=== PATIENT | male | born 1940 | race Caucasian/White ===

== ENCOUNTER → 2017-07-25 09:57 | Outpatient (CLI) | payer MEDICARE, OTHER, SELFPAY ==
[2017-07-25 12:25] LABS: Anion Gap 7 (5-15); BUN 18 mg/dL (7-18); BUN/Creat Ratio 19.7 RATIO (10-20); Calcium,Total 8.2 mg/dL (8.5-10.1); Chloride 109 mmol/L (98-107); Cholesterol 204 mg/dL (200); Creatinine, Serum 0.92 mg/dL (0.70-1.30); EST Glomerular Filtration Rate 86 mL/min (>60); Est Glom Filt Rate - Afr Amer 104 mL/min (>60); Glucose 103 mg/dL (74-106); High Density Lipoprotein 47 mg/dL; PSA,Total - Annual Screen 1.86 ng/mL (0.00-4.00); Potassium 4.3 mmol/L (3.5-5.1); Sodium Level 140 mmol/L (136-145); Triglycerides 103 mg/dL; Very Low Density Lipoprotein 21 mg/dL (5-40)
[2017-07-26 10:00] LABS: Vitamin D,25 Hydroxy 27.5 ng/mL (29.95-100.01)
== END ==
PROVIDERS: Family Provider Family Medicine; PCP Family Medicine; Visit Provider Family Medicine
DX: Z00.00 Encounter for general adult medical examination without abnormal findings (principal)
CPT/HCPCS: 36415; 80048; 80061; 82306; 84153; G0103

== ENCOUNTER → 2018-07-28 10:24 | Outpatient (CLI) | payer MEDICARE, OTHER, SELFPAY ==
[2018-06-17 08:49] VITALS: BMI 30.5
[2018-07-28 12:49] LABS: Vitamin D,25 Hydroxy 33.9 ng/mL (29.95-100.01)
[2018-07-28 12:58] LABS: Anion Gap 6 (5-15); BUN 21 mg/dL (7-18); BUN/Creat Ratio 24.1 RATIO (10-20); Chloride 110 mmol/L (98-107); Cholesterol 203 mg/dL (200); Creatinine, Serum 0.87 mg/dL (0.70-1.30); EST Glomerular Filtration Rate 91 mL/min (>60); Est Glom Filt Rate - Afr Amer 110 mL/min (>60); Glucose 108 mg/dL (74-106); High Density Lipoprotein 48 mg/dL; PSA,Total - Annual Screen 2.12 ng/mL (0.00-4.00); Potassium 4.3 mmol/L (3.5-5.1); Sodium Level 142 mmol/L (136-145); Triglycerides 97 mg/dL; Very Low Density Lipoprotein 19 mg/dL (5-40)
== END ==
PROVIDERS: Family Provider Family Medicine; PCP Family Medicine; Visit Provider Family Medicine
DX: Z00.00 Encounter for general adult medical examination without abnormal findings (principal); E55.9 Vitamin D deficiency, unspecified; Z12.5 Encounter for screening for malignant neoplasm of prostate
CPT/HCPCS: 36415; 80048; 80061; 82306; 84153; G0103

== ENCOUNTER → 2020-05-12 10:42 | Outpatient (CLI) | payer MEDICARE, OTHER, SELFPAY ==
[2019-06-18 10:19] VITALS: BMI 29.8
[2020-05-12 12:29] LABS: Anion Gap 4 (5-15); BUN 21 mg/dL (7-18); BUN/Creat Ratio 23.1 RATIO (10-20); Calcium,Total 9.5 mg/dL (8.5-10.1); Chloride 108 mmol/L (98-107); Cholesterol 222 mg/dL (200); Creatinine, Serum 0.91 mg/dL (0.70-1.30); EST Glomerular Filtration Rate 86 mL/min (>60); Est Glom Filt Rate - Afr Amer 104 mL/min (>60); Glucose 101 mg/dL (74-106); High Density Lipoprotein 42 mg/dL; PSA,Total - Annual Screen 3.05 ng/mL (0.00-4.00); Potassium 4.1 mmol/L (3.5-5.1); Sodium Level 139 mmol/L (136-145); Triglycerides 135 mg/dL; Very Low Density Lipoprotein 27 mg/dL (5-40)
== END ==
PROVIDERS: PCP Family Medicine; Referring Provider Family Medicine; Visit Provider Family Medicine
DX: Z00.00 Encounter for general adult medical examination without abnormal findings (principal); Z12.5 Encounter for screening for malignant neoplasm of prostate; E78.5 Hyperlipidemia, unspecified
CPT/HCPCS: 36415; 80048; 80061; 84153; G0103

== ENCOUNTER → 2020-05-30 06:47 | Outpatient (CLI) | payer MEDICARE, OTHER, SELFPAY ==
[2020-05-18 09:48] VITALS: BMI 29.8
--- NOTE | 2020-05-30 06:53 | ECHOCS_ITS ---
Reason For Study: Afib/Flutter Procedure This was a 2D Doppler, Color Flow transthoracic echocardiogram. The study was technically difficult. Contrast injection was performed. Exam performed in department. Left Ventricle Normal LV size. Left ventricular systolic function is normal. The estimated ejection fraction is 65 %. Unable to assess diastolic dysfunction due to arrhythmia. No regional wall motion abnormalities noted. Right Ventricle Normal RV size. Normal systolic function. Atria The left atrium is mildly enlarged. Normal right atrium. Mitral Valve Normal mitral valve. Tricuspid Valve Normal tricuspid valve. Aortic Valve The aortic valve is not well visualized. Mild (1+) aortic valve insufficiency. Pulmonic Valve Normal pulmonic valve. Great Vessels Normal aortic root. The pulmonary artery is normal size. Normal inferior vena cava. Pericardium/Pleural No pericardial effusion. Medication 22 gauge I.V. with prn adaptor inserted into right arm. Diluted definity 5ml given slow IV push to enhance endocardial definition. MMode/2D Measurements & Calculations LVIDd: 4.2 cm IVSd: 1.4 cm LAV(MOD-bp): 74.1 ml LVIDs: 3.0 cm LVPWd: 1.4 cm FS: 28.6 % LAV(MOD-bp) Indexed: 30.7 ml/m2 LAV(MOD-sp2): 82.3 ml LAV(MOD-sp4): 63.2 ml LA A4 area: 21.7 cm2 RA A4 area: 17.6 cm2 Doppler Measurements & Calculations MV E max nay: 97.2 cm/sec Ao V2 max: 103.0 cm/sec AI max nay: 356.3 cm/sec Ao max P.3 mmHg AI max P.8 mmHg AI dec slope: 217.2 cm/sec2 AI P1/2t: 480.5 msec LV V1 max: 74.2 cm/sec MR max nay: 478.6 cm/sec PA V2 max: 89.6 cm/sec LV V1 max P.2 mmHg MR max P.6 mmHg Interpretation Summary Normal LV size. Left ventricular systolic function is normal. The estimated ejection fraction is 65 %. Unable to assess diastolic dysfunction due to arrhythmia. Mild (1+) aortic valve insufficiency. Contrast injection was performed. Ordering Physician: Gilberto Jack Referring Physician: Isaak Cruz Performed By: Hiram Yoo RCS
[2020-05-30 11:00] LABS: Anion Gap 5 (5-15); BUN 22 mg/dL (7-18); BUN/Creat Ratio 24.6 RATIO (10-20); Chloride 106 mmol/L (98-107); EST Glomerular Filtration Rate 87 mL/min (>60); Est Glom Filt Rate - Afr Amer 106 mL/min (>60); Glucose 104 mg/dL (74-106); Potassium 4.1 mmol/L (3.5-5.1); Sodium Level 141 mmol/L (136-145)
--- NOTE | 2020-05-30 16:39 | STRESSREP ---
Stress Test Report Pharmacologic myocardial perfusion stress test. 80-year-old man with a history of coronary artery disease status post previous catheterization demonstrating moderate disease noted in the left anterior descending artery. Stress protocol : Resting EKG demonstrates atrial fibrillation with a rate of 78 bpm normal intervals are noted resting blood pressure is 118/90 mmHg. 0.4 mg of regadenoson was infused per usual protocol followed by rapid intravenous saline flush injection continuous EKG monitoring was performed. The maximum heart rate attained was 103 bpm which was 72% of max impacted heart rate the maximum workload was 1 metabolic equivalent. At rest there were no ST or T wave changes noted to suggest abnormal flow reserve at peak infusion nonspecific ST-T wave changes were noted. The patient maintained atrial fibrillation throughout the recording. The resting blood pressure was 118/90 with a final blood pressure of the same. Myocardial perfusion protocol. 14.8 mCi of technetium 99m sestamibi was injected at rest. 0.4 mg of regadenoson was infused per usual protocol. At peak infusion 45.0 mCi of technetium 99m sestamibi was injected stress images were obtained stress and rest images were reconstructed and compared in the short axis vertical long horizontal long axis. Perfusion SPECT analysis: Review of the stress images demonstrate normal uptake of tracer noted in all areas of the myocardium the resting images similarly demonstrate normal uptake of tracer noted in all areas of the myocardium. No areas of reversibility are noted suggest ischemia no previous infarct is noted. Gated ejection fraction. No gating was performed. Conclusion: Normal pharmacologic myocardial perfusion stress test with no evidence of ischemia. Atrial fibrillation noted.
== END ==
PROVIDERS: PCP Family Medicine; Referring Provider Internal Medicine Cardiovascular Disease; Visit Provider Internal Medicine Cardiovascular Disease
DX: I48.19 Other persistent atrial fibrillation (principal); I48.92 Unspecified atrial flutter; R07.9 Chest pain, unspecified
CPT/HCPCS: 36415; 78452; 80048; 93017; 93306; A9500; Q9957; A4216; C8929; J2785

== ENCOUNTER 2020-06-06 10:22 | Day surgery (SDC) | payer MEDICARE, OTHER, SELFPAY ==
[2020-05-18 09:48] VITALS: BMI 29.8
[2020-06-03 08:46] VITALS: BMI 29.8
--- NOTE | 2020-06-06 12:14 | CARDIOVERS ---
Cardioversion Cardioversion: DC cardioversion. 80-year-old man with a history of persistent atrial fibrillation. Patient has been on anticoagulation which has been verified. The patient was seen by Dr. Gates of the critical care division. Informed consent was obtained. Anterior posterior pads were applied. The patient was then administered 60 mg of intravenous propofol and then 200 J of synchronized biphasic energy were applied with prompt reversal to sinus rhythm. Patient tolerated the procedure well. Conclusion: Successful DC cardioversion to sinus rhythm Continue current medications Continue anticoagulation. Follow-up per office protocol.
--- NOTE | 2020-06-06 13:00 | PRO.PCM_ITS ---
Problem List (1) Hyperlipidemia Status: Chronic (2) Nonobstructive atherosclerosis of coronary artery Status: Chronic (3) Persistent atrial fibrillation Status: Chronic Procedure Report Date of Procedure: 06/06/20 - Sedation CONSCIOUS SEDATION REPORT BRIEF HISTORY OF PRESENT ILLNESS: The patient is a 80-year-old male who presented to [facility] for an elective outpatient cardioversion due to underlying atrial fibrillation. The patient reports no PO intake since midnight. The patient does not have a history of obstructive sleep apnea. The patient reports a history of smoking, but not formally diagnosed with COPD. The patient denies any recent constitutional symptoms such as fevers, chills, nausea or vomiting. The patient denies previous anesthetic complications. Patient's last EF was 65% and patient reports taking Eliquis on the day of the procedure. PHYSICAL EXAMINATION: VITAL SIGNS: Reviewed and were acceptable. GENERAL: The patient is a male, in no apparent distress, speaking in full sentences. HEENT: Normocephalic, atraumatic. Mucous membranes are moist and pink. Good mouth opening noted. Trachea is midline. Good neck mobility. MP II CHEST: S1, S2 irregularly irregular. No murmurs, rubs or gallops were noted. LUNGS: Clear to auscultation bilaterally without appreciable wheezes, rales or rhonchi. ABDOMEN: Soft, nontender, nondistended. Positive bowel sounds. EXTREMITIES: There is no clubbing, cyanosis or edema. ASA Class: II DESCRIPTION OF PROCEDURE: After confirmation of informed consent, the patient's anesthesia plan was reviewed in detail. Propofol was chosen. Risks and benefits were reviewed and the patient agreed to proceed. At 12:04 PM, the patient was given 40 mg of propofol. The patient required a total of 60 mg of propofol throughout the procedure to achieve appropriate sedation. The patient achieved an appropriate level of sedation and received 1 attempt synchronized cardioversion, at [address] Jack at the bedside. This was successful in achieving normal sinus rhythm. The patient was monitored until 12:20 PM, at which time the patient reached their baseline mental status and function. The patient tolerated the procedure well. COMPLICATIONS: None ESTIMATED BLOOD LOSS: None RECOMMENDATIONS: Okay to recover in usual fashion. 9xxxx: Other Procedure See Report - [id number] -16 minutes conscious sedation
== END 2020-06-06 13:00 | disposition home or self-care (01) ==
LOC: CLSP 10:23
PROVIDERS: PCP Family Medicine; Referring Provider Internal Medicine Cardiovascular Disease; Visit Provider Internal Medicine Cardiovascular Disease
DX: I48.19 Other persistent atrial fibrillation (principal); I25.10 Atherosclerotic heart disease of native coronary artery without angina pectoris; E78.5 Hyperlipidemia, unspecified; E66.9 Obesity, unspecified; Z68.29 Body mass index [BMI] 29.0-29.9, adult; Z79.01 Long term (current) use of anticoagulants; Z79.899 Other long term (current) drug therapy; Z87.891 Personal history of nicotine dependence; Z82.49 Family history of ischemic heart disease and other diseases of the circulatory system
CPT/HCPCS: 92960; 93005; J7040

== ENCOUNTER → 2020-12-21 13:36 | Outpatient (CLI) | payer MEDICARE, OTHER, SELFPAY ==
--- NOTE | 2020-12-21 14:25 | VDLE_ITS ---
Reason For Study: RLE PAIN RIGHT GSV is normal. CFV is compressible, spontaneous, phasic, competent and demonstrates normal augmentation. FV is compressible, spontaneous, phasic, competent and demonstrates normal augmentation. POP V is compressible, spontaneous, phasic, competent and demonstrates normal augmentation. T/P Trunk is compressible. PTV is compressible. Procedure This is a venous duplex using B-mode, color flow and spectral Doppler. Exam performed in department. The study was technically difficult. Unable to visualize RT PERV. A preliminary report was called and/or faxed to Dr. Cruz @ [phone] @ 2:45 pm. VL/Venous Duplex US, Unilateral Interpretation Summary There is no evidence of right lower extremity deep vein thrombosis. Right great saphenous vein appears patent and compressible segmentally. Unable to visualize right peroneal vein The examination was noted to be technically difficult Ordering Physician: Isaak Cruz Referring Physician: Isaak Cruz Performed By: Michelle Ward, RDCS, RVT
== END ==
PROVIDERS: PCP Family Medicine; Referring Provider Family Medicine; Visit Provider Family Medicine
DX: M79.661 Pain in right lower leg (principal)
CPT/HCPCS: 93971

== ENCOUNTER → 2020-12-26 07:41 | Outpatient (CLI) | payer MEDICARE, OTHER, SELFPAY ==
[2020-09-13 09:54] VITALS: BMI 29.8
--- NOTE | 2020-12-26 07:57 | CT_ITS ---
STUDY: CT LEFT LOWER EXTREMITY WITHOUT CONTRAST REASON FOR EXAM: Left knee osteoarthritis, surgical planning. TECHNIQUE: Transaxial CT imaging of the lower extremity was performed. Coronal and sagittal images were reformatted. Individualized dose optimization techniques were used for this CT. COMPARISON: None. FINDINGS: Knee: There are marginal osteophytes, mild subchondral cystic change of the medial tibial plateau and subchondral eburnation with moderate joint space narrowing of the medial femorotibial compartment (coronal reconstructions 26-28). There are small marginal osteophytes with preservation of joint space of the lateral femorotibial compartment. There are small marginal osteophytes with preservation of joint space of the patellofemoral compartment. Normal proximal tibiofibular articulation. There is a moderate-sized joint effusion. The quadriceps tendon is grossly normal. The patellar tendon is grossly normal. Normal Hoffa''s fat pad. There is a popliteal cyst containing intra-articular bodies (sagittal reconstructions 20-27). There is an intra-articular body in the distal popliteus tendon sheath (sagittal reconstructions 40-42). There is vascular calcification. Hip: There are very small marginal osteophytes of the left femoral head and mild to moderate joint space narrowing of the superior lateral left hip joint (coronal reconstruction 55). Ankle: Normal tibiotalar, posterior subtalar and talonavicular articulations. CT/Extremity Lower without Contra IMPRESSION: Left knee osteoarthritis. Electronically Signed: Shaun Tapia MD at 15:01 EDT Tel , Service support ,
== END ==
PROVIDERS: PCP Family Medicine; Referring Provider Orthopaedic Surgery; Visit Provider Orthopaedic Surgery
DX: M17.12 Unilateral primary osteoarthritis, left knee (principal)
CPT/HCPCS: 73700

== ENCOUNTER 2021-01-09 05:19 | Day surgery (SDC) | payer MEDICARE, OTHER, SELFPAY ==
[2020-09-13 09:54] VITALS: BMI 29.8
--- NOTE | 2020-12-26 07:49 | EKG12_ITS ---
Test Reason : PRE OP Blood Pressure : / mmHG Vent. Rate : 060 BPM Atrial Rate : 060 BPM P-R Int : 188 ms QRS Dur : 098 ms QT Int : 404 ms P-R-T Axes : 047 -44 002 degrees QTc Int : 404 ms Sinus rhythm with marked sinus arrhythmia Left axis deviation Abnormal ECG Confirmed by LESLEY SANTAMARIA, ESTIVEN ([id number]), web content editor SKIP BERGER ([id number]) on 12/26/2020 11:29:40 AM Referred By: Ld Estrada Confirmed By:ESTIVEN SUTTON MD
--- NOTE | 2020-12-26 07:49 | RAD_ITS ---
STUDY: X-RAY CHEST REASON FOR EXAM: Male, 80 years old. PREOP TECHNIQUE: PA and lateral views of the chest. COMPARISON: 07/27/2015 FINDINGS: There are interstitial fibrotic changes of the lungs. No airspace consolidation. There is no demonstrated pleural abnormality. Normal size heart. Normal mediastinum and jatinder. Normal visualized pulmonary arteries. There is atherosclerotic calcification of the aortic arch with tortuosity. There are diffuse degenerative changes of the visualized thoracic spine. Normal visualized ribs, clavicles, and shoulders. There is no demonstrated abnormality of the visualized soft tissue structures of the upper abdomen. RAD/Chest PA and Lateral IMPRESSION: No acute cardiopulmonary process. Electronically Signed: Guille Yusuf MD (Brooks) at 16:47 EDT , Service support ,
[2020-12-26 10:25] LABS: Absolute Lymphocyte Count 1.31 X10^3/uL (0.83-4.51); Absolute Neutrophil Count 3.8 X10^3/uL (2.0-7.7); Basophil# 0.03 X10^3/uL; Basophil% 0.5 % (0-1); Eosinophil# 0.15 X10^3/uL; Eosinophils% 2.5 % (0-5); Hematocrit 39.9 % (40-54); Hemoglobin 13.1 g/dL (13.0-16.5); Lymphocyte # 1.31 X10^3/ul (0.83-4.51); Lymphocyte % 21.9 % (19-41); Mean Corp Hgb Conc 32.8 g/dL (32-36); Mean Corpuscular Hgb 29.2 pg (27.0-32.0); Mean Corpuscular Volume 88.9 fL (80-94); Mean Platelet Vol. 9.7 fl (6.2-12.0); Monocyte# 0.66 X10^3/uL; NRBC Flagged by Analyzer 0 % (0-5); Neutrophil # 3.83 X10^3/uL (2.7-7.7); Neutrophil % 63.9 % (47-70); Platelet Count 267 K/mm3 (150-450); RBC Distribution Width CV 12.6 % (11.6-14.6); RBC Distribution Width SD 41.2 fl (35.1-43.9); Red Blood Count 4.49 M/mm3 (4.6-6.2)
[2020-12-26 10:52] LABS: Magnesium 2.3 mg/dL (1.6-2.6)
[2020-12-26 10:57] LABS: Anion Gap 4 (5-15); BUN 22 mg/dL (7-18); BUN/Creat Ratio 30.7 RATIO (10-20); Calcium,Total 9.2 mg/dL (8.5-10.1); Chloride 110 mmol/L (98-107); Creatinine, Serum 0.72 mg/dL (0.70-1.30); EST Glomerular Filtration Rate 113 mL/min (>60); Est Glom Filt Rate - Afr Amer 136 mL/min (>60); Glucose 96 mg/dL (74-106); Potassium 4.2 mmol/L (3.5-5.1); Sodium Level 140 mmol/L (136-145)
[2021-01-09] VITALS (12 sets, daily range): BP systolic 86–109; BP diastolic 47–60; PULSE 52–66; RESP 16–18; TEMP 35.9–37; O2SAT 93–100; BMI 30.9
[2021-01-09] MEDS: Celecoxib 200 MG Capsule 400 MG PO (06:02)
[2021-01-09] MEDS: Acetaminophen 500 MG Tablet 1000 MG PO ×3 (06:02→21:46)
[2021-01-09] MEDS: Gabapentin 600 MG Tablet PO (06:03)
[2021-01-09] MEDS: Lactated Ringers 1,000 ML 75 ML IV (06:03)
[2021-01-09 07:11] LABS: Bedside Glucose 124 mg/dL (70-110)
--- NOTE | 2021-01-09 07:30 | KNEE_PTH ---
PATIENT: ENRICO MUÑOZ LOC: [facility] [place] U#:[id number] AGE/SX: 80/M ROOM: RE01/09/[address]: Dr. Ld Estrada DO : 1940 BED: DIS: 01/10/2021 SPEC #: [id number] RECD: 01/09/21 12:56 STATUS: LIYAH REQ #: [id number] CHAO: 01/09/21 07:[address]: Ld Estrada DEPT: SURGICAL PATHOLOGY RECD BY: Louisa Nichols ENTERED: 01/09/21 13:12 SP TYPE: TOTAL KNEE OTHR DR: Dr. Isaak Cruz MD Tissues: Knee, NOS Procedures: Decalcification bone/plaque Surgery Specimen Level IV HEADER OPERATION: ERAS, left total knee replacement robotic arm assist PRE-OP DIAGNOSIS: Grade 4 osteoarthritis left knee TISSUE SUBMITTED: Debrided bone and tissue left knee MICROSCOPIC DIAGNOSIS Bone and tissue, left knee, total knee replacement/resection: Pieces of bone with degenerative osteoarthritic changes. Fibroadipose tissue, fibroconnective tissue and reactive synovial tissue. OSITO:pilar 01/12/2021 MICROSCOPIC DESCRIPTION Slides are reviewed. GROSS DESCRIPTION Received is one container designated debrided bone and tissue left knee. The specimen consists of multiple fragments of paz-yellow bone measuring in aggregate 16 x 14 x 2 cm. Also in the specimen container are multiple fragments of yellow-white soft tissue measuring in aggregate 12 x 10 x 2 cm. A number of bony fragments contain articular surfaces consistent with tibial plateau and femoral condyle and displaying prominent osteophyte formation, eburnation, and bone erosion. Enrollment Management Manager sections are submitted in two cassettes as follows: 1 - soft tissue, 2 - bone after decalcification. / AM:pilar 01/09/21 TC:5 [facility]: [id number], [id number]
[2021-01-09] MEDS: Cefazolin 2 GM in 0.9% Normal Saline 100 ML IV (07:36)
--- NOTE | 2021-01-09 09:08 | RAD_ITS ---
STUDY: X-RAY - LEFT KNEE REASON FOR EXAM: Male, 80 years old. Total knee arthroplasty. Immediate follow-up. TECHNIQUE: 2 view(s) of the knee. COMPARISON: None. FINDINGS: There is a 3 component total knee arthroplasty in anatomic position. There are expected post-operative findings. There are no complications. No other significant abnormality is identified. RAD/Knee 1 or 2 Views IMPRESSION: Total knee arthroplasty in anatomic alignment without complications. Electronically Signed: Antoni Lai MD at 10:43 EDT , Service support ,
--- NOTE | 2021-01-09 09:46 | OP.PCM_ITS ---
Report of Operation Date of Procedure: 01/09/21 Pre-Operative Diagnosis: OA left knee Post-Operative Diagnosis: same Surgery/Procedure Performed:: Left TKR Description of Surgical Findings:: Report of Operation Date of Procedure: 01/09/2021 Preoperative Diagnosis: [left ] knee primary osteoarthritis Postoperative Diagnosis: [left ] knee primary osteoarthritis Operation: Robotic Assisted Knee Total Arthroplasty, [ left ] knee Surgeon: Dr Ld Estrada DO Success Coach: Antoni Diana PA-C Anesthesia: spinal Anesthesiologist: Cheikh Cruz M.D. Findings: Stable knee with good patella tracking Specimen(s): Bony cuts Complications: No intraoperative complications Estimated Blood Loss: 40 cc IV Fluids: 1000 cc crystalloid Implants Used: 1. Sterling Triathlon size 6 CR press-fit femur 2. [employer] Triathlon size 7 tibia 3. 38 mm patella 4. 9 mm CS polyethylene Brief History Operative Indications: [ (80 y/o male) ] with history of [ left ] knee osteoarthrosis with radiographic findings with loss of joint space, osteophyte formation and subchondral sclerosis. Failed conservative measures as mentioned in the H&P. Discussion of total knee arthroplasty as well as risk and benefits were discussed with the patient including but not limited to blood loss, DVTs, PEs, neurovascular damage, general risk of anesthesia including loss of life, and stiffness or instability were also discussed with the patient. Patient demonstrated understanding and was able to sign informed consent. Procedure: On the date of procedure, patient's [ left ] lower extremity was marked in the preoperative area. The patient was then taken back to the operating room where that patient was placed on the table in the supine position. All bony prominences were identified and well-padded. Anesthesia assumed control of the C-spine and airway throughout the remainder of the procedure. A tourniquet was placed on the [ left ] upper thigh and the leg was prepped in a sterile fashion. The surgeon then scrubbed at this time. Upon reentering the room, the [ left ] lower extremity was draped in a standard orthopedic fashion. A timeout was then called and everyone agreed upon the side, the site, the procedure to be performed, patient's identity and antibiotics given. Esmarch bandage was used to exsanguinate the extremity and the tourniquet was placed up to 250 mmHg with the knee in flexion. A midline skin incision was made and a sharp dissection was taken down through skin, subcutaneous tissue and fat. The standard medial parapatellar incision was made and the patella was subluxed laterally. An appropriate deep MCL release was done and the fat pad was resected. Our attention was then directed to the patella. The patella was everted and a flat resection was made. The knee was then flexed up and 2 femoral pins were placed inside the incision and 2 tibial pins were placed outside the incision in the medial tibia bicortically. Once this was completed, the 2 checkpoints in the femur and tibia were placed. Knee was then flexed up and the bony landmarks were registered. Once the was completed, the knee taken through range of motion and manually stressed allowing us to plan for an appropriate tibial cut. The robotic arm was brought into the field sterilely and checkpoint and saw were registered. Based on the patient's deformity, the tibial cut was made in [1 degree varus ]. At this time, the tensioner was then placed in the joint and ligament tension was checked at 90 degrees and full extension. Based on the patient's ligamentous tension, appropriate adjustments were made to the operative plan and ligament releases were done. Once we were happy with our operative plan with balanced flexion and extension gaps, our attention was directed to the femur. The robot was brought into the field sterilely and registered. Posterior condylar cuts, anterior chamfer cuts and anterior cuts were appropriately made for a [size 6 ] femur. When these were completed, the saws were switched out in the distal femoral and posterior chamfer cuts were made. Protecting the soft tissue throughout this time. A [size 7 ] base plate was selected. The knee was flexed to 90 degrees and soft tissues and posterior osteophytes were removed from the joint. 40 cc of the periarticular injection was injected into the posterior medial corner of the joint. The appropriate trials were then placed on the femur and tibia. A trial polyethylene was trialed to ensure proper balancing and stability of the knee. The appropriate tibial internal rotation was then marked with a bovie. Our attention was then directed to the patella. The lug holes were drilled and the patella trial was placed. Patellar tracking was checked and deemed appropriate. Once we were happy, lug holes were drilled for the femur and trial components were removed. The tibia was subluxed and pinned into place and the keel was punched and drilled appropriately. Final components were verified and opened. The wound was copiously irrigated with normal saline. The components were impacted into place with the tibia, femur and finally the patella. The trial poly component was placed and the knee was placed in full extension. The tracking, alignment and balance were verified and a [9 mm CS ] polyethylene component was placed. Once the final components were placed an Irrisept lavage was performed and the wound was copiously irrigated with normal saline solution and the periarticular injection was given. the wound was closed in a layer-dunaway fashion using #1 vicryl interrupted sutures for the arthrotomy, 2-0 interrupted vicryl suture for the subcuticular layer and angelia for final skin closure. A sterile compressive dressing was then placed. The patient was then awakened from anesthesia, transferred to the rbyers and transferred to the PACU for recovery. My physician exceptional children teacher assistant was a vital part of this case. He was important in appropriate retraction during the case, and protection of soft tissues during bony cuts. His intimate knowledge of the case and my steps aided in safe and expedient completion of the procedure as well as appropriate position of the leg during the case. He was also vital in assisting with closure under my direct supervision. Due to the complexity of this case, robotic arm was used to assist in the surgery to improve accuracy and clinical outcomes. Post-op Plan: DVT ppx; ASA 81 mg BID, thigh high compression stockings Follow up: in office in 2 weeks for wound check PT: to start POD #0 at hospital, outpatient PT should be arranged. Preoperative antibiotic: Anceff 2 grams IV Ld Estrada DO Surgeon: Ld Estrada chart picker: Antoni Diana Type of Anesthesia: Spinal Anesthesiologist: Cheikh Cruz Estimated Blood Loss (mL): 40 cc Fluids Replaced: 1000 cc crystalloid Admit VTE Documentation VTE Present on Admission: No VTE Mechan Device Prophylaxis: SCD's and Thigh High AARON Hose VTE Pharm Prophylaxis ordered?: Yes
[2021-01-09] MEDS: Lactated Ringers 1,000 ML 125 ML IV ×3 (10:00→23:52)
[2021-01-09] MEDS: Lactated Ringers 1,000 ML 999 ML IV (10:35)
[2021-01-09] MEDS: Sertraline 50 MG Tablet 25 MG PO (12:33)
[2021-01-09] MEDS: oxyCODONE 5 MG Tablet PO (12:45)
[2021-01-09] MEDS: 0.9% Normal Saline 1,000 ML 999 ML IV (14:25)
[2021-01-09] MEDS: Cefazolin 1 GM/50 ML BAG IV ×2 (15:55→23:36)
[2021-01-09] MEDS: Senna/Docusate Sodium 1 Tablet 2 TABLET PO (21:46)
[2021-01-09] MEDS: APIXABAN 5 MG TABLET PO (21:46)
[2021-01-10 04:36] VITALS: BP 101/41; PULSE 60; RESP 16; TEMP 36.6; O2SAT 99; BMI 30.9
[2021-01-10 05:45] LABS: Hematocrit 28.3 % (40-54); Hemoglobin 9.2 g/dL (13.0-16.5); Mean Corp Hgb Conc 32.5 g/dL (32-36); Mean Corpuscular Hgb 29.2 pg (27.0-32.0); Mean Corpuscular Volume 89.8 fL (80-94); Mean Platelet Vol. 9.6 fl (6.2-12.0); Platelet Count 191 K/mm3 (150-450); RBC Distribution Width CV 13.1 % (11.6-14.6); RBC Distribution Width SD 42.9 fl (35.1-43.9); Red Blood Count 3.15 M/mm3 (4.6-6.2); White Blood Count 6.2 K/mm3 (4.4-11.0)
[2021-01-10 05:59] LABS: Anion Gap 4 (5-15); BUN 20 mg/dL (7-18); BUN/Creat Ratio 26.4 RATIO (10-20); Calcium,Total 7.9 mg/dL (8.5-10.1); Chloride 107 mmol/L (98-107); Creatinine, Serum 0.76 mg/dL (0.70-1.30); EST Glomerular Filtration Rate 106 mL/min (>60); Est Glom Filt Rate - Afr Amer 128 mL/min (>60); Glucose 132 mg/dL (74-106); Potassium 4.2 mmol/L (3.5-5.1); Sodium Level 138 mmol/L (136-145)
[2021-01-10] MEDS: Acetaminophen 500 MG Tablet 1000 MG PO ×2 (06:11→13:31)
[2021-01-10] MEDS: oxyCODONE 5 MG Tablet PO (06:13)
--- NOTE | 2021-01-10 07:21 | PCM.PN.ORT ---
Subjective Subjective Patient sitting at bedside. Patient states pain is very well managed. Patient denies chest pain, shortness of breath, calf pain, nausea vomiting. Patient has no other complaints at this time. Patient states he is ready for discharge home today. Patient plans on doing physical therapy at [facility] Objective Data Objective Data Patient sitting at bedside, with right leg elevated. Patient has a small area of dried blood within the mid section of the dressing. There is no active bleeding. Patient has no calf tenderness. Vital signs labs were reviewed noted in the medical record. Patient is afebrile. Patient is in no respiratory distress and speaking in full sentences. Vital Signs: Vital Signs Temp Pulse Resp BP Pulse Ox 97.9 F 60 16 101/41 L 99 01/10/21 04:36 01/10/21 04:36 01/10/21 04:36 01/10/21 04:36 01/10/21 04:36 Oxygen Flow Rate (L/min) 6 Oxygen Delivery Method Room Air Weight: 106.3 kg Body Mass Index (BMI) 30.9 Intake & Output: Intake and Output for Last 24 Hours 01/08/21 01/09/21 01/10/21 23:59 23:59 23:59 Intake Total 5741.50 / 5741.50 856.25 / 856.25 Output Total 850 / 850 1250 / 1250 Balance 4891.50 / 4891.50 -393.75 / -393.75 Lab / Micro Data Result Diagrams: 01/10/21 04:52 01/10/21 04:52 Labs: Laboratory Results - last 24 hr 01/10/21 04:52: WBC 6.2, RBC 3.15 L, Hgb 9.2 L, Hct 28.3 L, MCV 89.8, MCH 29.2, MCHC 32.5, RDW Std Deviation 42.9, RDW Coeff of Megan 13.1, Plt Count 191, MPV 9.6 01/10/21 04:52: Sodium 138, Potassium 4.2, Chloride 107, Carbon Dioxide 27.0, Anion Gap 4 L, BUN 20 H, Creatinine 0.76, Estim Creat Clear Calc 68.80, Est GFR (MDRD) Af Amer 128, Est GFR (MDRD) Non-Af 106, BUN/Creatinine Ratio 26.4 H, Glucose 132 H, Calcium 7.9 L Micro: Microbiology 12/26/20 08:33 Swab (Method) Nasal Screen MRSA/MSSA - Final Radiography Diagnostic Testing: Radiology Impression Knee X-Ray 01/09/21 09:08 IMPRESSION: Total knee arthroplasty in anatomic alignment without complications. Electronically Signed: Antoni Lai MD at 10:43 EDT , Service support , Assessment & Plan Assessment/Plan (1) S/P total knee arthroplasty: PLAN: 1. Continue all pain medications as prescribed 2. Resume Eliquis for postop DVT prophylaxis 3. Encourage incentive spirometry 4. Discharge home today 5. We will continue outpatient physical therapy at [facility] 6. Follow-up with Dr. Estrada as scheduled, (see pink sheet ) 7. Discharge home today after p.m. therapy
[2021-01-10 07:43] VITALS: BP 114/89; PULSE 99; RESP 18; TEMP 36.7; O2SAT 96; BMI 30.9
--- NOTE | 2021-01-10 08:03 | PCM.DC ---
Discharge Instructions Follow Up Care Test Results: Test results from this visit will be discussed in further detail at your follow-up appointment, if applicable. Discharge Plan Admission Primary Reason for Your Visit: Right total knee arthroplasty Attending Provider: Ld Estrada Primary Care Provider: Isaak Cruz Discharge Orders/Prescriptions Prescriptions: New acetaminophen 500 mg Tablet 1,000 mg PO Q8 MDD 3000 mg daily Qty: 90 RF: 0 oxycodone 5 mg Tablet 5 - 10 mg PO Q4H PRN PRN (Reason: Pain Score 4-10) 7 Days Qty: 84 RF: 0 Continued multivitamin [Daily Multi-Vitamin] tablet 1 tab PO DAILY RF: 0 tamsulosin [Flomax] 0.4 mg capsule 0.4 mg PO DAILY RF: 0 cholecalciferol (vitamin D3) 1,250 mcg (50,000 unit) capsule 1,000 mcg PO DAILY RF: 0 Eliquis 5 mg tablet 5 mg PO BID RF: 0 sertraline 25 mg tablet 25 mg PO DAILY RF: 0 Glucosamine Chondroitin 550-30-1 mg Capsule 1 cap PO BID RF: 0 Red Huerta 1 packet PO/SL DAILY RF: 0 metoprolol succinate 25 mg tablet extended release 24 hr 25 mg PO DAILY Qty: 90 RF: 6 Referrals / Follow Up: Isaak Cruz MD [Primary Care Provider] - Disposition Disposition (needs filled in before D/C Order can be placed): Home, Self Care
[2021-01-10 08:30] VITALS: O2SAT 99
[2021-01-10 09:22] VITALS: O2SAT 96
[2021-01-10 10:40] VITALS: PULSE 80
[2021-01-10] MEDS: Metoprolol(XL)Succ 25 MG Tablet PO (10:40)
[2021-01-10] MEDS: Tamsulosin HCl 0.4 MG Capsule PO (10:40)
[2021-01-10] MEDS: APIXABAN 5 MG TABLET PO (10:40)
[2021-01-10] MEDS: Senna/Docusate Sodium 1 Tablet 2 TABLET PO (10:40)
[2021-01-10] MEDS: Cholecalciferol (VIT D3) 25 MCG TABLET (1,000 UNITS) PO (10:41)
[2021-01-10] MEDS: Sertraline 50 MG Tablet 25 MG PO (10:41)
--- NOTE | 2021-01-10 11:03 | PHA.DC.MC ---
Pharmacy Service has performed discharge medication reconciliation and counseling for this patient. 1. ACETAMINOPHEN 1000MG PO Q8H 2. OXYCODONE 5-10MG PO Q4H PRN PAIN 4-10 The patient's discharge medication list was reviewed for discrepancies and discrepancies were resolved. Home Medications multivitamin 1 tab PO DAILY 06/17/18 tamsulosin 0.4 mg capsule 0.4 mg PO DAILY 06/18/19 metoprolol succinate 25 mg tablet,extended release 24 hr 25 mg PO DAILY #90 tab 04/20/20 apixaban 5 mg tablet 5 mg PO BID 05/17/20 sertraline 25 mg tablet 25 mg PO DAILY 05/17/20 cholecalciferol (vitamin D3) 1,250 mcg (50,000 unit) capsule 1,000 mcg PO DAILY cap 09/13/20 Glucosamine Chondroitin 1 cap PO BID 12/22/20 Red Huerta 1 packet PO/SL DAILY 12/22/20 acetaminophen 1,000 mg PO Q8 #90 tab MDD 3000 mg daily 01/10/21 oxycodone 5 - 10 mg PO Q4H PRN PRN 7 Days #84 tablet 01/10/21 The patient was counseled on the following discharge medications and changes in medications for homegoing were reviewed. The Reason for Use, instructions for use, and potential side effects were reviewed for all new medications. The patient's questions regarding all of their medications were answered. The patient was able to verbally demonstrate an understanding of their discharge medications.
--- NOTE | 2021-01-10 12:09 | CASEMGMT ---
DEBBIE ZAPATA Assessment: Face to Face with pt for initial transition planning/care coordination assessment. DEBBIE ZAPATA introduced self and role at [facility], pt voices understanding and consents to assessment. Pt is A/O x4 and answers all questions appropriately at this time. Pt sitting up in chair in no distress. Care providers, pharmacy, and demographics verified/updated. Admitting Dx: L TK with Yefri PCP:Nancy Specialists:Guero, cardio; Knapic, ortho Preferred Pharmacy: [facility] while inpatient Insurance: [facility], Jaco Solarsina Prescription Benefit: yes LW/HPOA: Pt denies having a LW/DPOA and denies need for info regarding AD. LNOK: Marcelo Prado, son Living Arrangements: Pt lives alone in a two story house with 2 steps to enter without a rail. Pt uses all levels of the home but will live on the main level for the next couple of weeks. Pt reports being I in ADL's and denies concerns at home. Transportation: Pt reports he drives self and denies concerns with transportation. Pt has family who can assist him to medical appts. DME/HHC/SNF: Pt previously did not use any AD for ambulation. He has a cane, w/c, BSC, FWW and raised toilet seat at home. Pt denies previous HHC or SNF stays. Pt has his outpt physical therapy set up at [facility] to start on 01/13/21. Pt states no concerns with going home at time of dc. Pt states no further concerns/needs. CM to follow. Advised pt to ask CM if any further question/concerns/needs arise, voices understanding. Pt Goal: Home with outpt therapy Plan: Home with outpt therapy
[2021-01-10 14:00] VITALS: BP 121/68; PULSE 86; RESP 18; TEMP 36.7; O2SAT 96
== END 2021-01-10 14:40 | disposition home or self-care (01) ==
LOC: SDC 05:20 → AC 05:20 → MS3 01-10 07:30
PROVIDERS: Anesthesiology; PCP Family Medicine; Referring Provider Orthopaedic Surgery; Visit Provider Orthopaedic Surgery
PROC: 0SRD0JZ Replacement of Left Knee Joint with Synthetic Substitute, Open Approach (ICD-10-PCS; CPT 27447; principal; 2021-01-09 07:00)
DX: M17.12 Unilateral primary osteoarthritis, left knee (principal); E78.5 Hyperlipidemia, unspecified; I25.10 Atherosclerotic heart disease of native coronary artery without angina pectoris; I48.0 Paroxysmal atrial fibrillation; F32.9 Major depressive disorder, single episode, unspecified; E66.9 Obesity, unspecified; Z68.30 Body mass index [BMI] 30.0-30.9, adult; Z79.899 Other long term (current) drug therapy; Z79.01 Long term (current) use of anticoagulants; Z87.891 Personal history of nicotine dependence
CPT/HCPCS: 01402; 27447; 64447; S2900; 36415; 71046; 73560; 80048; 82962; 83735; 85025; 85027; 87081; 88305; 88311; 93005; 97110; 97162; 97166; 97530; C1776; J7030; J7120; J2405

== ENCOUNTER → 2021-02-23 07:47 | Outpatient (CLI) | payer MEDICARE, OTHER, SELFPAY ==
--- NOTE | 2021-02-23 07:50 | CT_ITS ---
STUDY: CT RIGHT LOWER EXTREMITY WITHOUT CONTRAST REASON FOR EXAM: Right knee osteoarthritis, surgical planning. TECHNIQUE: Transaxial CT imaging of the lower extremity was performed. Coronal and sagittal images were reformatted. Individualized dose optimization techniques were used for this CT. COMPARISON: None. FINDINGS: Knee: There are marginal osteophytes, subchondral eburnation and severe joint space narrowing of the medial femorotibial compartment (coronal reconstruction 29). There are marginal osteophytes, mild subchondral eburnation and moderate joint space narrowing of the lateral femorotibial compartment (coronal reconstruction 31). There are marginal osteophytes and moderate joint space narrowing of the patellofemoral compartment (sagittal reconstruction 32). Normal proximal tibiofibular articulation. There is a small joint effusion. The quadriceps tendon is grossly normal. The patellar tendon is grossly normal. Normal Hoffa''s fat pad. There is a cystic lesion measuring at least 7.4 cm in length at the medial aspect of the proximal tibia with pressure erosion of the proximal tibia (coronal reconstructions 26-30). There is vascular calcification. Hip: There is right hip arthrosis with moderate joint space narrowing of the superior lateral aspect of the articulation and subchondral cyst of the lateral acetabulum (coronal reconstruction 62). Ankle: Normal tibiotalar and posterior subtalar articulations. There is mild arthrosis of the talonavicular articulation (sagittal reconstruction 56) and mild arthrosis of the calcaneocuboid articulation (sagittal reconstruction 48). There is advanced arthrosis of the navicular-cuneiform articulations (sagittal reconstructions 52-60). CT/Extremity Lower without Contra IMPRESSION: Right knee osteoarthritis. Cystic lesion at the medial aspect of the proximal tibia with pressure erosion of the proximal tibia. Electronically Signed: Shaun Tapia MD at 14:59 EST Tel , Service support ,
== END ==
PROVIDERS: PCP Family Medicine; Referring Provider Orthopaedic Surgery; Visit Provider Orthopaedic Surgery
DX: M17.11 Unilateral primary osteoarthritis, right knee (principal)
CPT/HCPCS: 73700

== ENCOUNTER 2021-03-13 16:42 | Observation (INO) | payer MEDICARE, OTHER, SELFPAY ==
[2021-02-23 11:40] LABS: Hematocrit 35.7 % (40-54); Hemoglobin 11.3 g/dL (13.0-16.5); Mean Corp Hgb Conc 31.7 g/dL (32-36); Mean Corpuscular Hgb 28.3 pg (27.0-32.0); Mean Corpuscular Volume 89.3 fL (80-94); Mean Platelet Vol. 9.3 fl (6.2-12.0); Platelet Count 314 K/mm3 (150-450); RBC Distribution Width CV 13.3 % (11.6-14.6); RBC Distribution Width SD 43.8 fl (35.1-43.9)
[2021-02-23 11:54] LABS: Hemoglobin A1c 5.1 % (3.8-5.6)
[2021-02-23 12:11] LABS: Anion Gap 7 (5-15); BUN 23 mg/dL (7-18); BUN/Creat Ratio 28.8 RATIO (10-20); Calcium,Total 9.5 mg/dL (8.5-10.1); Chloride 104 mmol/L (98-107); EST Glomerular Filtration Rate 99 mL/min (>60); Est Glom Filt Rate - Afr Amer 120 mL/min (>60); Glucose 96 mg/dL (74-106); Potassium 4.2 mmol/L (3.5-5.1); Sodium Level 137 mmol/L (136-145)
[2021-03-13] VITALS (16 sets, daily range): BP systolic 85–122; BP diastolic 47–79; PULSE 60–98; RESP 16–18; TEMP 36.1–37; O2SAT 93–100; BMI 29.9; BMI 27.7
--- NOTE | 2021-03-13 | KNEE_PTH ---
PATIENT: ENRICO MUÑOZ LOC: MS3 U#:[id number] AGE/SX: 80/M ROOM: MI305 RE03/13/[address]: Dr. Ld Estrada DO : 1940 BED: 1 DIS: 03/14/2021 SPEC #: [id number] RECD: 03/13/21 14:42 STATUS: LIYAH RERosemary #: [id number] CHAO: 03/13/21 00:[address]: Ld Estrada DEPT: SURGICAL PATHOLOGY RECD BY: Jorge Santiago ENTERED: 03/14/21 12:46 SP TYPE: TOTAL KNEE OTHR DR: MD Antoni Cartagena PA-C Tissues: Knee, NOS Procedures: Decalcification bone/plaque Surgery Specimen Level IV HEADER OPERATION: ERAS, total knee replacement robotic arm assist PRE-OP DIAGNOSIS: Primary osteoarthritis right knee TISSUE SUBMITTED: Right knee bone and tissue MICROSCOPIC DIAGNOSIS Bone and tissue of right knee, total knee resection: Severe degenerative joint disease. Mild synovial hyperplasia. AM:pilar 03/17/2021 MICROSCOPIC DESCRIPTION Slides are reviewed. GROSS DESCRIPTION Received is one container designated bone and soft tissue right knee. The specimen consists of multiple fragments of paz-yellow bone measuring in aggregate 16 x 13 x 2 cm. Also in the specimen container are multiple fragments of yellow-white soft tissue measuring in aggregate 14 x 11 x 2 cm. A number of bony fragments contain articular surfaces consistent with tibial plateau and femoral condyle and displaying prominent osteophyte formation, eburnation, and bone erosion. Manager Water Wastewater sections are submitted in two cassettes as follows: 1 - soft tissue, 2 - bone after decalcification. / AM:pilar 03/14/21 TC:5 CPT: 76935, 46330
[2021-03-13] MEDS: Gabapentin 600 MG Tablet PO (10:39)
[2021-03-13] MEDS: Lactated Ringers 1,000 ML 15 ML IV (10:39)
[2021-03-13] MEDS: Acetaminophen 500 MG Tablet 1000 MG PO ×2 (10:40→22:51)
[2021-03-13 10:56] LABS: Bedside Glucose 88 mg/dL (70-110)
[2021-03-13] MEDS: Metoprolol(XL)Succ 25 MG Tablet PO (11:19)
[2021-03-13] MEDS: Cefazolin 2 GM in 0.9% Normal Saline 100 ML IV (12:27)
--- NOTE | 2021-03-13 14:17 | OP.PCM_ITS ---
Report of Operation Date of Procedure: 03/13/21 Pre-Operative Diagnosis: OA right knee Post-Operative Diagnosis: same Surgery/Procedure Performed:: Right TKR Description of Surgical Findings:: Report of Operation Date of Procedure: 03/13/21 Preoperative Diagnosis: [right ] knee primary osteoarthritis Postoperative Diagnosis: [right ] knee primary osteoarthritis Operation: Robotic Assisted Knee Total Arthroplasty, [ ] knee Surgeon: Dr Ld Estrada DO Vamper: Antoni Diana PA-C Anesthesia: spinal Anesthesiologist: Carmelo Draper M.D. Findings: Stable knee with good patella tracking Specimen(s): Bony cuts Complications: No intraoperative complications Estimated Blood Loss: 100 cc IV Fluids: 1000 cc crystalloid Implants Used: 1. Su Triathlon press-fit CR size 6 femur 2. Su Triathlon size 7 tibia 3. 35 mm patella 4. 9 mm CS polyethylene Brief History Operative Indications: [ (80 y/o male) ] with history of [right ] knee osteoarthrosis with radiographic findings with loss of joint space, osteophyte formation and subchondral sclerosis. Failed conservative measures as mentioned in the H&P. Discussion of total knee arthroplasty as well as risk and benefits were discussed with the patient including but not limited to blood loss, DVTs, PEs, neurovascular damage, general risk of anesthesia including loss of life, and stiffness or instability were also discussed with the patient. Patient demonstrated understanding and was able to sign informed consent. Procedure: On the date of procedure, patient's [right ] lower extremity was marked in the preoperative area. The patient was then taken back to the operating room where that patient was placed on the table in the supine position. All bony prominences were identified and well-padded. Anesthesia assumed control of the C-spine and airway throughout the remainder of the procedure. A tourniquet was placed on the [right ] upper thigh and the leg was prepped in a sterile fashion. The surgeon then scrubbed at this time. Upon reentering the room, the [ right ] lower extremity was draped in a standard orthopedic fashion. A timeout was then called and everyone agreed upon the side, the site, the procedure to be performed, patient's identity and antibiotics given. Esmarch bandage was used to exsanguinate the extremity and the tourniquet was pl aced up to 250 mmHg with the knee in flexion. A midline skin incision was made and a sharp dissection was taken down through skin, subcutaneous tissue and fat. The standard medial parapatellar incision was made and the patella was subluxed laterally. An appropriate deep MCL release was done and the fat pad was resected. Our attention was then directed to the patella. The patella was everted and a flat resection was made. The knee was then flexed up and 2 femoral pins were placed inside the incision and 2 tibial pins were placed outside the incision in the medial tibia bicortically. Once this was completed, the 2 checkpoints in the femur and tibia were placed. Knee was then flexed up and the bony landmarks were registered. Once the was completed, the knee taken through range of motion and manually stressed allowing us to plan for an appropriate tibial cut. The robotic arm was brought into the field sterilely and checkpoint and saw were registered. Based on the patient's deformity, the tibial cut was made in [ 2 degrees varus ]. At this time, the tensioner was then placed in the joint and ligament tension was checked at 90 degrees and full extension. Based on the patient's ligamentous tension, appropriate adjustments were made to the operative plan and ligament releases were done. Once we were happy with our operative plan with balanced flexion and extension gaps, our attention was directed to the femur. The robot was brought into the field sterilely and registered. Posterior condylar cuts, anterior chamfer cuts and anterior cuts were appropriately made for a [ size 6 ] femur. When these were completed, the saws were switched out in the distal femoral and posterior chamfer cuts were made. Protecting the soft tissue throughout this time. A [ size 7 ] base plate was selected. The knee was flexed to 90 degrees and soft tissues and posterior osteophytes were removed from the joint. 40 cc of the periarticular injection was injected into the posterior medial corner of the joint. The appropriate trials were then placed on the femur and tibia. A trial polyethylene was trialed to ensure proper balancing and stability of the knee. The appropriate tibial internal rotation was then marked with a bovie. Our attention was then directed to the patella. The lug holes were drilled and the patella trial was placed. Patellar tracking was checked and deemed appropriate. Once we were happy, lug holes were drilled for the femur and trial components were removed. The tibia was subluxed and pinned into place and the keel was punched and drilled appropriately. Final components were verified and opened. The wound was copiously irrigated with normal saline. The components were impacted into place with the tibia, femur and finally the patella. The trial poly component was placed and the knee was placed in full extension. The tracking, alignment and balance were verified and a [9 mm CS ] polyethylene component was placed. Once the final components were placed an Irrisept lavage was performed and the wound was copiously irrigated with normal saline solution and the periarticular injection was given. the wound was closed in a layer-dunaway fashion using #1 vicr yl interrupted sutures for the arthrotomy, 2-0 interrupted vicryl suture for the subcuticular layer and angelia for final skin closure. A sterile compressive dressing was then placed. The patient was then awakened from anesthesia, transferred [facility] and transferred to the PACU for recovery. My physician assistant property manager was a vital part of this case. He was important in appropriate retraction during the case, and protection of soft tissues during bony cuts. His intimate knowledge of the case and my steps aided in safe and expedient completion of the procedure as well as appropriate position of the leg during the case. He was also vital in assisting with closure under my direct supervision. Due to the complexity of this case, robotic arm was used to assist in the surgery to improve accuracy and clinical outcomes. Post-op Plan: DVT ppx; ASA 81 mg BID, thigh high compression stockings Follow up: in office in 2 weeks for wound check PT: to start POD #0 at hospital, outpatient PT should be arranged. Preoperative antibiotic: Ancef 2 grams IV Ld Estrada DO Surgeon: Ld Estrada truer pinion and wheel: Antoni Diana Type of Anesthesia: Spinal Anesthesiologist: Carmelo Draper Estimated Blood Loss (mL): 100 cc Fluids Replaced: 1000 cc crystalloid Admit VTE Documentation VTE Present on Admission: No VTE Mechan Device Prophylaxis: SCD's and Thigh High AARON Hose VTE Pharm Prophylaxis ordered?: Yes
--- NOTE | 2021-03-13 14:45 | RAD_ITS ---
STUDY: X-RAY - RIGHT KNEE REASON FOR EXAM: Male, 80 years old. Post op -- AP and Lateral xray of operative knee in PACU TECHNIQUE: 2 view(s) of the knee. COMPARISON: None. FINDINGS: Normal visualized distal femur. Normal visualized proximal tibia and fibula. Normal proximal tibiofibular articulation. The patient is status post total knee replacement. There is good alignment. Postoperative soft tissue changes. RAD/Knee 1 or 2 Views IMPRESSION: Status post total knee replacement. There is good alignment. Postoperative soft tissue changes. Electronically Signed: Ranjeet Ley MD at 15:28 EST , Service support ,
[2021-03-13] MEDS: Lactated Ringers 1,000 ML 125 ML IV (14:47)
[2021-03-13] MEDS: Senna/Docusate Sodium 1 Tablet 2 TABLET PO (22:51)
[2021-03-13] MEDS: APIXABAN 5 MG TABLET PO (22:51)
[2021-03-13] MEDS: Cefazolin 1 GM/50 ML BAG IV (22:51)
[2021-03-13] MEDS: Aspirin 81 MG TAB.CHEW PO (22:51)
[2021-03-14 00:28] VITALS: BP 96/57; PULSE 80; RESP 18; TEMP 37.4; O2SAT 94
[2021-03-14 04:43] VITALS: BP 92/57; PULSE 78; RESP 18; TEMP 37.3; O2SAT 95
[2021-03-14] MEDS: oxyCODONE 5 MG Tablet PO ×2 (04:47→10:17)
[2021-03-14] MEDS: Acetaminophen 500 MG Tablet 1000 MG PO ×2 (05:55→13:21)
[2021-03-14] MEDS: Cefazolin 1 GM/50 ML BAG IV (05:55)
[2021-03-14 06:25] LABS: Hematocrit 29.2 % (40-54); Hemoglobin 9.4 g/dL (13.0-16.5); Mean Corp Hgb Conc 32.2 g/dL (32-36); Mean Corpuscular Hgb 27.9 pg (27.0-32.0); Mean Corpuscular Volume 86.6 fL (80-94); Mean Platelet Vol. 9.2 fl (6.2-12.0); Platelet Count 251 K/mm3 (150-450); RBC Distribution Width CV 13.3 % (11.6-14.6); RBC Distribution Width SD 42.2 fl (35.1-43.9); Red Blood Count 3.37 M/mm3 (4.6-6.2); White Blood Count 9.8 K/mm3 (4.4-11.0)
[2021-03-14 06:51] LABS: Anion Gap 6 (5-15); BUN 26 mg/dL (7-18); BUN/Creat Ratio 23.9 RATIO (10-20); Calcium,Total 8.3 mg/dL (8.5-10.1); Chloride 102 mmol/L (98-107); Creatinine, Serum 1.09 mg/dL (0.70-1.30); EST Glomerular Filtration Rate 69 mL/min (>60); Est Glom Filt Rate - Afr Amer 84 mL/min (>60); Estimated Creatinine Clearance 68.57 ml/min; Glucose 145 mg/dL (74-106); Potassium 4.3 mmol/L (3.5-5.1); Sodium Level 133 mmol/L (136-145)
--- NOTE | 2021-03-14 07:33 | PCM.PN.ORT ---
Subjective Subjective Patient states pain is been very well managed. Patient denies chest pain, shortness of breath, calf pain, nausea vomiting.Patient sitting at bedside. Patient has no other complaints at this time. Patient states he is ready for discharge home. Objective Data Objective Data Vital Signs: Vital Signs Temp Pulse Resp BP Pulse Ox 99.1 F 78 18 92/57 L 95 03/14/21 04:43 03/14/21 04:43 03/14/21 04:43 03/14/21 04:43 03/14/21 04:43 Oxygen Flow Rate (L/min) 4 Oxygen Delivery Method Room Air Weight: 103.419 kg Body Mass Index (BMI) 27.7 Intake & Output: Intake and Output for Last 24 Hours 03/12/21 03/13/21 03/14/21 23:59 23:59 23:59 Intake Total 1266.5 / 2066.5 2450 / 2450 Output Total 350 / 350 Balance 1266.5 / 1716.5 2100 / 2100 Lab / Micro Data Result Diagrams: 03/14/21 05:40 03/14/21 05:40 Labs: Laboratory Results - last 24 hr 03/13/21 09:55: POC Glucose 88 03/14/21 05:40: WBC 9.8, RBC 3.37 L, Hgb 9.4 L, Hct 29.2 L, MCV 86.6, MCH 27.9, MCHC 32.2, RDW Std Deviation 42.2, RDW Coeff of Megan 13.3, Plt Count 251, MPV 9.2 03/14/21 05:40: Sodium 133 L, Potassium 4.3, Chloride 102, Carbon Dioxide 25.0, Anion Gap 6, BUN 26 H, Creatinine 1.09, Estim Creat Clear Calc 68.57, Est GFR (MDRD) Af Amer 84, Est GFR (MDRD) Non-Af 69, BUN/Creatinine Ratio 23.9 H, Glucose 145 H, Calcium 8.3 L Micro: Microbiology 02/23/21 10:23 Swab (Method) Nasal Screen MRSA/MSSA - Final Radiography Diagnostic Testing: Radiology Impression Knee X-Ray 03/13/21 14:45 IMPRESSION: Status post total knee replacement. There is good alignment. Postoperative soft tissue changes. Electronically Signed: Ranjeet Ley MD at 15:28 EST , Service support , Physical Exam Narrative Patient sitting comfortably in the exam chair. Patient in no respiratory distress speaking is full sentences. Patient has full range of motion of the upper extremities without limitations. Dressing is clean dry intact. Patient has no calf pain negative signs and symptoms of DVT. Neurovascular is otherwise intact. Vital signs labs were all reviewed noted medical record. Const alert and oriented x3 Eyes PERRL Neuro CN's II-XII intact bilaterally Assessment & Plan Assessment/Plan (1) S/P total knee arthroplasty: QUALIFIERS: Laterality: right Qualified Code(s): Z96.651 - Presence of right artificial knee joint PLAN: 1. Continue all pain medications as prescribed 2. Restart Eliquis as prescribed preoperatively for postop DVT prophylaxis 3. Continue physical therapy today 4. Continue outpatient physical therapy at [facility] 5. Discharge home today after p.m. therapy 6. Encourage incentive spirometry 7. Follow-up as scheduled, see pink sheet
--- NOTE | 2021-03-14 07:37 | EX.PCM.DISCH ---
Discharge Instructions Diet Discharge Diet: No restrictions Activity Discharge Activity: May Not Drive, May Shower and Use Walker May shower in (days): 3 May resume sexual activity in: No Restrictions Ice area for (Minutes): 30 (every hour while awake.) Weight Bearing Status: Weight bearing as tolerated Keep extremity elevated above heart level: Operative Extremity Dressing / Incision Call your doctor if your incision/area has: Continuous Slow Oozing, Sudden Increased Bleeding, Increased Pain/ Swelling, Increased Redness and Foul Smelling Discharge Call your doctor if you observe: Fever of 101 or Higher, Coldness, Increased Pain, Numbness or Tingling, Change in Color, Shortness of breath, Calf discomfort and Uncontrolled pain Change Dressing in: leave in place till F/U Remove Dressing in: leave in place till F/U Follow Up Care Please Follow Up With: Antoni Diana, PARamila When: Please call [phone] to schedule a follow up appointment. Test Results: Test results from this visit will be discussed in further detail at your follow-up appointment, if applicable. Discharge Plan Admission Admit Date/Time: 03/13/21 18:37 Primary Reason for Your Visit: Right total knee arthroplasty Attending Provider: Ld Estrada Primary Care Provider: Isaak Cruz Consulting Providers: Antoni Diana Discharge Orders/Prescriptions Prescriptions: New acetaminophen 500 mg Tablet 1,000 mg PO Q8 Qty: 90 RF: 0 oxycodone 5 mg Tablet 5 - 10 mg PO Q4H PRN PRN (Reason: Pain Score 4-10) 7 Days Qty: 84 RF: 0 Continued multivitamin [Daily Multi-Vitamin] tablet 1 tab PO DAILY RF: 0 tamsulosin [Flomax] 0.4 mg capsule 0.4 mg PO DAILY RF: 0 cholecalciferol (vitamin D3) 1,250 mcg (50,000 unit) capsule 1,000 mcg PO DAILY RF: 0 Eliquis 5 mg tablet 5 mg PO BID RF: 0 sertraline 25 mg tablet 25 mg PO DAILY RF: 0 Red Huerta 1 packet PO/SL DAILY RF: 0 acetaminophen 500 mg Tablet 1,000 mg PO Q8 MDD 3000 mg daily Qty: 90 RF: 0 metoprolol succinate 25 mg tablet extended release 24 hr 25 mg PO DAILY Qty: 90 RF: 6 Referrals / Follow Up: Cruz,Isaak, MD [Primary Care Provider] - Disposition Disposition (needs filled in before D/C Order can be placed): Home, Self Care
[2021-03-14 10:16] VITALS: PULSE 86
[2021-03-14] MEDS: Senna/Docusate Sodium 1 Tablet 2 TABLET PO (10:16)
[2021-03-14] MEDS: Tamsulosin HCl 0.4 MG Capsule PO (10:16)
[2021-03-14] MEDS: Aspirin 81 MG TAB.CHEW PO (10:16)
[2021-03-14] MEDS: APIXABAN 5 MG TABLET PO (10:16)
[2021-03-14] MEDS: Metoprolol(XL)Succ 25 MG Tablet PO (10:16)
[2021-03-14] MEDS: Sertraline 50 MG Tablet 25 MG PO (10:17)
[2021-03-14 10:20] VITALS: BP 102/65; PULSE 82; RESP 16; TEMP 37.2; O2SAT 99
--- NOTE | 2021-03-14 12:00 | CASEMGMT ---
RN CM BRIDGE MECHANIC CM to room to meet with patient for initial transition planning/care coordination assessment. DEBBIE ZAPATA introduced self and role at [facility]. Pt voices understanding and consents to assessment at this time. Pt resting in bed in no distress at this time. Pt is A/O at this time and answers all questions appropriately. Care providers, pharmacy, and demographics verified/updated at this time. PCP: Dr Cruz Specialists: Dr Estrada-ortho, Dr Jack-cardio Preferred Pharmacy: [facility] Retail Insurance: MCR, [employer] Prescription Benefit: Yes Living Will/HPOA: States does not have LW or HCPOA . Interested in more information but states does not want to talk with SW at this time to complete paperwork. Provided information on advanced directives and given Social Service rac card with number to call if chooses in the future to utilize [facility] social work for advanced directive completion. LNOK: SonMarcelo. Has 2 other adult children Living Arrangements: Lives alone in 3-story home. FFSU. 1 step to enter. Independent prior to surgery. Has friends and family who can help as needed. Transportation: Pt states drives self and states no transportation concerns at this time. Friends and family able to help DME: States has the following DME: cane, walker, sock aide Pt states no need for further DME at this time. HHC/SNF: No hx of either. Has f/u appt @ [facility] 03/17 for therapy. Pt wishes to return home and states has no concerns with going home at time of discharge. CM to follow for any discharge planning/needs. Pt voices no concerns/needs at this time. Advised pt to ask for CM if any questions/concerns/needs arise. Voices understanding. PLAN: Home w/OP therapy @ [facility]. Reuben WORKMAN RN, CM
--- NOTE | 2021-03-14 14:04 | PHA.DC.MR ---
Pharmacy Service has performed discharge medication reconciliation for this patient. The patient's discharge medication list was reviewed for discrepancies and discrepancies were resolved. 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 Home Medications multivitamin 1 tab PO DAILY 06/17/18 tamsulosin 0.4 mg capsule 0.4 mg PO DAILY 06/18/19 metoprolol succinate 25 mg tablet,extended release 24 hr 25 mg PO DAILY #90 tab 04/20/20 apixaban 5 mg tablet 5 mg PO BID 05/17/20 sertraline 25 mg tablet 25 mg PO DAILY 05/17/20 cholecalciferol (vitamin D3) 1,250 mcg (50,000 unit) capsule 1,000 mcg PO DAILY cap 09/13/20 Red Huerta 1 packet PO/SL DAILY 12/22/20 acetaminophen 1,000 mg PO Q8 #90 tab 03/14/21 oxycodone 5 - 10 mg PO Q4H PRN PRN 7 Days #84 tab 03/14/21
[2021-03-14 14:32] VITALS: BP 105/92; PULSE 68; RESP 16; TEMP 37; O2SAT 100
== END 2021-03-14 14:40 | disposition home or self-care (01) ==
LOC: MS3 03-14 07:13 → SDC 03-14 09:14 → MS3 03-14 09:14
PROVIDERS: Admitting Provider Orthopaedic Surgery; PCP Family Medicine; Referring Provider Orthopaedic Surgery; Visit Provider Orthopaedic Surgery
PROC: 0SRC0JZ Replacement of Right Knee Joint with Synthetic Substitute, Open Approach (ICD-10-PCS; CPT 27447; principal; 2021-03-13 12:45)
DX: M17.11 Unilateral primary osteoarthritis, right knee (principal); I48.0 Paroxysmal atrial fibrillation; E78.5 Hyperlipidemia, unspecified; I25.10 Atherosclerotic heart disease of native coronary artery without angina pectoris; F32.9 Major depressive disorder, single episode, unspecified; Z79.899 Other long term (current) drug therapy; Z79.01 Long term (current) use of anticoagulants; Z86.718 Personal history of other venous thrombosis and embolism; Z87.891 Personal history of nicotine dependence
CPT/HCPCS: 01402; 27447; S2900; 36415; 73560; 80048; 82962; 83036; 85027; 87081; 88305; 88311; 96365; 96366; 97110; 97116; 97162; 97166; 97530; 97535; 99218; 99251; C1776; J7120; G0378; G0463; J2405

== ENCOUNTER → 2021-10-20 | Outpatient (CLI) | payer MEDICARE, OTHER, SELFPAY ==
[2021-10-20 12:21] LABS: Anion Gap 5 (5-15); BUN 25 mg/dL (7-18); BUN/Creat Ratio 24.3 RATIO (10-20); Calcium,Total 9.2 mg/dL (8.5-10.1); Chloride 106 mmol/L (98-107); Cholesterol 207 mg/dL (200); Creatinine, Serum 1.03 mg/dL (0.70-1.30); EST Glomerular Filtration Rate 74 mL/min (>60); Est Glom Filt Rate - Afr Amer 90 mL/min (>60); Glucose 106 mg/dL (74-106); High Density Lipoprotein 49 mg/dL; PSA,Total - Annual Screen 2.65 ng/mL (0.00-4.00); Potassium 4.2 mmol/L (3.5-5.1); Sodium Level 140 mmol/L (136-145); Triglycerides 135 mg/dL; Very Low Density Lipoprotein 27 mg/dL (5-40)
== END | disposition home or self-care (01) ==
LOC: MFPLAB 10:39
PROVIDERS: PCP Family Medicine; Referring Provider Family Medicine; Visit Provider Family Medicine
DX: Z00.00 Encounter for general adult medical examination without abnormal findings (principal); Z12.5 Encounter for screening for malignant neoplasm of prostate; E78.5 Hyperlipidemia, unspecified
CPT/HCPCS: 36415; 80048; 80061; 84153; G0103

== ENCOUNTER → 2022-11-22 | Outpatient (CLI) | payer MEDICARE, OTHER, SELFPAY ==
[2022-11-22 12:34] LABS: Anion Gap 6 (5-15); BUN 26 mg/dL (7-18); BUN/Creat Ratio 25.5 RATIO (10-20); Calcium,Total 9.3 mg/dL (8.5-10.1); Chloride 107 mmol/L (98-107); Cholesterol 223 mg/dL (200); Creatinine, Serum 1.02 mg/dL (0.70-1.30); EST Glomerular Filtration Rate 75 mL/min (>60); Est Glom Filt Rate - Afr Amer 90 mL/min (>60); Glucose 101 mg/dL (74-106); High Density Lipoprotein 54 mg/dL; PSA,Total - Annual Screen 3.06 ng/mL (0.00-4.00); Sodium Level 140 mmol/L (136-145); Thyroid Stim Hormone (TSH) 2.24 uIU/mL (0.358-3.74); Triglycerides 164 mg/dL; Very Low Density Lipoprotein 33 mg/dL (5-40)
== END | disposition home or self-care (01) ==
LOC: MTLAB 10:08
PROVIDERS: PCP Family Medicine; Visit Provider Family Medicine
DX: Z00.00 Encounter for general adult medical examination without abnormal findings (principal); Z12.5 Encounter for screening for malignant neoplasm of prostate; E78.5 Hyperlipidemia, unspecified
CPT/HCPCS: 36415; 80048; 80061; 84153; 84443; G0103

== ENCOUNTER → 2023-01-29 | Outpatient (CLI) | payer MEDICARE, OTHER, SELFPAY ==
--- NOTE | 2023-01-29 16:28 | STRESSREP ---
Stress Test Report Exercise myocardial perfusion stress test. 82-year-old man with a history of shortness of breath and atrial fibrillation Stress protocol: Resting EKG demonstrates atrial fibrillation with a rate of 71 bpm resting blood pressure is 132/84 mmHg. The patient exercised according to the regular Morgan protocol for a total duration of 5 minutes attaining a maximum heart rate of 115 bpm which was 82% of maximum predicted heart rate; the maximum workload was 7 metabolic equivalents. At rest there were no ST or T wave changes noted to suggest ischemia and at peak exercise upsloping ST changes only were noted which did not meet the criteria for ischemia. No clinical angina was noted the test was terminated due to the target heart rate being achieved/fatigue. The peak blood pressure was 140/84 mmHg. Rate-pressure product was 12,000. Myocardial perfusion protocol. 13.6 mCi of technetium 99m sestamibi was injected at rest. The patient exercised according to regular Morgan protocol for total duration of 5 minutes and at peak exercise 43.4 mCi of technetium 99m sestamibi was injected stress images were obtained stress and rest images were reconstructed in comparing the short axis vertical long and horizontal long axis. Gated images were also obtained. Perfusion SPECT analysis: Review of the stress images demonstrate normal uptake of tracer noted in all areas of the myocardium. The resting images similarly demonstrate normal uptake of tracer noted in all areas of the myocardium. No areas of reversibility are noted to suggest ischemia no previous infarct was noted. Gated SPECT analysis: The gated ejection fraction is 58%. Conclusion: Normal exercise myocardial perfusion stress test at a moderate workload Preserved ejection fraction.
== END | disposition home or self-care (01) ==
LOC: CVS 06:14
PROVIDERS: PCP Family Medicine; Referring Provider Family Medicine; Visit Provider Family Medicine
DX: R06.02 Shortness of breath (principal)
CPT/HCPCS: 78452; 93017; A9500; A4216

== ENCOUNTER → 2023-02-22 | Outpatient (CLI) | payer MEDICARE, OTHER, SELFPAY ==
[2023-02-22 10:41] LABS: ALB/GLOB Ratio 0.9 RATIO (0.9-2.4); AST(SGOT) 17 U/L (15-37); Alanine Aminotransfer ALT/SGPT 30 U/L (16-61); Albumin, Serum 3.4 g/dL (3.2-5.0); Alkaline Phosphatase 102 U/L (45-117); Anion Gap 5 (5-15); BUN 33 mg/dL (7-18); BUN/Creat Ratio 26.6 RATIO (10-20); Calcium,Total 8.9 mg/dL (8.5-10.1); Chloride 106 mmol/L (98-107); Cholesterol 207 mg/dL (200); Creatinine, Serum 1.24 mg/dL (0.70-1.30); EST Glomerular Filtration Rate 60 mL/min (>60); Est Glom Filt Rate - Afr Amer 72 mL/min (>60); Globulin 3.7 g/dL (2.2-4.2); Glucose 97 mg/dL (74-106); High Density Lipoprotein 45 mg/dL; Potassium 4.4 mmol/L (3.5-5.1); Protein, Total 7.1 g/dL (6.4-8.2); Sodium Level 138 mmol/L (136-145); Triglycerides 178 mg/dL; Very Low Density Lipoprotein 36 mg/dL (5-40)
== END | disposition home or self-care (01) ==
LOC: MFPLAB 08:49
PROVIDERS: PCP Family Medicine; Visit Provider Family Medicine
DX: E78.5 Hyperlipidemia, unspecified (principal)
CPT/HCPCS: 36415; 80053; 80061

== ENCOUNTER → 2023-05-23 | Outpatient (CLI) | payer MEDICARE, OTHER, SELFPAY ==
[2023-05-23 11:00] LABS: AST(SGOT) 30 U/L (15-37); Alanine Aminotransfer ALT/SGPT 30 U/L (16-61); Albumin, Serum 3.7 g/dL (3.2-5.0); Alkaline Phosphatase 102 U/L (45-117); Anion Gap 4 (5-15); BUN 29 mg/dL (7-18); BUN/Creat Ratio 30.3 RATIO (10-20); Calcium,Total 9.7 mg/dL (8.5-10.1); Chloride 109 mmol/L (98-107); Cholesterol 232 mg/dL (200); Creatinine, Serum 0.96 mg/dL (0.70-1.30); EST Glomerular Filtration Rate 80 mL/min (>60); Est Glom Filt Rate - Afr Amer 97 mL/min (>60); Globulin 3.6 g/dL (2.2-4.2); Glucose 109 mg/dL (74-106); High Density Lipoprotein 48 mg/dL; Potassium 4.7 mmol/L (3.5-5.1); Protein, Total 7.3 g/dL (6.4-8.2); Sodium Level 141 mmol/L (136-145); Triglycerides 123 mg/dL; Very Low Density Lipoprotein 25 mg/dL (5-40)
== END | disposition home or self-care (01) ==
LOC: MFPLAB 09:01
PROVIDERS: PCP Family Medicine; Visit Provider Family Medicine
DX: E78.5 Hyperlipidemia, unspecified (principal)
CPT/HCPCS: 36415; 80053; 80061

== ENCOUNTER → 2023-05-27 | Outpatient (CLI) | payer MEDICARE, OTHER, SELFPAY ==
[2023-05-27 10:30] LABS: Absolute Lymphocyte Count 1.98 X10^3/uL (0.83-4.51); Absolute Neutrophil Count 4.7 X10^3/uL (2.0-7.7); Basophil# 0.05 X10^3/uL; Basophil% 0.7 % (0-1); Eosinophil# 0.17 X10^3/uL; Eosinophils% 2.2 % (0-5); Hematocrit 43.9 % (40-54); Lymphocyte # 1.98 X10^3/ul (0.83-4.51); Lymphocyte % 26.1 % (19-41); Mean Corp Hgb Conc 31.9 g/dL (32-36); Mean Corpuscular Hgb 28.1 pg (27.0-32.0); Mean Corpuscular Volume 88.2 fL (80-94); Monocyte# 0.71 X10^3/uL; Monocyte% 9.3 % (0-10); NRBC Flagged by Analyzer 0 % (0-5); Neutrophil # 4.68 X10^3/uL (2.7-7.7); Neutrophil % 61.6 % (47-70); Platelet Count 258 K/mm3 (150-450); RBC Distribution Width CV 13.1 % (11.6-14.6); RBC Distribution Width SD 41.9 fl (35.1-43.9); Red Blood Count 4.98 M/mm3 (4.6-6.2); White Blood Count 7.6 K/mm3 (4.4-11.0)
== END | disposition home or self-care (01) ==
LOC: LAB 09:06
PROVIDERS: PCP Family Medicine; Visit Provider Physician Assistant Medical
DX: I48.11 Longstanding persistent atrial fibrillation (principal)
CPT/HCPCS: 36415; 85025

== ENCOUNTER → 2023-11-20 | Outpatient (CLI) | payer MEDICARE, OTHER, SELFPAY ==
[2023-11-20 10:11] LABS: Absolute Lymphocyte Count 1.95 X10^3/uL (0.83-4.51); Absolute Neutrophil Count 3.1 X10^3/uL (2.0-7.7); Basophil# 0.06 X10^3/uL; Eosinophil# 0.27 X10^3/uL; Eosinophils% 4.5 % (0-5); Hematocrit 42.1 % (40-54); Hemoglobin 13.8 g/dL (13.0-16.5); Lymphocyte # 1.95 X10^3/ul (0.83-4.51); Lymphocyte % 32.6 % (19-41); Mean Corp Hgb Conc 32.8 g/dL (32-36); Mean Corpuscular Volume 88.4 fL (80-94); Mean Platelet Vol. 9.7 fl (6.2-12.0); Monocyte# 0.57 X10^3/uL; Monocyte% 9.5 % (0-10); NRBC Flagged by Analyzer 0 % (0-5); Neutrophil # 3.12 X10^3/uL (2.7-7.7); Neutrophil % 52.1 % (47-70); Platelet Count 243 K/mm3 (150-450); RBC Distribution Width CV 12.6 % (11.6-14.6); RBC Distribution Width SD 40.8 fl (35.1-43.9); Red Blood Count 4.76 M/mm3 (4.6-6.2)
[2023-11-20 10:35] LABS: AST(SGOT) 25 U/L (15-37); Alanine Aminotransfer ALT/SGPT 31 U/L (16-61); Albumin, Serum 3.6 g/dL (3.2-5.0); Alkaline Phosphatase 103 U/L (45-117); Anion Gap 4 (5-15); BUN 24 mg/dL (7-18); BUN/Creat Ratio 24.9 RATIO (10-20); Calcium,Total 9.2 mg/dL (8.5-10.1); Chloride 106 mmol/L (98-107); Cholesterol 172 mg/dL (200); Creatinine, Serum 0.96 mg/dL (0.70-1.30); EST Glomerular Filtration Rate 79 mL/min (>60); Est Glom Filt Rate - Afr Amer 96 mL/min (>60); Globulin 3.5 g/dL (2.2-4.2); Glucose 107 mg/dL (74-106); High Density Lipoprotein 45 mg/dL; Potassium 4.5 mmol/L (3.5-5.1); Protein, Total 7.1 g/dL (6.4-8.2); Sodium Level 138 mmol/L (136-145); Triglycerides 121 mg/dL; Very Low Density Lipoprotein 24 mg/dL (5-40)
== END | disposition home or self-care (01) ==
LOC: MFPLAB 08:32
PROVIDERS: PCP Family Medicine; Visit Provider Family Medicine
DX: Z01.818 Encounter for other preprocedural examination (principal); E78.5 Hyperlipidemia, unspecified
CPT/HCPCS: 36415; 80053; 80061; 85025

== ENCOUNTER 2024-02-06 07:34 | Observation (INO) | payer MEDICARE, OTHER, SELFPAY ==
--- NOTE | 2024-01-22 07:20 | RAD_ITS ---
EXAM: XR CHEST, 2 VIEWS CLINICAL INDICATION: PRE-OP TECHNIQUE: Frontal and lateral views of the chest. COMPARISON: Two-view chest 12/26/2020 FINDINGS: LUNGS AND PLEURAL SPACES: Unremarkable. No consolidation or edema. No pneumothorax. No effusion. HEART: Unremarkable. Cardiac silhouette not enlarged. MEDIASTINUM: Central airways and mediastinal contour are unremarkable. BONES/JOINTS: Degenerative changes of the spine. No acute fracture. SOFT TISSUES: Unremarkable. VASCULATURE: Ectasia of the thoracic aorta. TUBES, LINES AND DEVICES: Leads extending into the thoracic spinal canal. RAD/Chest PA and Lateral IMPRESSION: No acute findings in the chest. Electronically Signed: Khanh Cruz MD at 7:54 EDT ,
[2024-01-22 08:13] LABS: Absolute Lymphocyte Count 1.58 X10^3/uL (0.83-4.51); Absolute Neutrophil Count 3.3 X10^3/uL (2.0-7.7); Basophil# 0.04 X10^3/uL; Basophil% 0.7 % (0-1); Eosinophil# 0.17 X10^3/uL; Hematocrit 41.8 % (40-54); Hemoglobin 13.7 g/dL (13.0-16.5); Lymphocyte # 1.58 X10^3/ul (0.83-4.51); Lymphocyte % 28.1 % (19-41); Mean Corp Hgb Conc 32.8 g/dL (32-36); Mean Corpuscular Hgb 29.3 pg (27.0-32.0); Mean Corpuscular Volume 89.5 fL (80-94); Mean Platelet Vol. 9.7 fl (6.2-12.0); Monocyte# 0.51 X10^3/uL; Monocyte% 9.1 % (0-10); NRBC Flagged by Analyzer 0 % (0-5); Neutrophil # 3.31 X10^3/uL (2.7-7.7); Neutrophil % 58.9 % (47-70); Platelet Count 239 K/mm3 (150-450); RBC Distribution Width CV 12.8 % (11.6-14.6); RBC Distribution Width SD 41.8 fl (35.1-43.9); Red Blood Count 4.67 M/mm3 (4.6-6.2); White Blood Count 5.6 K/mm3 (4.4-11.0)
[2024-01-22 09:07] LABS: Anion Gap 4 (5-15); BUN 19 mg/dL (7-18); BUN/Creat Ratio 20.7 RATIO (10-20); Calcium,Total 9.3 mg/dL (8.5-10.1); Chloride 107 mmol/L (98-107); Creatinine, Serum 0.92 mg/dL (0.70-1.30); EST Glomerular Filtration Rate 84 mL/min (>60); Est Glom Filt Rate - Afr Amer 102 mL/min (>60); Glucose 110 mg/dL (74-106); Potassium 4.1 mmol/L (3.5-5.1); Sodium Level 140 mmol/L (136-145)
[2024-01-22 09:09] LABS: Partial Thromboplast Time 30.5 Seconds (24.1-36.2)
[2024-01-22 09:24] LABS: International Normalized Ratio 1.2; Prothrombin Time (Protime)PT. 15.2 SECONDS (11.7-14.9)
[2024-02-06] VITALS (15 sets, daily range): BP systolic 92–147; BP diastolic 63–90; PULSE 60–79; RESP 14–18; TEMP 35.8–36.8; O2SAT 96–100; BMI 27.1
[2024-02-06] MEDS: Lactated Ringers 1,000 ML 15 ML IV (06:28)
--- NOTE | 2024-02-06 06:30 | RAD_ITS ---
PROCEDURE: Fluoroscopic services provided for implantation of spinal cord similar DATE OF EXAMINATION: February 06, 2024. INDICATION: Male, 83 years old. Chronic back pain. FLUOROSCOPY TIME (if supplied): (34 seconds) minutes/seconds. 10.91 mGy. 4 images were submitted. RAD/Thoracic Spine 2 Views IMPRESSION: Intraoperative fluoroscopic services provided for implantation of a spinal cord stimulator device. Electronically Signed: Ranjeet Ley MD at 10:00 EDT ,
--- NOTE | 2024-02-06 06:49 | PCM.PRE.AN2 ---
ASA Classification* ASA Classification ASA Classification: 2 Assessment & Plan Anesthesia* Anesthesia Assessment Anesthesia Assessment: Discussed sedation and/or anesthesia options, risks, benefits, and alternatives with patient/parents/legal guardian/POA. Questions invited. The patient/parents/legal guardian/POA seems to understand and agrees to proceed with anesthesia plan. Reviewed the physical assessment, medical history, allergy history and patient home medications list prior to surgery/procedure/anesthetic and documented any changes. Performed airway and anesthesia risk assessments. Anesthesia Type Anesthesia Type: General Anesthesia Focused Assessment* Temperature: 97.3 F Pulse Rate: 69 Blood Pressure: 92/65 Respiratory Rate: 16 Pulse Ox: 98 Airway Assessment Mouth opens: >3 cm Mallampati Score: II Focused Labs Anesthesia Preop lab: CBC WBC 5.6 K/mm3 (4.4-11.0) 01/22/24 07:32 RBC 4.67 M/mm3 (4.6-6.2) 01/22/24 07:32 Hgb 13.7 g/dL (13.0-16.5) 01/22/24 07:32 Hct 41.8 % (40-54) 01/22/24 07:32 Plt Count 239 K/mm3 (150-450) 01/22/24 07:32 CHEMISTRY Potassium 4.1 mmol/L (3.5-5.1) 01/22/24 07:32 Sodium 140 mmol/L (136-145) 01/22/24 07:32 Magnesium 2.3 mg/dL (1.6-2.6) 12/26/20 08:33 BUN 19 mg/dL (7-18) H 01/22/24 07:32 Creatinine 0.92 mg/dL (0.70-1.30) 01/22/24 07:32 Glucose 110 mg/dL (74-106) H 01/22/24 07:32 POC Glucose 88 mg/dL (70-110) 03/13/21 09:55 TSH 2.24 uIU/mL (0.358-3.74) 11/22/22 10:09 COAG PT 15.2 SECONDS (11.7-14.9) H 01/22/24 07:32 Pre-Assessment Diagnosis/Proposed Procedure Planned Operative Procedure(s): Hardware Removal of Spinal Cord Stimulator Leads, Thoracic 9 - Thoracic 10 Laminectomy, Implantation of Permanent Spinal Cord Stimulator Leads Anesthesia History Anesthesia History - clinical field specialist: Anesthesia History - clinical field specialist Hx Hospitalization No 01/15/24 09:11 Any Problems With Anesthesia No 01/15/24 09:11 Cholinesterase deficiency No 01/15/24 09:11 You/Your Family Experience No 01/15/24 09:11 fever (hyperthermia) with Relationship Recent Exposure to Contagious No 02/06/24 06:23 Disease Does patient have nerve No 01/15/24 09:11 stimulator Patient instructed to have device shut off --Does patient have Pacemaker No 02/06/24 06:23 or ICD? When Was Last Pacemaker Check QUESTION #4 FULL TEXT: You/Your Family Experience fever (hyperthermia) with Anesthesia Last Oral Intake Last Oral intake: Last Oral Intake NPO since 22:00 02/06/24 06:23 Meds taken in AM with sips of Yes 02/06/24 06:23 water? Meds patient instructed to METOPROLOL 02/06/24 06:23 take am of surgery PONV PONV - clinical field specialist: PONV - clinical field specialist Female No 01/15/24 09:11 HX of Motion Sickness No 01/15/24 09:11 HX of N/V After Surgery No 01/15/24 09:11 Non-Smoker Yes 01/15/24 09:11 Duration of Surgery greater Yes 01/15/24 09:11 than 60 minutes Number of Risk Factors 2 01/15/24 09:11 PONV Score Moderate Risk 01/15/24 09:11 Height & Weight Height & Weight: Anesthesia: Height & Weight Height 6 ft 4 in 02/06/24 06:23 Weight: 101 kg 02/06/24 06:23 Body Mass Index (BMI) 27.1 02/06/24 06:23 Respiratory Assessment Respiratory Assessment - clinical field specialist: Respiratory Tract Infection Hx - clinical field specialist Hx Respiratory Tract Infection No 01/15/24 09:11 STOP Sleep Apnea STOP Sleep Apnea - clinical field specialist: STOP Sleep Apnea - clinical field specialist Hx Hypertension No 01/15/24 09:11 Hx Sleep Apnea No 01/15/24 09:11 CPAP No 01/15/24 09:11 BIPAP No 01/15/24 09:11 Do you snore loudly (louder No 01/15/24 09:11 than talking or can be heard Do you often feel tired/ No 01/15/24 09:11 fatigued/ sleepy during daytime? Has anyone observed you stop No 01/15/24 09:11 breathing during sleep? STOP Results Negative 01/15/24 09:11 QUESTION #5 FULL TEXT : Do you snore loudly (louder than talking or can be heard through closed doors)? 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 Specify any problems Hx of Preganancy in last 3 N/A 01/15/24 09:11 Months Nurse Filling Out Transfusion VCHRISTIN 01/15/24 09:11 & Questions: Date: 01/15/24 01/15/24 09:11 Time: 09:13 01/15/24 09:11 Patient unable to answer at this time (ie. confused, unrespo /Reproduction History /Reproductive History - clinical field specialist: /Reproductive Hx- clinical field specialist Hx Now No 01/15/24 09:11 Gestational Age (in weeks): EDC: Hx Hx Para Hx Section SAB No 01/15/24 09:11 Active Medications Active Medications: Current Medications Generic Name Dose Route Start Last Admin Trade Name Freq PRN Reason Stop Dose Admin Cefazolin Sodium 2 gm/ N/A 20 mls @ 400 mls/hr 02/06/24 07:30 IV 02/06/24 07:32 PREOP ONE Lactated Ringer's 1,000 mls @ 15 mls/hr 02/06/24 06:00 02/06/24 06:28 IV 02/11/24 19:19 15 mls/hr .Q48H SHEREE Administration Protocol PFSH Medical History Wears hearing aid Wears partial dentures Wears dentures Wears glasses History of stress test Cardiology follow-up encounter Loss of hearing Depression Arthritis Back pain Former smoker Exertional chest pain Lack of stamina Obesity Nonobstructive atherosclerosis of coronary artery Paroxysmal atrial fibrillation Hyperlipidemia Home Medications ?Medication ?Instructions ?Recorded ?Last Taken ?Type multivitamin (Daily Multi-Vitamin 1 tab PO DAILY 06/17/18 02/05/24 History tablet) tamsulosin 0.4 mg capsule (Flomax) 0.4 mg PO DAILY 06/18/19 02/05/24 History apixaban 5 mg tablet (Eliquis) 5 mg PO BID 05/17/20 01/29/24 History metoprolol succinate 25 mg 25 mg PO DAILY #90 tabs 05/24/23 02/06/24 Rx tablet,extended release 24 hr cholecalciferol (vitamin D3) 25 25 mcg PO DAILY 01/15/24 02/05/24 History mcg (1,000 unit) tablet (Vitamin D3) donepezil 10 mg tablet 10 mg PO DAILY 01/15/24 02/05/24 History duloxetine 30 mg capsule,delayed 30 mg PO DAILY 01/15/24 02/05/24 History release Allergy/AdvReac Type Severity Reaction Status Date / Time No Known Allergies Allergy Verified 02/06/24 06:07 Family History Father Heart disease chf Brother Heart disease atrial fib Surgical History Spinal cord stimulator status (05/16/22) History of arthroplasty of right knee Hx of total knee replacement Hx of colonoscopy History of cardioversion (06/06/20) History of left heart catheterization (07/29/15) Social History Smoking Status: Former smoker how long ago did patient quit smokin years ago alcohol intake: never substance use type: does not use caffeine: Yes Type: coffee Number of servings: 7 Review of Systems (Anesthesia) ROS Narrative System reviewed and no additional complaints, except as documented.
--- NOTE | 2024-02-06 07:16 | PCM.OPRPT ---
Operative Report (Standard) Operative Information Surgery/Procedure Performed: 1. Explantation of spinal cord stimulator percutaneous leads and generator/battery 2. T9-10 partial bilateral laminectomies. 3. Dorsal column stimulator paddle lead placement. 4. Implantation of new spinal cord stimulator generator/battery 5. Neuromonitoring bilateral upper and bilateral lower extremities 6. One hour of complex programming postoperatively. Surgeon: Romie Delgado Date of Procedure: 02/06/24 Procedure Start Time: 07:59 Procedure Stop Time: 09:48 Pre-Operative Diagnosis: 1. Lumbar stenosis, spondylosis. 2. Chronic back pain 3. 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 Lumbar stenosis, spondylosis 2. Chronic back pain 3. 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 The patient has opted for treatment of operative intervention, understanding the risks to include, damage to nerves, arteries and veins, possibility of continued pain, paralysis, need for additional surgery, pulmonary embolism, heart attack, stroke, or . DESCRIPTION OF PROCEDURE: The patient was identified in the preoperative holding area. There, the patient received the preoperative IV antibotics and then transferred to the operating suite. Once in the operating suite, after general endotracheal anesthesia was established, the patient was transferred to the [place] operating table in the prone position. All bony prominences were padded accordingly. The thoracolumbar spine was prepped and draped in standard surgical fashion. An incision was made over the previous spinal cord stimulator percutaneous leads in the right lumbar region and dissection was performed down to identify the implanted leads and anchors. The previous spinal cord stimulator generator/battery site located over the right posterior iliolumbar region was also reopened with a 15 blade scalpel and dissection was performed down to the level of the battery and the battery was exposed. The previous spinal cord stimulator percutaneous wires were then disconnected from the battery and removed. The previous spinal cord stimulator generator/battery was also explanted. An incision was made over the thoracolumbar spine. An incision was centered over the T9-10 interlaminar space, taken down to the thoracic fascia. It was then divided and subperiosteal dissection was taken down to the level of the facet joints. Partial bilateral laminectomies were performed at the T9-10 interspace, with part of the inferior lamina of T9, and superior lamina of T10. At this point the paddle lead was placed with the tip at the level of T8. It was then anchored to the fascia using standard anchors with silk suture. Wires from the stimulator were then passed subcutaneously with a passing device to the battery pocket and then connected to a new generator battery. All 3 incisions were then irrigated and closed with #1 vicryl for the fascia, 2-0 vicryl for subcutaneous, and 2-0 nylon for skin. Sterile dressing was applied with 4 x 4, ABD, and tape. Sponge, instrument, and needle counts were correct at the end of the case. Neurophysiologic monitoring was maintained at baseline throughout the duration of the case. The patient was extubated, taken to PACU without incident. Then one hour was spent with complex programming when the patient recovered Surgical Findings: See op report Nuclear Medicine Pet Ct Technologist psychologists: Yes Finish Mill Operator: Aldo Pena Tasks completed by patient assistant: Closing and Retracting Complications Complications: No Admit VTE Documentation VTE Present on Admission: No
--- NOTE | 2024-02-06 07:23 | PCM.PN.ORT ---
Subjective Subjective Seen and examined postop. Resting comfortably. Pain controlled. No complaints Objective Data Objective Data Vital Signs: Vital Signs Temp Pulse Resp BP Pulse Ox O2 Del Method 97.3 F L 69 16 92/65 98 Room Air 02/06/24 06:50 02/06/24 06:50 02/06/24 06:50 02/06/24 06:50 02/06/24 06:50 02/06/24 06:23 Oxygen Delivery Method Room Air Weight: 222 lb 10.67 oz Body Mass Index (BMI) 27.1 Lab / Micro Data 01/22/24 07:32 01/22/24 07:32 Micro: Microbiology 01/22/24 07:32 Swab (Method) Nasal Screen MRSA/MSSA - Final Physical Exam Const alert, oriented x3 and no apparent distress General Appearance: cooperative, comfortable and well kempt HEENT normocephalic and head/scalp atraumatic Eyes EOMs intact bilaterally and conjunctivae normal Neck full ROM General: normal visual inspection Chest inspection of chest normal and palpation of chest normal Resp normal respiratory effort and normal air movement Cardio regular rate, regular rhythm and peripheral pulses 2+ throughout GI soft to palpation, non-tender and non-distended Back/Spine Back/Spine Narrative: Dressings clean dry and intact Cervical Spine: cervical ROM normal Thoracic Spine / Upper Back: normal to inspection Lumbar Spine / Lower Back: normal to inspection Extremity normal to inspection, full ROM, normal capillary refill, no clubbing, cyanosis or edema and no calf tenderness Skin no rashes or lesions noted General Skin Exam: no breakdown Neuro oriented x3, CN's II-XII intact bilaterally, moves all extremities, no focal motor deficits, no sensory deficits noted and deep tendon reflexes 2+ bilaterally Motor Exam: strength 5/5 throughout and muscle tone normal throughout Assessment & Plan Assessment/Plan (1) Lumbar spondylosis: PLAN: Okay to admit See orders Discharge planning, likely home tomorrow
--- NOTE | 2024-02-06 07:25 | PCM.DC.SUM ---
Providers Date of Admission: 02/06/24 Primary Care Physician: Dr. Isaak Cruz MD Reason For Visit: Hardware Removal of Spinal Cord Sti Diagnosis Discharge Diagnosis (1) Lumbar spondylosis: Status: Acute Code(s): M47.816 - Spondylosis without myelopathy or radiculopathy, lumbar region Plan: Okay to admit See orders Discharge planning, likely home tomorrow Medications at Discharge Home Medications multivitamin (Daily Multi-Vitamin tablet) 1 tab PO DAILY 06/17/18 tamsulosin 0.4 mg capsule (Flomax) 0.4 mg PO DAILY 06/18/19 metoprolol succinate 25 mg tablet,extended release 24 hr 25 mg PO DAILY #90 tabs 05/24/23 cholecalciferol (vitamin D3) 25 mcg (1,000 unit) tablet (Vitamin D3) 25 mcg PO DAILY 01/15/24 donepezil 10 mg tablet 10 mg PO DAILY 01/15/24 duloxetine 30 mg capsule,delayed release 30 mg PO DAILY 01/15/24 hydrocodone-acetaminophen 5-325mg 5mg-325mg 1 tab PO Q6H 7 days #28 tabs 02/06/24 Hospital Course Operations - (Explantation of previous spinal cord stimulator leads and generator. T9-10 laminectomy with implantation of spinal cord stimulator lead and generator) Summary of Care Provided Minutes Spent on Discharge: 15 Hospital Course: The patient is an 83-year-old male who underwent explantation of previous nonfunctioning spinal cord stimulator leads and generator with implantation of new spinal cord stimulator lead and generator on 02/06/2024. He was subsequently admitted. The hospitalist was consulted for medical management. The patient progressed well. His pain was controlled and he was mobilizing well. No significant medical issues were reported. He was subsequently discharged home on 02/07/2024 to follow-up with Dr. Delgado in 3 weeks Physical Exam Const alert, oriented x3 and no apparent distress General Appearance: cooperative, comfortable and well kempt Neck full ROM General: normal visual inspection Resp normal respiratory effort and normal air movement Effort and Inspection: able to speak in complete sentences Cardio regular rate and peripheral pulses 2+ throughout GI soft to palpation, non-tender and non-distended Back/Spine Back/Spine Narrative: Dressings clean dry and intact. Incisions well-approximated with interrupted sutures in place Cervical Spine: cervical ROM normal Thoracic Spine / Upper Back: normal to inspection Lumbar Spine / Lower Back: normal to inspection Extremity normal to inspection, full ROM, normal capillary refill, no clubbing, cyanosis or edema and no calf tenderness Skin no rashes or lesions noted General Skin Exam: no breakdown Neuro oriented x3, CN's II-XII intact bilaterally, moves all extremities, no focal motor deficits, no sensory deficits noted and deep tendon reflexes 2+ bilaterally Motor Exam: strength 5/5 throughout and muscle tone normal throughout Weight / BMI Weight Weight: 222 lb 10.67 oz Body Mass Index (BMI) 27.1 ABG / Lab / Microbiology Data 01/22/24 07:32 01/22/24 07:32 Microbiology: Microbiology 01/22/24 07:32 Swab (Method) Nasal Screen MRSA/MSSA - Final D/C Instructions Discharge Diet: No restrictions Additional Activity Instructions: No repetitive bending twisting or lifting greater than 5 pounds. No reaching above head Call your doctor if your incision/area has: Continuous Slow Oozing, Sudden Increased Bleeding, Increased Pain/ Swelling, Increased Redness, Foul Smelling Discharge and Swelling at the incision site Call your doctor if you observe: Fever of 101 or Higher, Coldness, Increased Pain, Numbness or Tingling, Change in Color, Inability to urinate, Inability to have a bowel movement, Using more than 1 pad per hour, Shortness of breath, Dizziness, Fainting spells, Swelling in the ankles, Chest pain, Prolonged hiccupping, Increased palpitations (irregular heartbeat), Calf discomfort and Uncontrolled pain Additional Dressing/Incision Instructions: Change dressings daily with gauze and tape Additional Instructions: 1. During your procedure, you received sedation through your IV. Please follow these instructions for the next 24 hours: Do not drive a motor vehicle, do not drink any alcoholic beverages, and do not sign any legal documents or make personal or business decisions. A responsible adult should stay with you at least 6 hours after the procedure. 2. Keep your surgical site/incision clean and the dressing dry and intact. Change dressings daily with gauze and tape. You may use an ice pack at the surgical site to reduce any swelling or discomfort. 3. Monitor the incision site for any signs or symptoms of infection. Watch for redness, excessive swelling or drainage, or continued pain at the incision site after 3 days. Contact your physician immediately for a fever, chills or a temperature of 101.5? F or greater. 4. Take your medication exactly as prescribed by your physician. Do not attempt to wean yourself off any of your medications even though your pain is improving. This process needs to be carefully monitored by your doctor. Take any antibiotics prescribed exactly as directed and until they are gone. 5. Avoid stretching, bending, pulling, twisting or any sudden movements. Do not bend or twist at the waist. Do not raise your arms above your head; however, you may brush your hair or scratch your head, but nothing higher than that. Any movements higher than that could cause your electrode wires to move from their current position. No not lie on your stomach. Do not bend at the waist to put your shoes on; you must lift your legs up to do this. 6. No lifting greater than 5 pounds. Try to be careful. Any falls could dislodge the leads. 7. Do not operate a motor vehicle, equipment or a power tool while your stimulator is on. If you need to use any equipment, you must turn your stimulator off first. As a passenger in a motor vehicle, you may use your stimulator. 8. Do not have any manipulation done by a chiropractor or any other physician without first consulting with the physician who placed your spinal cord stimulator. 9. Without movement, you may note changes in the intensity of the stimulator. For example, you may notice a different stimulation when you are standing than when you are sitting or lying down. This is normal the first few weeks following the implant and will stabilize over time. 10. Please contact our office if you are even scheduled for a CT scan or an MRI. 11. Please call us if you have any questions, problems or concerns. Please Follow Up With: Romie Delgado, DO Meaningful Use Info Meaningful Use Meaningful Use Diagnoses (Choose all that apply): None applicable Ischemic Stroke Statin Dosing Therapy Reference: STATIN DOSE THERAPY REFERENCE: * Patients > 75 years receive moderate or high dose statin therapy. * Patients 75 years or YOUNGER should receive HIGH intensity statin dose unless contraindicated. You will be required to document reason for non-treatment if statin daily dose does not meet guidelines. HIGH DOSE STATIN THERAPY DAILY Atorvastatin > than or = to 40 mg Rosuvastatin > than or = to 20 mg Amlodipine + Atorvastatin > than or = to 2.5/40 mg Ezetimibe + Simvastatin 10/80 mg Simvastatin 80mg Discharge Plan Admission Admit Date/Time: 02/06/24 07:34 Attending Provider: Romie Delgado Primary Care Provider: Isaak Cruz Consulting Providers: Raymundo Dacosta; Piper Lopez; Jessica Alberto; Mary Bey; Kris Villatoro; Kris Rosales; Josue Glover; Schuyler Louise; Jose Mcmillan; Natacha Solares; Abhay Griffith; Maryse Murillo; Flaco Gilbert; Hermann Tellez; Isaak Cruz; Jennifer Carter; Real Wang Instructions Additional Instructions / Restrictions: 1. During your procedure, you received sedation through your IV. Please follow these instructions for the next 24 hours: Do not drive a motor vehicle, do not drink any alcoholic beverages, and do not sign any legal documents or make personal or business decisions. A responsible adult should stay with you at least 6 hours after the procedure. 2. Keep your surgical site/incision clean and the dressing dry and intact. Change dressings daily with gauze and tape. You may use an ice pack at the surgical site to reduce any swelling or discomfort. 3. Monitor the incision site for any signs or symptoms of infection. Watch for redness, excessive swelling or drainage, or continued pain at the incision site after 3 days. Contact your physician immediately for a fever, chills or a temperature of 101.5? F or greater. 4. Take your medication exactly as prescribed by your physician. Do not attempt to wean yourself off any of your medications even though your pain is improving. This process needs to be carefully monitored by your doctor. Take any antibiotics prescribed exactly as directed and until they are gone. 5. Avoid stretching, bending, pulling, twisting or any sudden movements. Do not bend or twist at the waist. Do not raise your arms above your head; however, you may brush your hair or scratch your head, but nothing higher than that. Any movements higher than that could cause your electrode wires to move from their current position. No not lie on your stomach. Do not bend at the waist to put your shoes on; you must lift your legs up to do this. 6. No lifting greater than 5 pounds. . Try to be careful. Any falls could dislodge the leads. 7. Do not operate a motor vehicle, equipment or a power tool while your stimulator is on. If you need to use any equipment, you must turn your stimulator off first. As a passenger in a motor vehicle, you may use your stimulator. 8. Do not have any manipulation done by a chiropractor or any other physician without first consulting with the physician who placed your spinal cord stimulator. 9. Without movement, you may note changes in the intensity of the stimulator. For example, you may notice a different stimulation when you are standing than when you are sitting or lying down. This is normal the first few weeks following the implant and will stabilize over time. 10. Please contact our office if you are even scheduled for a CT scan or an MRI. 11. Please call us if you have any questions, problems or concerns. Discharge Orders/Prescriptions Prescriptions: New hydrocodone-acetaminophen 5-325 mg tablet 1 tab PO Q6H 7 Days Qty: 28 0RF Continued multivitamin [Daily Multi-Vitamin] tablet 1 tab PO DAILY tamsulosin [Flomax] 0.4 mg capsule 0.4 mg PO DAILY cholecalciferol (vitamin D3) [Vitamin D3] 25 mcg (1,000 unit) tablet 25 mcg PO DAILY donepezil 10 mg tablet 10 mg PO DAILY duloxetine 30 mg capsule,delayed release(DR/EC) 30 mg PO DAILY metoprolol succinate 25 mg tablet extended release 24 hr 25 mg PO DAILY Qty: 90 3RF Discontinued Eliquis 5 mg tablet 5 mg PO BID Patient Comments: PT TO STOP MED PER REQUEST Referrals / Follow Up: Romie Delgado DO [Med Staff - Active Staff] - Isaak Cruz MD [Primary Care Provider] - Disposition Disposition (needs filled in before D/C Order can be placed): Home, Self Care
[2024-02-06] MEDS: Cefazolin 2 GM in Syringe IV (07:29)
[2024-02-06] MEDS: THROMBIN (RECOMBINANT) 20,000 UNIT VIAL 20000 UNIT TOPICAL (08:30)
[2024-02-06] MEDS: Bupivacaine 0.25% 30 ML Vial (09:50)
--- NOTE | 2024-02-06 10:13 | PCM.POST.ANE ---
Anesthesia: Postop Eval I Current Vital Signs Temperature: 97 F Pulse Rate: 66 Blood Pressure: 147/76 Respiratory Rate: 18 Pulse Ox: 100 Oxygen Delivery Method: Simple Mask Oxygen Flow Rate (L/min): 6 Assessment Airway patent: Yes Spontaneous unlabored respirations: Yes Mental status: Awake and Calm nausea: No Vomiting: No Anesthesia Complication: No Fluid Hydration Crystalloid volume administer (ml): 1,000 Total IV fluid infused: 1,000 Progress Note Anesthesia document: Postop Eval 1 completed: Yes
--- NOTE | 2024-02-06 10:51 | POSTOPAN2_ITS ---
Anesthesia Postop Eval I Sum Postop Eval Completion status Anesthesia document: Postop Eval 1 completed: Yes Anesthesia Postop Eval I Summary Anesthesia Postop Eval I Summary: Anesthesia Postop Eval I: Assessment Summary Airway patent Yes 02/06/24 10:14 MYSQL DATABASE DEVELOPER.WAGNEROBBabar Spontaneous unlabored Yes 02/06/24 10:14 MYSQL DATABASE DEVELOPER.MELVIN respirations Mental status Awake,Calm 02/06/24 10:14 MYSQL DATABASE DEVELOPER.WAGNEROBBabar nausea No 02/06/24 10:14 MYSQL DATABASE DEVELOPER.MELVIN Vomiting No 02/06/24 10:14 MYSQL DATABASE DEVELOPER.MELVIN Anesthesia Postop Eval I: Fluid Summary Crystalloid volume administer 1,000 02/06/24 10:14 MYSQL DATABASE DEVELOPER.WAGNEROBY (ml) Colloids volume administered ( ml) Blood Product volume administered (ml) Total IV fluid infused 1,000 02/06/24 10:14 MYSQL DATABASE DEVELOPER.MELVIN Anesthesia Postop Eval I: Summary Notes Anesthesia Complication No 02/06/24 10:14 MYSQL DATABASE DEVELOPER.MELVIN Anesthesia Complication Comment: Post-operative progress note Anesthesia: Postop Eval II Evaluation Mental status: Awake Pain Level: 0 nausea: No Vomiting: No
--- NOTE | 2024-02-06 10:51 | PCM.POSTANE2 ---
Anesthesia Postop Eval I Sum Postop Eval Completion status Anesthesia document: Postop Eval 1 completed: Yes Anesthesia Postop Eval I Summary Anesthesia Postop Eval I Summary: Anesthesia Postop Eval I: Assessment Summary Airway patent Yes 02/06/24 10:14 ATOMIC SPECTROSCOPIST.WAGNEROBBabar Spontaneous unlabored Yes 02/06/24 10:14 ATOMIC SPECTROSCOPIST.MELVIN respirations Mental status Awake,Calm 02/06/24 10:14 ATOMIC SPECTROSCOPIST.WAGNEROBBabar nausea No 02/06/24 10:14 ATOMIC SPECTROSCOPIST.MELVIN Vomiting No 02/06/24 10:14 ATOMIC SPECTROSCOPIST.MELVIN Anesthesia Postop Eval I: Fluid Summary Crystalloid volume administer 1,000 02/06/24 10:14 ATOMIC SPECTROSCOPIST.WAGNEROBY (ml) Colloids volume administered ( ml) Blood Product volume administered (ml) Total IV fluid infused 1,000 02/06/24 10:14 ATOMIC SPECTROSCOPIST.MELVIN Anesthesia Postop Eval I: Summary Notes Anesthesia Complication No 02/06/24 10:14 ATOMIC SPECTROSCOPIST.MELVIN Anesthesia Complication Comment: Post-operative progress note Anesthesia: Postop Eval II Evaluation Mental status: Awake Pain Level: 0 nausea: No Vomiting: No
--- NOTE | 2024-02-06 10:53 | PRE.ANES_ITS ---
Assessment & Plan Anesthesia* Anesthesia Assessment Anesthesia Assessment: Discussed sedation and/or anesthesia options, risks, benefits, and alternatives with patient/parents/legal guardian/POA. Questions invited. The patient/parents/legal guardian/POA seems to understand and agrees to proceed with anesthesia plan. Reviewed the physical assessment, medical history, allergy history and patient home medications list prior to surgery/procedure/anesthetic and documented any changes. Performed airway and anesthesia risk assessments. Anesthesia Focused Assessment* Temperature: 97 F Pulse Rate: 67 Blood Pressure: 136/79 Respiratory Rate: 18 Pulse Ox: 99 Focused Labs Anesthesia Preop lab: CBC WBC 5.6 K/mm3 (4.4-11.0) 01/22/24 07:32 RBC 4.67 M/mm3 (4.6-6.2) 01/22/24 07:32 Hgb 13.7 g/dL (13.0-16.5) 01/22/24 07:32 Hct 41.8 % (40-54) 01/22/24 07:32 Plt Count 239 K/mm3 (150-450) 01/22/24 07:32 CHEMISTRY Potassium 4.1 mmol/L (3.5-5.1) 01/22/24 07:32 Sodium 140 mmol/L (136-145) 01/22/24 07:32 Magnesium 2.3 mg/dL (1.6-2.6) 12/26/20 08:33 BUN 19 mg/dL (7-18) H 01/22/24 07:32 Creatinine 0.92 mg/dL (0.70-1.30) 01/22/24 07:32 Glucose 110 mg/dL (74-106) H 01/22/24 07:32 POC Glucose 88 mg/dL (70-110) 03/13/21 09:55 TSH 2.24 uIU/mL (0.358-3.74) 11/22/22 10:09 COAG PT 15.2 SECONDS (11.7-14.9) H 01/22/24 07:32 Pre-Assessment Diagnosis/Proposed Procedure Planned Operative Procedure(s): Hardware Removal of Spinal Cord Stimulator Leads, Thoracic 9 - Thoracic 10 Laminectomy, Implantation of Permanent Spinal Cord Stimulator Leads Anesthesia History 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 When Was Last Pacemaker Check QUESTION #4 FULL TEXT: You/Your Family Experience fever (hyperthermia) with Anesthesia Last Oral Intake Last Oral intake: Last Oral Intake NPO since 22:00 02/06/24 06:23 Meds taken in AM with sips of Yes 02/06/24 06:23 water? Meds patient instructed to METOPROLOL 02/06/24 06:23 take am of surgery PONV PONV - agriscience technology instructor: PONV - agriscience technology instructor Female No 01/15/24 09:11 HX of Motion Sickness No 01/15/24 09:11 HX of N/V After Surgery No 01/15/24 09:11 Non-Smoker Yes 01/15/24 09:11 Duration of Surgery greater Yes 01/15/24 09:11 than 60 minutes Number of Risk Factors 2 01/15/24 09:11 PONV Score Moderate Risk 01/15/24 09:11 Height & Weight Height & Weight: Anesthesia: Height & Weight Height 6 ft 4 in 02/06/24 06:23 Weight: 101 kg 02/06/24 06:23 Body Mass Index (BMI) 27.1 02/06/24 06:23 Respiratory Assessment Respiratory Assessment - agriscience technology instructor: Respiratory Tract Infection Hx - agriscience technology instructor Hx Respiratory Tract Infection No 01/15/24 09:11 STOP Sleep Apnea STOP Sleep Apnea - agriscience technology instructor: STOP Sleep Apnea - agriscience technology instructor Hx Hypertension No 01/15/24 09:11 Hx Sleep Apnea No 01/15/24 09:11 CPAP No 02/06/24 10:12 BIPAP No 01/15/24 09:11 Do you snore loudly (louder No 01/15/24 09:11 than talking or can be heard Do you often feel tired/ No 01/15/24 09:11 fatigued/ sleepy during daytime? Has anyone observed you stop No 01/15/24 09:11 breathing during sleep? STOP Results Negative 02/06/24 10:12 QUESTION #5 FULL TEXT : Do you snore loudly (louder than talking or can be heard through closed doors)? Tobacco Use History Tobacco Use History - agriscience technology instructor: Tobacco Use History - agriscience technology instructor Tobacco Use Smoking Status Former smoker 01/15/24 09:11 Hx Tobacco Use No 01/15/24 09:11 Years Smoking Packs Smoked per Day Smoking Cessation Date was No - quit smoking greater 01/15/24 09:11 within the last 15 years than 15 years ago Hx Smoking Cessation Date 04/08/89 01/15/24 09:11 Hx Smoking Cessation No 01/15/24 09:11 Counseling Hematologic Medial History Hematologic Hx - agriscience technology instructor: Hematologic Medical Hx - music minister Hx of Blood Transfusion No 01/15/24 09:11 Hx of Transfusion in last 3 No 01/15/24 09:11 Months Date of Last Transfusion (if within last 3 months) Ever experience any problems No 01/15/24 09:11 with transfusion(s)? Specify any problems Hx of Preganancy in last 3 N/A 01/15/24 09:11 Months Nurse Filling Out Transfusion VCHRISTIN 01/15/24 09:11 & Questions: Date: 01/15/24 01/15/24 09:11 Time: 09:13 01/15/24 09:11 Patient unable to answer at this time (ie. confused, unrespo /Reproduction History /Reproductive History - agriscience technology instructor: /Reproductive Hx- agriscience technology instructor Hx Now No 01/15/24 09:11 Gestational Age (in weeks): EDC: Hx Hx Para Hx Section SAB No 01/15/24 09:11 Active Medications Active Medications: Current Medications Generic Name Dose Route Start Last Admin Trade Name Freq PRN Reason Stop Dose Admin Acetaminophen 1,000 mg 02/06/24 14:00 Acetaminophen 500 Mg Tablet PO Q8 SHEREE Cholecalciferol 25 mcg 02/06/24 10:00 Cholecalciferol (Vit D3) 25 Mcg Tablet (1,000 Units) PO DAILY SHEREE Donepezil HCl 10 mg 02/06/24 10:00 Donepezil Hcl 10 Mg Tablet PO DAILY SHEREE Duloxetine HCl 30 mg 02/06/24 10:00 Duloxetine Hcl 30 Mg Capsule PO DAILY [facility] Enteral Nutritional Formula 237 ml 02/06/24 08:00 Ensure Surgery 237 Ml Liquid PO TIDCM [facility] Lactated Ringer's 1,000 mls @ 15 mls/hr 02/06/24 06:00 02/06/24 06:28 IV 02/11/24 19:19 15 mls/hr .Q48H [facility] Administration Protocol Cefazolin Sodium 1 gm in 50 mls @ 100 mls/hr 02/06/24 07:35 IV Q8H [facility] Metoprolol Succinate 25 mg 02/06/24 10:00 Metoprolol(Xl)Succ 25 Mg Tablet PO DAILY [facility] Protocol Morphine Sulfate 2 - 4 mg 02/06/24 07:31 Morphine 4 Mg/Ml Syringe IV Q2H PRN PRN Pain Score 6-10 Morphine Sulfate 2 - 4 mg 02/06/24 07:39 Morphine 2 Mg/Ml Syringe IV Q2H PRN PRN Pain Score 6-10 Multivitamins 1 tablet 02/06/24 10:00 Multivitamins,Therapeutic Tablet PO DAILY [facility] Oxycodone HCl 2.5 - 5 mg 02/06/24 07:31 Oxycodone 5 Mg Tablet PO Q4H PRN PRN Pain Score 6-10 Tamsulosin HCl 0.4 mg 02/06/24 10:00 Tamsulosin Hcl 0.4 Mg Capsule PO DAILY [facility] PFSH Medical History Wears hearing aid Wears partial dentures Wears dentures Wears glasses History of stress test Cardiology follow-up encounter Loss of hearing Depression Arthritis Back pain Former smoker Exertional chest pain Lack of stamina Obesity Nonobstructive atherosclerosis of coronary artery Paroxysmal atrial fibrillation Hyperlipidemia Home Medications ?Medication ?Instructions ?Recorded ?Last Taken ?Type multivitamin (Daily Multi-Vitamin 1 tab PO DAILY 06/17/18 02/05/24 History tablet) tamsulosin 0.4 mg capsule (Flomax) 0.4 mg PO DAILY 06/18/19 02/05/24 History metoprolol succinate 25 mg 25 mg PO DAILY #90 tabs 05/24/23 02/06/24 Rx tablet,extended release 24 hr cholecalciferol (vitamin D3) 25 25 mcg PO DAILY 01/15/24 02/05/24 History mcg (1,000 unit) tablet (Vitamin D3) donepezil 10 mg tablet 10 mg PO DAILY 01/15/24 02/05/24 History duloxetine 30 mg capsule,delayed 30 mg PO DAILY 01/15/24 02/05/24 History release hydrocodone-acetaminophen 5-325mg 1 tab PO Q6H 7 days #28 tabs 02/06/24 Unknown Rx 5mg-325mg Allergy/AdvReac Type Severity Reaction Status Date / Time No Known Allergies Allergy Verified 02/06/24 06:07 Family History Father Heart disease chf Brother Heart disease atrial fib Surgical History Spinal cord stimulator status (05/16/22) History of arthroplasty of right knee Hx of total knee replacement Hx of colonoscopy History of cardioversion (06/06/20) History of left heart catheterization (07/29/15) Social History Smoking Status: Former smoker how long ago did patient quit smokin years ago alcohol intake: never substance use type: does not use caffeine: Yes Type: coffee Number of servings: 7 Review of Systems (Anesthesia) ROS Narrative System reviewed and no additional complaints, except as documented.
--- NOTE | 2024-02-06 11:56 | PN_ITS ---
Subjective Subjective Patient is an 83 y/o male admitted to the service of orthopedic surgery on 02/06/2024 for lumbar spondylosis; he had explantation of spinal cord stimulator and a T9-T10 partial bilateral laminectomies. Hospital service was consulted for medical management. Patient was seen in PACU. He had no active complaints. Pain was well controlled. Review of systems is otherwise negative. Objective Data Objective Data Vital Signs: Vital Signs Temp Pulse Resp BP Pulse Ox O2 Del Method O2 Flow Rate 97.0 F L 66 18 138/69 H 99 Room Air 6 02/06/24 10:55 02/06/24 10:55 02/06/24 10:55 02/06/24 10:55 02/06/24 10:55 02/06/24 10:55 02/06/24 10:14 Oxygen Flow Rate (L/min) 6 Oxygen Delivery Method Room Air Weight: 222 lb 10.67 oz Body Mass Index (BMI) 27.1 Intake & Output: Intake and Output for Last 24 Hours 02/04/24 02/05/24 02/06/24 23:59 23:59 23:59 Intake Total 1020 / 1020 Balance 1020 / 1020 Lab / Micro Data 01/22/24 07:32 01/22/24 07:32 Micro: Microbiology 01/22/24 07:32 Swab (Method) Nasal Screen MRSA/MSSA - Final Physical Exam Const alert, oriented x3 and no apparent distress General Appearance: cooperative HEENT normocephalic, head/scalp atraumatic and moist oral mucous membranes Neck no lymphadenopathy and supple Lymph Lymphatic: no lymphadenopathy noted and no lymphedema noted Resp normal respiratory effort, normal air movement and clear to auscultation bilaterally Cardio regular rhythm, S1 normal heart sound and S2 normal heart sound GI normal to inspection, nondistended, normoactive bowel sounds, soft to palpation and non-tender Extremity no calf tenderness Skin Skin Narrative: intact dressing over surgical site on her back Neuro CN's II-XII intact bilaterally Motor Exam: general weakness Psych thought process normal and cooperative Appearance: appropriate Assessment & Plan Assessment/Plan (1) Lumbar spondylosis: PLAN: Plan #Lumbar spondylosis * S/p explantation of spinal cord stimulator percutaneous leads and generator, T9-T10 partial bilateral laminectomies and dorsal column stimulator paddle lead placement as well as implantation of new spinal cord stimulator generator and battery * Today's postop day 0. Management as per primary service spine surgery * PT OT on board * Incentive spirometry. * # Depression and anxiety: On duloxetine #Dementia: On donepezil # BPH: On Flomax DVT prophylaxis: As per primary service Thank you for the courtesy of the consult. Charges/Coding Visit Charges Inpatient E&M: 34400 Subs Hosp L2
[2024-02-06] MEDS: Acetaminophen 500 MG Tablet 1000 MG PO ×2 (15:25→22:57)
[2024-02-06] MEDS: Cefazolin 1 GM/50 ML BAG IV ×2 (17:03→23:00)
[2024-02-06] MEDS: Cholecalciferol (VIT D3) 25 MCG TABLET (1,000 UNITS) PO (17:04)
[2024-02-06] MEDS: Ensure Surgery 237 ML LIQUID PO (17:04)
[2024-02-06] MEDS: 0.9% Saline Lock 10 ML Syringe IV (23:10)
[2024-02-07] VITALS (7 sets, daily range): BP systolic 111–124; BP diastolic 82–85; PULSE 52–84; RESP 14–16; TEMP 36.4–37.1; O2SAT 97–98; BMI 27.1
[2024-02-07] MEDS: Acetaminophen 500 MG Tablet 1000 MG PO (06:30)
[2024-02-07] MEDS: Ensure Surgery 237 ML LIQUID PO (09:43)
[2024-02-07] MEDS: Tamsulosin HCl 0.4 MG Capsule PO (09:46)
[2024-02-07] MEDS: Donepezil HCl 10 MG Tablet PO (09:46)
[2024-02-07] MEDS: DULoxetine Hcl 60 MG Capsule PO (09:46)
[2024-02-07] MEDS: Metoprolol(XL)Succ 25 MG Tablet PO (09:46)
[2024-02-07] MEDS: Multivitamins,Therapeutic Tablet 1 TABLET PO (09:46)
[2024-02-07] MEDS: Cholecalciferol (VIT D3) 25 MCG TABLET (1,000 UNITS) PO (09:47)
--- NOTE | 2024-02-07 10:52 | CASEMGMT ---
Met with patient to complete POSADA form. POSADA form explained to patient who voiced understanding and signed form. Original form placed in pt?s chart and copy provided to patient. Dafne Hall, Discharge Planning Asst
--- NOTE | 2024-02-07 15:20 | PN_ITS ---
Subjective Subjective Patient seen and examined. He felt well this morning and had no complaints. He had an uneventful night. Review of systems otherwise negative. Objective Data Objective Data Vital Signs: Vital Signs Temp Pulse Resp BP Pulse Ox O2 Del Method O2 Flow Rate 97.9 F 72 16 115/82 H 98 Room Air 6 02/07/24 11:06 02/07/24 11:06 02/07/24 11:06 02/07/24 11:06 02/07/24 11:06 02/07/24 11:06 02/06/24 10:14 Oxygen Flow Rate (L/min) 6 Oxygen Delivery Method Room Air Weight: 222 lb 10.67 oz Body Mass Index (BMI) 27.1 Intake & Output: Intake and Output for Last 24 Hours 02/05/24 02/06/24 02/07/24 23:59 23:59 23:59 Intake Total 1070 / 1570 750 / 750 Output Total 1250 / 1250 Balance 1070 / 820 -500 / -500 Lab / Micro Data 01/22/24 07:32 01/22/24 07:32 Micro: Microbiology 01/22/24 07:32 Swab (Method) Nasal Screen MRSA/MSSA - Final Radiography Diagnostic Testing: Radiology Impression Thoracic Spine X-Ray 02/06/24 06:30 IMPRESSION: Intraoperative fluoroscopic services provided for implantation of a spinal cord stimulator device. Electronically Signed: Ranjeet Ley MD at 10:00 EDT Reading Location ID and State: [address] [place] [address] , Service support , Physical Exam Const alert, oriented x3 and no apparent distress General Appearance: cooperative HEENT normocephalic, head/scalp atraumatic and moist oral mucous membranes Neck no lymphadenopathy and supple Lymph Lymphatic: no lymphadenopathy noted and no lymphedema noted Resp normal respiratory effort, normal air movement and clear to auscultation bilaterally Cardio regular rhythm, S1 normal heart sound and S2 normal heart sound GI normal to inspection, nondistended, normoactive bowel sounds, soft to palpation and non-tender Extremity no calf tenderness Skin Skin Narrative: intact dressing over surgical site on her back Neuro CN's II-XII intact bilaterally Motor Exam: general weakness Psych thought process normal and cooperative Appearance: appropriate Assessment & Plan Assessment/Plan (1) Lumbar spondylosis: PLAN: Plan #Lumbar spondylosis * S/p explantation of spinal cord stimulator percutaneous leads and generator, T9-T10 partial bilateral laminectomies and dorsal column stimulator paddle lead placement as well as implantation of new spinal cord stimulator generator and battery * Today's postop day 1. Management as per primary service spine surgery * PT OT on board * Incentive spirometry. * #Atrial fibrillation * Rate controlled. On metoprolol. Eliquis on hold due to back surgery. Follow-up with PCP to determine when Eliquis is to be resumed. * # Depression and anxiety: On duloxetine #Dementia: On donepezil # BPH: On Flomax DVT prophylaxis: As per primary service Thank you for the courtesy of the consult. Patient stable for discharge from hospitalist standpoint. Charges/Coding Visit Charges Inpatient E&M: 39787 Subs Hosp L2
== END 2024-02-07 11:00 | disposition home or self-care (01) ==
LOC: SDC 15:18 → MS3 15:18
PROVIDERS: Admitting Provider Orthopaedic Surgery; PCP Family Medicine; Referring Provider Orthopaedic Surgery; Visit Provider Orthopaedic Surgery
PROC: (CPT 63655; principal; 2024-02-06 07:00)
DX: Z45.42 Encounter for adjustment and management of neurostimulator (principal); F03.90 Unspecified dementia, unspecified severity, without behavioral disturbance, psychotic disturbance, mood disturbance, and anxiety; I48.0 Paroxysmal atrial fibrillation; M48.061 Spinal stenosis, lumbar region without neurogenic claudication; M47.816 Spondylosis without myelopathy or radiculopathy, lumbar region; G89.29 Other chronic pain; Z79.899 Other long term (current) drug therapy; Z79.01 Long term (current) use of anticoagulants; E66.9 Obesity, unspecified; E78.5 Hyperlipidemia, unspecified; F41.9 Anxiety disorder, unspecified; F32.A Depression, unspecified; N40.0 Benign prostatic hyperplasia without lower urinary tract symptoms; T85.122D Displacement of implanted electronic neurostimulator of spinal cord electrode (lead), subsequent encounter; Y75.2 Prosthetic and other implants, materials and neurological devices associated with adverse incidents
CPT/HCPCS: 63685; 63655; 95972; 00300; 36415; 71046; 72070; 76000; 80048; 85025; 85610; 85730; 87081; 93005; 94668; 96365; 96366; 99221; C1713; C1778; J7120; A4216; G0378; J2405

== ENCOUNTER → 2024-05-22 | Outpatient (CLI) | payer MEDICARE, OTHER, SELFPAY ==
[2024-05-22 11:23] LABS: AST(SGOT) 23 U/L (15-37); Alanine Aminotransfer ALT/SGPT 25 U/L (16-61); Albumin, Serum 3.5 g/dL (3.2-5.0); Alkaline Phosphatase 111 U/L (45-117); Anion Gap 4 (5-15); BUN 21 mg/dL (7-18); BUN/Creat Ratio 23.2 RATIO (10-20); Calcium,Total 9.2 mg/dL (8.5-10.1); Chloride 106 mmol/L (98-107); Cholesterol 199 mg/dL (200); Creatinine, Serum 0.91 mg/dL (0.70-1.30); EST Glomerular Filtration Rate 85 mL/min (>60); Est Glom Filt Rate - Afr Amer 103 mL/min (>60); Globulin 3.6 g/dL (2.2-4.2); Glucose 104 mg/dL (74-106); High Density Lipoprotein 48 mg/dL; Potassium 4.4 mmol/L (3.5-5.1); Protein, Total 7.1 g/dL (6.4-8.2); Sodium Level 139 mmol/L (136-145); Triglycerides 115 mg/dL; Very Low Density Lipoprotein 23 mg/dL (5-40)
== END | disposition home or self-care (01) ==
LOC: MFPLAB 08:47
PROVIDERS: PCP Family Medicine; Referring Provider Family Medicine; Visit Provider Family Medicine
DX: I48.91 Unspecified atrial fibrillation (principal)
CPT/HCPCS: 36415; 80053; 80061

== ENCOUNTER → 2024-09-30 | Outpatient (CLI) | payer MEDICARE, OTHER, SELFPAY ==
--- NOTE | 2024-09-30 13:43 | SP.MBSS_ITS ---
Modified Barium Swallow Patient Information Study Date: 09/30/24 Study Time: 09:30 Direct Billable Minutes: 91 Total Minutes procedure & reportin Diagnosis: Dysphagia R13.10 Referring Physician: Isaak Cruz Reason for Referral: Pt reports intermittent sensation of retention of liquids, pills, and occ foods in upper esophagus w/ accompanying odynophagia (~3-5/10). PCP recommended MBSS. He denies s/s of aspiration or regurgitation w/ food/drink/meds. Medical History: A fib, Obesity, Lumbar spondylosis, HLD, Nonobstructive atherosclerosis of the coronary artery - See EMR for full PMH. Current Diet Ordered: Regular textures / Thin liquids Dentition: Upper Dentures and Lower Dentures Mental Status: WNL Respiratory Status: Oxygenating on Room Air Penetration-Aspiration Scale Penetration-Aspiration Scale: OBJECTIVE ASSESSMENT OF SWALLOW FUNCTION (QUANTITATIVE ? PER TRIAL): PENETRATION / ASPIRATION SCALE (AVERY): 1 = does not enter airway 2 = enters airway/above vocal folds/ejected 3 = enters airway/above vocal folds/not ejected 4 = enters airway/contacts vocal folds/ejected 5 = enters airway/contacts vocal folds/not ejected 6 = enters airway/below vocal folds/ejected 7 = enters airway/below vocal folds/not ejected despite effort 8 = enters airway/below vocal folds/no effort VIDEOFLOROSCOPIC SCALE SCORE (AVERY): Grade I = aspiration of material that has penetrated into the laryngeal vestibule, intact cough reflex Grade II = aspiration < 10 % of the bolus, intact cough reflex Grade III = aspiration of < 10 % of the bolus, reduced cough reflex or aspiration of > 10 % of the bolus, intact cough reflex Grade IV = aspiration of > 10 % of the bolus, reduced cough reflex Penetration-Aspiration Scale Score Thin Liquid via teaspoon: Result: 1= does not enter airway Thin Liquid via teaspoon Trial 2: Result: 1= does not enter airway Thin Liquid via large single sip: cup: Result: 1= does not enter airway [place] Thick Liquid via small single sip: cup: Result: 1= does not enter airway Pudding via teaspoon: Result: 1= does not enter airway Comment: Esophageal screen - Mild retention in middle esophagus. 1/2 Cookie: Result: 1= does not enter airway Comment: Esophageal screen - Retention in middle and lower esophagus. Thin Liquid via single sip: straw: Result: 1= does not enter airway Comment: Esophageal screen - Liquid wash somewhat cleared cookie through middle and lower esophagus. An additional sip cleared majority of cookie w/ min retention and retrograde flow of barium in the lower esophagus. Barium Tablet w/ water: Result: 1= does not enter airway Comment: Esophageal screen - Complete clearance. Thin Liquid via sequential sips: cup: Result: 1= does not enter airway Comment: Esophageal screen - Retention in the middle and lower esophagus w/ retrograde flow. (This trial was input out of order. It was provided after Thin liquid via large single sip: cup and before [place] thick liquid via small single sip: cup) Oral Phase Labial Seal: No Labial Escape Tongue Control During Bolus Hold: Cohesive bolus between tongue to palatal seal Bolus Preparation/Mastication: Timely and efficient chewing and mashing Bolus Transport/Lingual Motion: Brisk tongue motion Oral Residue: Residue collection on oral structures Pharyngeal Phase Initiation of Pharyngeal Swallow: Bolus head in valleculae Soft Palate Elevation: Trace column of contrast/air between soft palate and pharyngeal wall Laryngeal Elevation: Comp. Superior move thyroid cart w/comp. apprx arytenoid cart-epig pet Anterior Hyoid Excursion: Partial anterior movement Epiglottic Movement: Complete inversion Laryngeal Vestibule Closure at Height of Swallow: Complete; no air/contrast in laryngeal vestibule Pharyngeal Stripping Wave: Present - complete Pharyngoesophageal Segment Opening: Parital distension and partial duration; parital obstruction of flow (trace retention in UES) Tongue Base Retraction: Trace column of contrast between tongue base & post. pharyngeal wall Pharyngeal Residue: Trace residue within or on pharyngeal structures Esophageal Phase Esophageal Clearance: Esophageal retention w/ retrograde flow below pharyngoesophageal seg. Diagnosis/Impression Diagnosis: Esophageal dysphagia R13.14 Impression: Oropharyngeal swallow function is grossly WNL. The esophageal phase is primarily marked by... -Retention of sequential sips of thin liquids in the lower esophagus w/ retrograde flow. -Retention of pudding and cookie in the esophagus, which mostly cleared through the LES w/ 1-2 liquid washes. Recommendations Diet: Regular Textures and Thin Liquids Comment: STOP meal if sensation of retention despite use of strategies listed below and resume meal at a later time. Compensatory Strategies: Small Bites, Small Sips, Slow Rate, Alternate bites/solids and sips/liquids (1:1 ratio) and Sitting upright (During and 30- 60min after po intake) Recommend Repeat Modified Barium Swallow: No Need for Skilled Speech Therapy Services: No Recommended Referrals: GI Consult Education Completed: 1. Described result of evaluation. Status Active ST Patient: Active Contact Information [facility]:: Sia Boland M.A. CCC-RESOURCE SPECIALIST TEACHER? Speech-Language Pathologist?? [facility] [address] [place] [address]? [email or web address]?? [phone]
== END | disposition home or self-care (01) ==
LOC: RAD 09:12
PROVIDERS: PCP Family Medicine; Referring Provider Family Medicine; Visit Provider Family Medicine
DX: R13.10 Dysphagia, unspecified (principal)
CPT/HCPCS: 74230; 92611

== ENCOUNTER → 2024-11-18 | Outpatient (CLI) | payer MEDICARE, OTHER, SELFPAY ==
--- OUTSIDE RECORDS SUMMARY | 2024-11-18 09:05 | XMS RPT_ITS | CCD ---
Author Organization [facility] Care Team Providers Care Oncology Specialist Name Role Phone Dr. Isaak Cruz Primary Care Provider Nancy, Dr. Mulligan Referring Provider Nancy, Dr. Mulligan Other Provider Dr. Gilberto Jack Attending Provider [phone] Isaak Cruz Primary Care Provider Nancy, Dr. Mulligan Referring Provider [phone] Nancy, Dr. Mulligan Other Provider Dr. Gilberto Jack Attending Provider DARNELL Mark Attending Provider DARNELL Jimenez Attending Provider Dr. Isaak Cruz Primary Care Provider Nancy, Dr. Mulligan Referring Provider [phone] Isaak Cruz MD Primary Care Provider [phone] Dr. Isaak Cruz MD Referring Provider Dr. Gilberto Jack MD Attending Provider [phone] Isaak Cruz MD Attending Provider [phone] Isaak Cruz Referring Unavailable Isaak Cruz Primary Care Unavailable Isaak Cruz Attending Unavailable Isaak Cruz Primary Care Unavailable Romie Delgado Referring Unavailable Ld Martinez Attending Unavailable Maryse Murillo Attending Unavailable Isaak Cruz Primary Care Unavailable Romie Delgado Admitting Unavailable Romie Delgado Referring Unavailable Raymundo Dacosta Consulting Unavailable [employer], [place] Consulting Unavailable Remy Achintya Consulting Unavailable Mary Bey Consulting Unavailable Enrico Villatoro Consulting Unavailable Enrico Rosales Consulting Unavailable Josue Glover Unavailable Schuyler Louise Consulting Unavailable Jose Mcmillan Consulting Unavailable Natacha Solares Unavailable Abhay Griffith Unavailable Maryse Murillo Consulting Unavailable Flaco Gilbert Consulting Unavailable Hermann Tellez Unavailable Isaak Cruz Consulting Unavailable Jennifer Carter Consulting Unavailable Real Wang Unavailable Romie Delgado Consulting Unavailable Isaak Cruz Primary Care Unavailable Gilberto Jack Attending Unavailable Isaak Cruz Primary Care Unavailable Isaak Cruz Referring Unavailable Gilberto Jack Attending Unavailable Isaak Cruz Primary Care Unavailable Romie Delgado Admitting Unavailable Romie Delgado Referring Unavailable Raymundo Dacosta Consulting Unavailable Romie Delgado Attending Unavailable Piper Lopez Consulting Unavailable Jessica Alberto Consulting Unavailable Mary Bey Consulting Unavailable Enrico Villatoro Unavailable Enrico Rosales Consulting Unavailable Josue Glover Consulting Unavailable Schuyler Louise Consulting Unavailable Jose Mcmillan Consulting Unavailable Natacha Solares Consulting Unavailable Abhay Griffith Consulting Unavailable Maryse Murillo Consulting Unavailable Flaco Gilbert Consulting Unavailable Hermann Tellez Consulting Unavailable Isaak Cruz Consulting Unavailable Jennifer Carter Consulting Unavailable Real Wang Unavailable Isaak Cruz Attending Unavailable Isaak Cruz Primary Care Unavailable Isaak Cruz Primary Care Unavailable Isaak Cruz Referring Unavailable Isaak Cruz Attending Unavailable Medications Current Medications Medication Drug Class(es) Dates Sig (Normalized) Sig (Original) apixaban 5 mg oral tablet (10 sources) Factor Xa Inhibitor Start: 07-14-2024 take 1 tablet by mouth twice daily Apixaban (Eliquis) 5 mg tablet Active 5 mg PO TWICE A DAY July 14, 2024 12:00am Start: 05-17-2020 End: 02-06-2024 take 1 tablet by mouth twice daily Apixaban (Eliquis) 5 mg tablet Discontinued 5 mg PO TWICE A DAY May 17, 2020 1:00am February 06, 2024 7:29am cholecalciferol 0.025 mg oral tablet (20 sources) Vitamin D Start: 01-15-2024 take 1 tablet by mouth once daily Cholecalciferol (Vitamin D3) (Vitamin D3) 25 mcg (1,000 unit) tablet Active 25 ug PO DAILY January 15, 2024 12:00am Start: 05-29-2022 End: 01-15-2024 take 1 capsule by mouth once daily Cholecalciferol (Vitamin D3) 1,250 mcg (50,000 unit) capsule Discontinued 70498 U PO DAILY May 29, 2022 10:54am January 15, 2024 9:02am Start: 09-13-2020 End: 05-29-2022 take 1 capsule by mouth once daily Cholecalciferol (Vitamin D3) 1,250 mcg (50,000 unit) capsule Discontinued 1000 ug PO DAILY September 13, 2020 9:51am May 29, 2022 10:55am Start: 06-18-2019 End: 09-13-2020 take 1 capsule by mouth once daily Cholecalciferol (Vitamin D3) 1,250 mcg (50,000 unit) capsule Discontinued 1250 ug PO DAILY June 18, 2019 12:00am September 13, 2020 9:52am donepezil hydrochloride 10 mg oral tablet (6 sources) Start: 01-15-2024 take 1 tablet by mouth once daily Donepezil 10 mg tablet Active 10 mg PO DAILY January 15, 2024 12:00am Start: 05-27-2023 End: 01-15-2024 take 1 tablet by mouth once daily Donepezil 5 mg tablet Discontinued 5 mg PO DAILY May 27, 2023 1:00am January 15, 2024 9:03am DULoxetine 30 mg delayed release oral capsule (2 sources) Serotonin and Norepinephrine Reuptake Inhibitor Start: 01-15-2024 take 1 capsule by mouth once daily Duloxetine 30 mg capsule,delayed release(DR/EC) Active 30 mg PO DAILY January 15, 2024 12:00am Multivitamin (Daily Multi-Vitamin) tablet (8 sources) Start: 06-17-2018 Multivitamin (Daily Multi-Vitamin) tablet Active 1 {tbl} PO DAILY June 17, 2018 12:00am Start: 06-17-2018 take 1 tablet by mili th once daily Multivitamin (Daily Multi-Vitamin) tablet Active 1 TABLET PO DAILY June 16, 2018 11:00pm Start: 06-17-2018 take 1 tablet by mili th once daily Multivitamin (Daily Multi-Vitamin) tablet Active 1 TABLET PO DAILY June 17, 2018 12:00am tamsulosin hydrochloride 0.4 mg oral capsule (8 sources) alpha-Adrenergic Sangita Start: 06-18-2019 take 1 capsule by mouth once daily Tamsulosin (Flomax) 0.4 mg capsule Active 0.4 mg PO DAILY June 18, 2019 12:00am Completed/Discontinued Medications Medication Drug Class(es) Dates Sig (Normalized) Sig (Original) acetaminophen 500 mg oral tablet (16 sources) Start: 03-14-2021 End: 05-29-2022 take 1000 mg by mouth every eight hours Acetaminophen Discontinued 1000 MG PO EVERY 8 HOURS 90 March 14, 2021 12:00am May 29, 2022 9:54am Start: 01-10-2021 End: 05-29-2022 take 2 tablets by mouth every eight hours Acetaminophen 500 mg Tablet Discontinued 1000 mg PO EVERY 8 HOURS 90 0 March 14, 2021 1:00am May 29, 2022 10:54am Start: 01-10-2021 End: 03-14-2021 Acetaminophen Discontinued 1 000 MG PO EVERY 8 HOURS 90 January 09, 2021 11:00pm March 14, 2021 2:03pm 2 po q 8hr acetaminophen 325 mg / HYDROcodone bitartrate 5 mg oral tablet (2 sources) Opioid Agonist Start: 02-06-2024 End: 07-14-2024 Hydrocodone-Acetaminophen 5-325 mg tablet Discontinued 1 {tbl} PO EVERY 6 HOURS 28 7 0 February 06, 2024 July 14, 2024 9:18am Spondylosis of lumbar spine Spondylosis without myelopathy or radiculopathy, lumbar region aspirin 81 mg delayed release oral tablet (16 sources) Platelet Aggregation Inhibitor, Nonsteroidal Anti-inflammatory Drug Start: 06-18-2019 End: 05-18-2020 Aspirin (Adult Low Dose Aspirin) 81 mg tablet,delayed release (DR/EC) Discontinued 81 mg PO daily 90 3 June 18, 2019 12:00am May 18, 2020 10:51am Start: 07-28-2015 End: 06-18-2019 take 1 tablet by mouth once daily Aspirin 325 MG tablet Discontinued 325 mg PO DAILY@0800 July 28, 2015 12:00am June 18, 2019 10:38am docosahexaenoic acid 144 mg / eicosapentaenoic acid 216 mg / vitamin e 2 unt oral capsule (8 sources) Start: 07-28-2015 End: 06-18-2017 take 1 capsule by mouth once daily Zdjse-4h-Ahj-Epa-Fish Oil 1 EACH capsule Discontinued 1 NMA PO DAILY July 28, 2015 12:00am June 18, 2017 9:10am Start: 07-28-2015 End: 06-18-2017 Kradi-7s-Kgg-Epa-Fish Oil Di scontinued 1 EACH PO DAILY July 27, 2015 11:00pm June 18, 2017 8:10am fluorouracil 50 mg/ml topical cream (8 sources) Nucleoside Metabolic Inhibitor Start: 05-18-2020 End: 09-13-2020 Fluorouracil 5 % cream Discontinued 1 NMA TOPICAL TWICE A DAY May 18, 2020 1:00am September 13, 2020 9:52am methylPREDNISolone 4 mg oral tablet (5 sources) Corticosteroid Start: 02-14-2023 End: 02-20-2023 take 1 tablet by mouth once Methylprednisolone (Medrol (Eric)) 4 mg tablets,dose pack Discontinued 4 mg PO per package directions 21 6 0 February 14, 2023 1:00am February 19, 2023 1:00am February 20, 2023 1:05am 24 hr metoprolol succinate 25 mg extended release oral tablet (20 sources) beta-Adrenergic Sangita Start: 06-18-2019 End: 06-25-2024 take 1 tablet by mouth once daily Metoprolol Succinate 25 mg tablet extended release 24 hr Discontinued 25 mg PO DAILY 90 3 May 24, 2023 12:02pm June 25, 2024 3:17pm Start: 07-17-2014 End: 06-18-2019 take 1 tablet by mouth once daily Metoprolol Tartrate 25 mg tablet Discontinued 25 mg PO DAILY 90 3 June 04, 2019 5:36pm June 18, 2019 10:40am Multivitamin With Folic Acid (6 sources) Start: 07-28-2015 End: 06-18-2017 take 1 tablet by mouth once daily Multivitamin With Folic Acid Discontinued 1 TABLET PO DAILY July 27, 2015 11:00pm June 18, 2017 8:10am Start: 07-28-2015 End: 06-18-2017 take 1 tablet by mouth once daily Multivitamin With Folic Acid Discontinued 1 TABLET PO DAILY July 28, 2015 12:00am June 18, 2017 9:10am Multivitamin With Folic Acid 1 TABLET tablet (2 sources) Start: 07-28-2015 End: 06-18-2017 take 1 tablet by mouth once daily Multivitamin With Folic Acid 1 TABLET tablet Discontinued 1 {tbl} PO DAILY July 28, 2015 12:00am June 18, 2017 9:10am oxyCODONE hydrochloride 5 mg oral tablet (8 sources) Opioid Agonist Start: 03-14-2021 End: 06-13-2021 take 5-10 mg by mouth every four hours as needed for pain Oxycodone 5 mg Tablet Discontinued 5 - 10 mg PO EVERY 4 HOURS NEEDED as needed for Pain Score 4-10 84 7 0 March 14, 2021 June 13, 2021 11:12am Status post total knee replacement Presence of right artificial knee joint Red Huerta (8 sources) Start: 12-22-2020 End: 05-29-2022 Red Huerta Discontinued 1 NMA SL/PO DAILY December 22, 2020 12:00am May 29, 2022 10:55am Start: 12-22-2020 End: 05-29-2022 Red Huerta Discontinued 1 PAC KET SL/PO DAILY December 21, 2020 11:00pm May 29, 2022 9:55am Start: 12-22-2020 End: 05-29-2022 Red Huerta Discontinued 1 PAC KET SL/PO DAILY December 22, 2020 12:00am May 29, 2022 10:55am Start: 12-22-2020 Red Huerta Acti ve 1 PACKET SL/PO DAILY December 22, 2020 12:00am sertraline 25 mg oral tablet (8 sources) Serotonin Reuptake Inhibitor Start: 05-17-2020 End: 01-15-2024 take 1 tablet by mouth once daily Sertraline 25 mg tablet Discontinued 25 mg PO DAILY May 17, 2020 1:00am January 15, 2024 9:04am sulfamethoxazole 800 mg / trimethoprim 160 mg oral tablet (5 sources) Dihydrofolate Reductase Inhibitor Antibacterial, Sulfonamide Antimicrobial Start: 02-14-2023 End: 02-21-2023 Sulfamethoxazole- Trimethoprim (Bactrim Ds) 800-160 mg tablet Discontinued 1 {tbl} PO Q12H 14 7 0 February 14, 2023 1:00am February 20, 2023 1:00am February 21, 2023 1:05am Problems Active Problems Problem Classification Problem Date Documented Da te Episodic/Chronic Cardiac dysrhythmias (20 sources) Paroxysmal atrial fibrillation; Translations: [Paroxysmal atrial fibrillation] Onset: 06-04-2024 05-29-2022 Chronic Coronary atherosclerosis and other heart disease (12 sources) Non-obstructive atherosclerosis of coronary artery; Translations: [Atherosclerotic heart disease of [place] coronary artery without angina pectoris] 05-27-2019 Chronic Disorders of lipid metabolism (12 sources) Hyperlipidemia; Translations: [Hyperlipidemia, unspecified] 06-06-2020 Chronic Nonspecific chest pain (16 sources) Chest pain on exertion; Translations: [Chest pain, unspecified] 05-24-2022 Episodic Other connective tissue disease (8 sources) History of total knee arthroplasty; Translations: [Presence of unspecified artificial knee joint] 06-10-2021 Chronic Other connective tissue disease (5 sources) Bursitis of olecranon of right elbow; Translations: [Olecranon bursitis, right elbow] 02-14-2023 Episodic Other connective tissue disease (3 sources) Olecranon bursitis, right elbow; Translations: [Olecranon bursitis] 02-14-2023 Episodic Other gastrointestinal disorders (1 source) Dysphagia, unspecified; Translations: [Dysphagia, unspecified] Onset: 10-05-2024 Episodic Other nutritional; endocrine; and metabolic disorders (8 sources) Obesity; Translations: [Obesity, unspecified] 06-10-2021 Chronic Other screening for suspected conditions (not mental disorders or infectious disease) (16 sources) Thallium stress test abnormal; Translations: [Abnormal result of other cardiovascular function study] 05-27-2019 Episodic Residual codes; unclassified (8 sources) Obstructive sleep apnea syndrome; Translations: [Obstructive sleep apnea (adult) (pediatric)] 09-13-2020 Chronic Residual codes; unclassified (7 sources) Postprocedural state finding; Translations: [Presence of other specified functional implants] Onset: 05-16-2022 05-29-2022 Chronic Spondylosis; intervertebral disc disorders; other back problems (3 sources) Lumbar spondylosis; Translations: [Spondylosis without myelopathy or radiculopathy, lumbar region] Onset: 02-07-2024 02-06-2024 Chronic Unclassified (8 sources) Abrasion of right elbow, initial encounter 02-14-2023 Past or Other Problems Problem Classification Problem Date Documented Da te Episodic/Chronic Rehabilitation care; fitting of prostheses; and adjustment of devices (1 source) Encounter for adjustment and management of neurostimulator; Translations: [Encounter for adjustment and management of neurostimulator] Onset: 02-12-2024 Episodic Results Test Name Value Interpretation Reference Range Facility Modified Barium Swallow Stud adina 09-30-2024 Modified Barium Swallow Study [facility] Speech Pathology [address] [place] [address] Modified Barium Swallow Study MR#: [id number] Acct: [id number] Name: ENRICO MUÑOZ Rep #: [id number] : 1940 84 From: Sia Boland M.A., [facility] Modified Barium Swallow Patient Information Study Date: 09/30/24 Study Time: 09:30 Direct Billable Minutes: 91 Total Minutes procedure reportin Diagnosis: Dysphagia R13.10 Referring Physician: Isaak Cruz Reason for Referral: Pt reports intermittent sensation of retention of liquids, pills, and occ foods in upper esophagus w/ accompanying odynophagia ( 3-5/10). PCP recommended MBSS. He denies s/s of aspiration or regurgitation w/ food/drink/meds. Medical History: A fib, Obesity, Lumbar spondylosis, HLD, Nonobstructive atherosclerosis of the coronary artery - See EMR for full PMH. Current Diet Ordered: Regular textures / Thin liquids Dentition: Upper Dentures and Lower Dentures Mental Status: WNL Respiratory Status: Oxygenating on Room Air Penetration-Aspiration Scale Penetration-Aspiration Scale: OBJECTIVE ASSESSMENT OF SWALLOW FUNCTION (QUANTITATIVE ??? PER TRIAL): PENETRATION / ASPIRATION SCALE (AVERY): 1 = does not enter airway 2 = enters airway/above vocal folds/ejected 3 = enters airway/above vocal folds/not ejected 4 = enters airway/contacts vocal folds/ejected 5 = enters airway/contacts vocal folds/not ejected 6 = enters airway/below vocal folds/ejected 7 = enters airway/below vocal folds/not ejected despite effort 8 = enters airway/below vocal folds/no effort VIDEOFLOROSCOPIC SCALE SCORE (AVERY): Grade I = aspiration of material that has penetrated into the laryngeal vestibule, intact cough reflex Grade II = aspiration < 10 % of the bolus, intact cough reflex Grade III = aspiration of < 10 % of the bolus, reduced cough reflex or aspiration of > 10 % of the bolus, intact cough reflex Grade IV = aspiration of > 10 % of the bolus, reduced cough reflex Penetration-Aspiration Scale Score Thin Liquid via teaspoon: Result: 1= does not enter airway Thin Liquid via teaspoon Trial 2: Result: 1= does not enter airway Thin Liquid via large single sip: cup: Result: 1= does not enter airway [place] Thick Liquid via small single sip: cup: Result: 1= does not enter airway Pudding via teaspoon: Result: 1= does not enter airway Comment: Esophageal screen - Mild retention in middle esophagus. 1/2 Cookie: Result: 1= does not enter airway Comment: Esophageal screen - Retention in middle and lower esophagus. Thin Liquid via single sip: straw: Result: 1= does not enter airway Comment: Esophageal screen - Liquid wash somewhat cleared cookie through middle and lower esophagus. An additional sip cleared majority of cookie w/ min retention and retrograde flow of barium in the lower esophagus. Barium Tablet w/ water: Result: 1= does not enter airway Comment: Esophageal screen - Complete clearance. Thin Liquid via sequential sips: cup: Result: 1= does not enter airway Comment: Esophageal screen - Retention in the middle and lower esophagus w/ retrograde flow. (This trial was input out of order. It was provided after Thin liquid via large single sip: cup and before [place] thick liquid via small single sip: cup) Oral Phase Labial Seal: No Labial Escape Tongue Control During Bolus Hold: Cohesive bolus between tongue to palatal seal Bolus Preparation/Masticatio n: Timely and efficient chewing and mashing Bolus Transport/Lingual Motion: Brisk tongue motion Oral Residue: Residue collection on oral structures Pharyngeal Phase Initiation of Pharyngeal Swallow: Bolus head in valleculae Soft Palate Elevation: Trace column of contrast/air between soft palate and pharyngeal wall Laryngeal Elevation: Comp. Superior move thyroid cart w/comp. apprx arytenoid cart-epig pet Anterior Hyoid Excursion: Partial anterior movement Epiglottic Movement: Complete inversion Laryngeal Vestibule Closure at Height of Swallow: Complete; no air/contrast in laryngeal vestibule Pharyngeal Stripping Wave: Present - complete Pharyngoesophageal Segment Opening: Parital distension and partial duration; parital obstruction of flow (trace retention in UES) Tongue Base Retraction: Trace column of contrast between tongue base post. pharyngeal wall Pharyngeal Residue: Trace residue within or on pharyngeal structures Esophageal Phase Esophageal Clearance: Esophageal retention w/ retrograde flow below pharyngoesophageal seg. Diagnosis/Impression Diagnosis: Esophageal dysphagia R13.14 Impression: Oropharyngeal swallow function is grossly WNL. The esophageal phase is primarily marked by... -Retention of sequential sips of thin liquids in the lower esophagus w/ retrograde flow. -Retention of pudding and cookie in the esophagus, which mostly cleared through the LES w/ 1-2 liquid washes. Recommendations Diet: Regu (more content not included)... Normal [facility] Lumbar Spine 2 or 3 Viewson 09-24-2024 Lumbar Spine 2 or 3 Views [facility] Imaging Services [address] [place] [address] Lumbar Spine 2 or 3 Views MR#: [id number] Acct: [id number] Name: ENRICO MUÑOZ Rep #: [id number] : 1940 M 84 From: Adonis De La Rosa DO PCP: Dr. Isaak Cruz MD Status: DEP AMB Study: Lumbar Spine 2 or 3 Views Date of Exam: Exam# [id number] Ordering Dr: Huma Scherer PROCEDURE: LUMBAR SPINE 2 OR 3 VIEWS 09/24/2024 REASON FOR EXAM: LUMBAR DEGENERATIVE DISC DISEASE TECHNIQUE: LUMBAR SPINE 2 OR 3 VIEWS COMPARISON: None. FINDINGS: Vertebrae: Variation in vertebral body height. Superior endplate compression deformity of L1. Discs: Multilevel degenerative loss of disc height and endplate spondylosis. Alignment: Lumbar lordosis with mild, grade 1 retrolisthesis of L1 on L2.. Left convex scoliosis Other: Dense atherosclerosis in the distal abdominal aorta RAD/Lumbar Spine 2 or 3 Views IMPRESSION: Scoliosis and degenerative changes. Reading Location: [facility] CC: Huma Scherer; Dr. 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 [place], [place] [address] OFFICE VISIT Date of Service: 07/14/24 MR#: [id number] Acct: [id number] Name[place]Z [facility] [place]: [id number] : 1940 Provider: Dr. Gilberto Jack MD Age/Sex: 84/M Location: [facility] [place] Status: Signed HPI HPI History of Present Illness Details: Enrico Muñoz is an 84-year-old gentleman who presents for a follow-up visit. He is a gentleman with a history of mild coronary artery disease following a cardiac catheterization in 2015 demonstrating a 50% LAD stenosis circumflex artery with no significant stenosis and right coronary with no significant stenosis. His ejection fraction was also preserved. He had been diagnosed with atrial fibrillation in December 2019 and underwent a DC cardioversion successfully. However appears that he reverted back to atrial fibrillation. His echocardiogram had demonstrated preserved left ventricular systolic function estimated at 65% and no wall motion abnormalities noted. Mild aortic regurgitation was present. From a cardiac standpoint, patient is doing well. He does not have any chest discomfort/heaviness/t ightness. He recently unfortunately had a fall though this was not due to any syncopal episodes. His exercise tolerance is stable for his age. He does not have any worsening symptoms of shortness of breath. He denies any PND. He does not have any orthopnea. He does not have any symptoms of congestive heart failure. He does not have any palpitations that he is aware of. He does sometimes has lightheadedness. This is not new. He does not have any near-syncope or syncope. He does not have any lower extremity edema. He does not have any symptoms of claudication. 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: No Accompanied by: Self Is patient in pain?: No Allergies No Known Allergies Allergy (Verified 07/14/24 09:17) Medications ???Medication ???Instructions ???Recorded ???Confirmed ???Type multivitamin (Daily Multi-Vitamin 1 tab PO DAILY 06/17/18 07/14/24 History tablet) tamsulosin 0.4 mg capsule (Flomax) 0.4 mg PO DAILY 06/18/19 5 History cholecalciferol (vitamin D3) 25 25 mcg PO DAILY 01/15/24 07/14/24 History mcg (1,000 unit) tablet (Vitamin D3) donepezil 10 mg tablet 10 mg PO DAILY 01/15/24 07/14/24 H istory duloxetine 30 mg capsule,delayed 30 mg PO DAILY 01/15/24 07/14/24 H istory release metoprolol succinate 25 mg 25 mg PO DAILY #90 tabs 06/25/24 0 07/14/24 Rx tablet,extended release 24 hr apixaban 5 mg tablet (Eliquis) 5 mg PO BID 07/14/24 07/14/24 Hist ory Have you fallen in the past year?: Yes PFSH Medical History Wears hearing aid Wears partial dentures Wears dentures Wears glasses History of stress test Cardiology follow-up encounter Loss of hearing Depression Arthritis Back pain Former smoker Exertional chest pain Lack of stamina Obesity Nonobstructive atherosclerosis of coronary artery Paroxysmal atrial fibrillation Hyperlipidemia Surgical History Spinal cord stimulator status (05/16/22) History of arthroplasty of right knee Hx of total knee replacement Hx of colonoscopy History of cardioversion (06/06/20) History of left heart catheterization (07/29/15) Family History Father Heart disease chf Brother Heart disease atrial fib Social History Smoking Status: Former smoker how long ago did patient quit smokin years ago alcohol intake: never substance use type: does not use caffeine: Yes Type: coffee Number of servings: 7 ROS Const Const: Negative for fatigue, weakness, headache(s), daytime sleepiness or difficulty sleeping ENT ENT: Negative for headache(s), dizziness or Nosebleed/epistaxis Cardio Chest Pain: No Palpitations: No Edema: None Resp Respiratory: Negative for SOB with activity, SOB at rest, SOB orthopnea SOB lying down or Cough GI GI: Negative nausea, vomiting or heartburn Neuro Neuro: Negative for dizziness, lightheadedness, near syncope, headache(s) or weakness Endo Endo: Negative for fatigue Cardiology Exam Const Appearance: cooperative, healthy appearing, comfortable, no acute distress and well developed Orientation: alert, awake and oriented x3 Head Head: normal to inspection Ears: hearing grossly nor (more content not included)... Normal [facility] Comprehensive Metabolic Prof ilon 05-22-2024 Albumin [Mass/Vol] 3.5 g/dL Normal 3.2-5.0 [facility] Comment on above: Performed By: #### L 500.4050, L500.4100 ####[facility] [address] [place], [address] Albumin/Globulin [Mass ratio] 1.0 {ratio} Normal 0.9-2.4 [facility] Comment on above: Performed By: #### L 500.4050, L500.4100 ####[facility] [address] [place], [address] ALK P 111 U/L Normal 45-117 [facility] Comment on above: Performed By: #### L 500.4050, L500.4100 ####[facility] [address] [place], [address] ALT [Catalytic activity/Vol] 25 U/L Normal 16-61 [facility] Comment on above: Performed By: #### L 500.4050, L500.4100 ####[facility] [address] [place], [address] AST [Catalytic activity/Vol] 23 U/L Normal 15-37 [facility] Comment on above: Performed By: #### L 500.4050, L500.4100 ####[facility] [address] [place], [address] Bilirubin [Mass/Vol] 1.10 mg/dL High 0.20-1.00 [facility] Comment on above: Result Comment: For patients on eltrombopag therapy, use of Dimension [place] TBIL is not recommended. Performed By: #### L 500.4050, L500.4100 ####[facility] [address] [place], [address] BUN/CRE 23.2 RATIO High 10-20 [facility] Comment on above: Performed By: #### L 500.4050, L500.4100 ####[facility] [address] [place], [address] CA,Total 9.2 mg/dL Normal 8.5-10.1 [facility] Comment on above: Performed By: #### L 500.4050, L500.4100 ####[facility] [address] [place], [address] Chloride [Moles/Vol] 106 mmol/L Normal 98-107 [facility] Comment on above: Performed By: #### L 500.4050, L500.4100 ####[facility] [address] [place], [address] CO2 [Moles/Vol] 29.0 mmol/L Normal 21.0-32.0 [facility] Comment on above: Performed By: #### L 500.4050, L500.4100 ####[facility] [address] [place], [address] Creatinine [Mass/Vol] 0.91 mg/dL Normal 0.70-1.30 [facility] Comment on above: Result Comment: The validity of the calculated GFR GFRAA in patients over 70 years has not been determined. Clinical correlation is essential. Performed By: #### L 500.4050, L500.4100 ####[facility] [address] [place], [address] EST GFR - AA 103 mL/min Normal >60 [facility] Comment on above: Result Comment: Afri can Spanish GFR Calc Performed By: #### L 500.4050, L500.4100 ####[facility] [address] [place], [address] GAP 4 Low 5-15 [facility] Comment on above: Performed By: #### L 500.4050, L500.4100 ####[facility] [address] [place], [address] GFR/1.73 sq M.predicted among non-blacks MDRD (S/P/Bld) [Vol rate/Area] 85 mL/min/{1.73_m2} Normal >60 [facility] Comment on above: Result Comment: Non- GFR Calc Performed By: #### L 500.4050, L500.4100 ####[facility] [address] [place], [address] Globulin (S) [Mass/Vol] 3.6 g/dL Normal 2.2-4.2 [facility] Comment on above: Performed By: #### L 500.4050, L500.4100 ####[facility] [address] [place], [address] Glucose [Mass/Vol] 104 mg/dL Normal 74-106 [facility] Comment on above: Result Comment: Fast ing Glucose result from 100 to 125 mg/dL suggests IMPAIRED HOMEOSTASIS per A.D.A. criteria. Performed By: #### L 500.4050, L500.4100 ####[facility] [address] [place], [address] Potassium [Moles/Vol] 4.4 mmol/L Normal 3.5-5.1 [facility] Comment on above: Performed By: #### L 500.4050, L500.4100 ####[facility] [address] [place], [address] Sodium [Moles/Vol] 139 mmol/L Normal 136-145 [facility] Comment on above: Performed By: #### L 500.4050, L500.4100 ####[facility] [address] [place], [address] T PROT 7.1 g/dL Normal 6.4-8.2 [facility] Comment on above: Performed By: #### L 500.4050, L500.4100 ####[facility] [address] [place], [address] Urea nitrogen [Mass/Vol] 21 mg/dL High 7-18 [facility] Comment on above: Performed By: #### L 500.4050, L500.4100 ####[facility] [address] [place], [address] Lipid Profileon 05-22-2024 Cholesterol [Mass/Vol] 199 mg/dL Normal 200 [facility] Comment on above: Result Comment: <200 mg/dL Desirable 200-240 mg/dL Borderline >240 mg/dL High Risk Performed By: #### L 500.4050, L500.4100 ####[facility] [address] [place], [address] Cholesterol in HDL [Mass/Vol] 48 mg/dL Normal [facility] Comment on above: Result Comment: The drugs N-Acetylcysteine and Metamizole may falsely depress this assay. Reference Range HDL <40 mg/dL Low HDL Cholesterol HDL >or= 60 mg/dL High HDL Cholesterol Performed By: #### L 500.4050, L500.4100 ####[facility] [address] [place], [address] Cholesterol in LDL [Mass/Vol] 128 mg/dL Normal 0-130 [facility] Comment on above: Performed By: #### L 500.4050, L500.4100 ####[facility] [address] [place], [address] Cholesterol in VLDL [Mass/Vol] 23 mg/dL Normal 5-40 [facility] Comment on above: Performed By: #### L 500.4050, L500.4100 ####[facility] [address] [place], [address] Triglyceride [Mass/Vol] 115 mg/dL Normal [facility] Comment on above: Result Comment: The drugs N-Acetylcysteine and Metamizole may falsely depress this assay. Serum Triglycerides Reference Interval Normal <150 mg/dL Borderline high 150 - 199 mg/dL High 200 - 499 mg/dL Very High > or = 500 mg/dL Performed By: #### L 500.4050, L500.4100 ####[facility] [address] [place], [address] MR/POSTOP.ANE 02-06-2024 MR/POSTOP[facility] Medical Records Department [address] [place] [address] Anesthesia Postop Eval I 02/06/24 1013 MR#: [id number] Acct: [id number] Name: ENRICO MUÑOZ Rep #: [id number] : 1940 83 From: Yanely Zavaleta CRNA PCP: Dr. Isaak Cruz MD Status:REG SD Y Race: C Location: [place] [address] Anesthesia: Postop Eval I Current Vital Signs Temperature: 97 F Pulse Rate: 66 Blood Pressure: 147/76 Respiratory Rate: 18 Pulse Ox: 100 Oxygen Delivery Method: Simple Mask Oxygen Flow Rate (L/min): 6 Assessment Airway patent: Yes Spontaneous unlabored respirations: Yes Mental status: Awake and Calm nausea: No Vomiting: No Anesthesia Complication: No Fluid Hydration Crystalloid volume administer (ml): 1,000 Total IV fluid infused: 1,000 Progress Note Anesthesia document: Postop Eval 1 completed: Yes 02/06/24 1014 Date Yanely Zavaleta WREATH MACHINE OPERATOR Cosigner Signature: Date CC: Signed Normal [facility] MR/BCUDQUFD1nw 02-06-2024 MR/POSTOPAN2 [facility] Medical Records Department [address] [place] [address] Anesthesia Postop Eval II 02/06/24 1051 MR#: [id number] Acct: [id number] Name: ENRICO MUÑOZ Rep #: [id number] : 1940 83 From: Josue Mar MD PCP: Dr. Isaak Cruz MD Status:REG SDC Y Race: C Location: [place] [address]- Anesthesia Postop Eval I Sum Postop Eval Completion status Anesthesia document: Postop Eval 1 completed: Yes Anesthesia Postop Eval I Summary Anesthesia Postop Eval I Summary: Anesthesia Postop Eval I: Assessment Summary Airway patent Yes 02/06/24 10:14 WREATH MACHINE OPERATOR.SKOBY Spontaneous unlabored Yes 02/06/24 10:14 WREATH MACHINE OPERATOR.SKOBY respirations Mental status Awake,Calm 02/06/24 10:14 WREATH MACHINE OPERATOR.SKOBY nausea No 02/06/24 10:14 WREATH MACHINE OPERATOR.SKOBY Vomiting No 02/06/24 10:14 WREATH MACHINE OPERATOR.SKOBY Anesthesia Postop Eval I: Fluid Summary Crystalloid volume administer 1,000 02/06/24 10:14 WREATH MACHINE OPERATOR.SKOBY (ml) Colloids volume administered ( ml) Blood Product volume administered (ml) Total IV fluid infused 1,000 02/06/24 10:14 WREATH MACHINE OPERATOR.SKOBY Anesthesia Postop Eval I: Summary Notes Anesthesia Complication No 02/06/24 10:14 WREATH MACHINE OPERATOR.SKOBY Anesthesia Complication Comment: Post-operative progress note Anesthesia: Postop Eval II Evaluation Mental status: Awake Pain Level: 0 nausea: No Vomiting: No 02/06/24 1052 Date Josue Mar MD Cosigner Signature: Date CC: Signed Normal [facility] Operative Reporton 4 Operative Report [facility] Medical Records Department [address] [place] [address] Operative Report 02/06/24 0716 MR#: [id number] Acct: [id number] Name: ENRICO MUÑOZ Rep #: [id number] : 1940 83 From: Romie Delgado DO PCP: Dr. Isaak Cruz MD Status:REG [facility] Location: [place] [address] Operative Report (Standard) Operative Information Surgery/Procedure Performed: 1. Explantation of spinal cord stimulator percutaneous leads and generator/battery 2. T9-10 partial bilateral laminectomies. 3. Dorsal column stimulator paddle lead placement. 4. Implantation of new spinal cord stimulator generator/battery 5. Neuromonitoring bilateral upper and bilateral lower extremities 6. One hour of complex programming postoperatively. Surgeon: Romie Delgado Date of Procedure: 02/06/24 Procedure Start Time: 07:59 Procedure Stop Time: 09:48 Pre-Operative Diagnosis: 1. Lumbar stenosis, spondylosis. 2. Chronic back pain 3. 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 Lumbar stenosis, spondylosis 2. Chronic back pain 3. 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 The patient has opted for treatment of operative intervention, understanding the risks to include, damage to nerves, arteries and veins, possibility of continued pain, paralysis, need for additional surgery, pulmonary embolism, heart attack, stroke, or . DESCRIPTION OF PROCEDURE: The patient was identified in the preoperative holding area. There, the patient received the preoperative IV antibotics and then transferred to the operating suite. Once in the operating suite, after general endotracheal anesthesia was established, the patient was transferred to the [place] operating table in the prone position. All bony prominences were padded accordingly. The thoracolumbar spine was prepped and draped in standard surgical fashion. An incision was made over the previous spinal cord stimulator percutaneous leads in the right lumbar region and dissection was performed down to identify the implanted leads and anchors. The previous spinal cord stimulator generator/battery site located over the right posterior iliolumbar region was also reopened with a 15 blade scalpel and dissection was performed down to the level of the battery and the battery was exposed. The previous spinal cord stimulator percutaneous wires were then disconnected from the battery and removed. The previous spinal cord stimulator generator/battery was also explanted. An incision was made over the thoracolumbar spine. An incision was centered over the T9-10 interlaminar space, taken down to the thoracic fascia. It was then divided and subperiosteal dissection was taken down to the level of the facet joints. Partial bilateral laminectomies were performed at the T9-10 interspace, with part of the inferior lamina of T9, and superior lamina of T10. At this point the paddle lead was placed with the tip at the level of T8. It was then anchored to the fascia using standard anchors with silk suture. Wires from the stimulator were then passed subcutaneously with a passing device to the battery pocket and then connected to a new generator battery. All 3 incisions were then irrigated and closed with #1 vicryl for the fascia, 2-0 vicryl for subcutaneous, and 2-0 nylon for skin. Sterile dressing was applied with 4 x 4, ABD, and tape. Sponge, instrument, and needle counts were correct at the end of the case. Neurophysiologic monitoring was maintained at baseline throughout the duration of the case. The patient was extubated, taken to PACU without incident. Then one hour was spent with complex programming when the patient recovered Surgical Findings: See op report Body Bumper queen producer: Yes Grey Iron Molder: Aldo Pena Tasks completed by assistant professor of drama: Closing and Retracting Complications Complications: No Admit VTE Documentation VTE Present on Admission: No 02/06/24 5621 Cosigner Signature (if applicable): CC: Dr. Romie Delgado DO; Dr. Isaak Cruz MD Signed Normal [facility] Thoracic Spine 2 Viewson Thoracic Spine 2 Views [facility] Imaging Services [address] [place], [place] [id number] Thoracic Spine 2 Views MR#: [id number] Acct: [id number] Name: ENRICO MUÑOZ Rep #: [id number] : 1940 M 83 From: Ranjeet beltran MD PCP: Dr. Isaak Cruz MD Status: ADM [facility] Study: Thoracic Spine 2 Views Date of Exam: 02/06/24 Exam# [id number] Ordering Dr: Romie Delgado DO [id number] PROCEDURE: Fluoroscopic services provided for implantation of spinal cord similar DATE OF EXAMINATION: February 06, 2024. INDICATION: Male, 83 years old. Chronic back pain. FLUOROSCOPY TIME (if supplied): (34 seconds) minutes/seconds. 10.91 mGy. 4 images were submitted. RAD/Thoracic Spine 2 Views IMPRESSION: Intraoperative fluoroscopic services provided for implantation of a spinal cord stimulator device. Electronically Signed: Ranjeet Ley MD at 10:00 EDT Reading Location ID and State: [facility] / [place] , Service support , CC: Dr. Romie Delgado DO; Dr. Isaak Cruz MD Media Production Operator: Signed Normal [facility] MRSA/SAID NASAL SCREENon MRSA+SAID SCRN Reason for Exam: PRE-OP MRSA MRSA Negative S. AUREUS S. aureus Negative Normal [facility] Comment on above: Performed By: #### L 300.4310, L500.2500, L300.3900, M100.651, L100.0100 #### [facility] [address] [place], [place], [id number] Basic Metabolic Profile (BMP )on 01-22-2024 BUN/CRE 20.7 RATIO High 01-25 [facility] Comment on above: Performed By: #### L 300.4310, L500.2500, L300.3900, M100.651, L100.0100 #### [facility] [address] [place], [address] CA,Total 9.3 mg/dL Normal 8.5-10.1 [facility] Comment on above: Performed By: #### L 300.4310, L500.2500, L300.3900, M100.651, L100.0100 #### [facility] [address] [place], [address] Chloride [Moles/Vol] 107 mmol/L Normal 98-107 [facility] Comment on above: Performed By: #### L 300.4310, L500.2500, L300.3900, M100.651, L100.0100 #### [facility] [address] [place], [address] CO2 [Moles/Vol] 29.0 mmol/L Normal 21.0-32.0 [facility] Comment on above: Performed By: #### L 300.4310, L500.2500, L300.3900, M100.651, L100.0100 #### [facility] [address] [place], [address] Creatinine [Mass/Vol] 0.92 mg/dL Normal 0.70-1.30 [facility] Comment on above: Result Comment: The validity of the calculated GFR GFRAA in patients over 70 years has not been determined. Clinical correlation is essential. Performed By: #### L 300.4310, L500.2500, L300.3900, M100.651, L100.0100 #### [facility] [address] [place], [address] EST GFR - AA 102 mL/min Normal >60 [facility] Comment on above: Result Comment: Afri can Spanish GFR Calc Performed By: #### L 300.4310, L500.2500, L300.3900, M100.651, L100.0100 #### [facility] [address] [place], [address] GAP 4 Low 5-15 [facility] Comment on above: Performed By: #### L 300.4310, L500.2500, L300.3900, M100.651, L100.0100 #### [facility] [address] [place], [address] GFR/1.73 sq M.predicted among non-blacks MDRD (S/P/Bld) [Vol rate/Area] 84 mL/min/{1.73_m2} Normal >60 [facility] Comment on above: Result Comment: Non- GFR Calc Performed By: #### L 300.4310, L500.2500, L300.3900, M100.651, L100.0100 #### [facility] [address] [place], [address] Glucose [Mass/Vol] 110 mg/dL High 74-106 [facility] Comment on above: Result Comment: Fast ing Glucose result from 100 to 125 mg/dL suggests IMPAIRED HOMEOSTASIS per A.D.A. criteria. Performed By: #### L 300.4310, L500.2500, L300.3900, M100.651, L100.0100 #### [facility] [address] [place], [address] Potassium [Moles/Vol] 4.1 mmol/L Normal 3.5-5.1 [facility] Comment on above: Performed By: #### L 300.4310, L500.2500, L300.3900, M100.651, L100.0100 #### [facility] [address] [place], [address] Sodium [Moles/Vol] 140 mmol/L Normal 136-145 [facility] Comment on above: Performed By: #### L 300.4310, L500.2500, L300.3900, M100.651, L100.0100 #### [facility] [address] [place], [address] Urea nitrogen [Mass/Vol] 19 mg/dL High 7-18 [facility] Comment on above: Performed By: #### L 300.4310, L500.2500, L300.3900, M100.651, L100.0100 #### [facility] [address] [place], [address] CBC W/Diff, Automatedon 10-1 Absolute Lymph 1.58 X10 3/uL Normal 0.83-4.51 [facility] Comment on above: Performed By: #### L 300.4310, L500.2500, L300.3900, M100.651, L100.0100 #### [facility] [address] [place], [address] Absolute Neut 3.3 X10 3/uL Normal 2.0-7.7 [facility] Comment on above: Performed By: #### L 300.4310, L500.2500, L300.3900, M100.651, L100.0100 #### [facility] [address] [place], [address] Basophils/100 WBC (Bld) 0.7 % Normal 0-1 [facility] Comment on above: Performed By: #### L 300.4310, L500.2500, L300.3900, M100.651, L100.0100 #### [facility] [address] [place], [address] Eosinophils/100 WBC (Bld) 3.0 % Normal 0-5 [facility] Comment on above: Performed By: #### L 300.4310, L500.2500, L300.3900, M100.651, L100.0100 #### [facility] [address] [place], [address] Erythrocyte distribution width (RBC) [Ratio] 12.8 % Normal 11.6-14.6 [facility] Comment on above: Performed By: #### L 300.4310, L500.2500, L300.3900, M100.651, L100.0100 #### [facility] [address] [place], [address] Hematocrit (Bld) [Volume fraction] 41.8 % Normal 40-54 [facility] Comment on above: Performed By: #### L 300.4310, L500.2500, L300.3900, M100.651, L100.0100 #### [facility] [address] [place], [address] Hemoglobin (Bld) [Mass/Vol] 13.7 g/dL Normal 13.0-16.5 [facility] Comment on above: Performed By: #### L 300.4310, L500.2500, L300.3900, M100.651, L100.0100 #### [facility] [address] [place], [address] IG% 0.200 Normal 0.0-0.9 [facility] Comment on above: Result Comment: IG% - Immature Granulocytes (promyelocytes, myelocytes and metamyelocytes) > 1% indicates that a LEFT SHIFT is Present. Performed By: #### L 300.4310, L500.2500, L300.3900, M100.651, L100.0100 #### [facility] [address] [place], [address] Lymphocytes/100 WBC (Bld) 28.1 % Normal 19-41 [facility] Comment on above: Performed By: #### L 300.4310, L500.2500, L300.3900, M100.651, L100.0100 #### [facility] [address] [place], [address] MCH (RBC) [Entitic mass] 29.3 pg Normal 27.0-32.0 [facility] Comment on above: Performed By: #### L 300.4310, L500.2500, L300.3900, M100.651, L100.0100 #### [facility] [address] [place], [address] MCHC (RBC) [Mass/Vol] 32.8 g/dL Normal 32-36 [facility] Comment on above: Performed By: #### L 300.4310, L500.2500, L300.3900, M100.651, L100.0100 #### [facility] [address] [place], [address] MCV (RBC) [Entitic vol] 89.5 fL Normal 80-94 [facility] Comment on above: Performed By: #### L 300.4310, L500.2500, L300.3900, M100.651, L100.0100 #### [facility] [address] [place], [address] Monocytes/100 WBC (Bld) 9.1 % Normal 0-10 [facility] Comment on above: Performed By: #### L 300.4310, L500.2500, L300.3900, M100.651, L100.0100 #### [facility] [address] [place], [address] Neutrophils/100 WBC (Bld) 58.9 % Normal 47-70 [facility] Comment on above: Performed By: #### L 300.4310, L500.2500, L300.3900, M100.651, L100.0100 #### [facility] [address] [place], [address] Nucleated RBC (Bld) [#/Vol] 0 10*3/uL Normal 0-5 [facility] Comment on above: Performed By: #### L 300.4310, L500.2500, L300.3900, M100.651, L100.0100 #### [facility] [address] [place], [address] Platelet mean volume (Bld) [Entitic vol] 9.7 fL Normal 6.2-12.0 [facility] Comment on above: Performed By: #### L 300.4310, L500.2500, L300.3900, M100.651, L100.0100 #### [facility] [address] [place], [address] Platelets (Bld) [#/Vol] 239 10*3/uL Normal 150-450 [facility] Comment on above: Performed By: #### L 300.4310, L500.2500, L300.3900, M100.651, L100.0100 #### [facility] [address] [place], [address] RBC (Bld) [#/Vol] 4.67 10*6/uL Normal 4.6-6.2 [facility] Comment on above: Performed By: #### L 300.4310, L500.2500, L300.3900, M100.651, L100.0100 #### [facility] [address] [place], [address] RDW SD 41.8 fl Normal 35.1-43.9 [facility] Comment on above: Performed By: #### L 300.4310, L500.2500, L300.3900, M100.651, L100.0100 #### [facility] [address] [place], [address] WBC (Bld) [#/Vol] 5.6 10*3/uL Normal 4.4-11.0 [facility] Comment on above: Performed By: #### L 300.4310, L500.2500, L300.3900, M100.651, L100.0100 #### [facility] [address] [place], [address] Chest PA and Lateralon 01-21 Chest PA and Lateral [facility] Imaging Services [address] [place] [address] Chest PA and Lateral MR#: [id number] Acct: [id number] Name: ENRICO MUÑOZ Rep #: [id number] : 1940 M 83 From: Khanh Cruz MD PCP: Dr. Isaak Cruz MD Status: PRE [facility] Study: Chest PA and Lateral Date of Exam: 01/22/24 Exam# [id number] Ordering Dr: Romie Delgado DO [id number] EXAM: XR CHEST, 2 VIEWS CLINICAL INDICATION: PRE-OP TECHNIQUE: Frontal and lateral views of the chest. COMPARISON: Two-view chest 12/26/2020 FINDINGS: LUNGS AND PLEURAL SPACES: Unremarkable. No consolidation or edema. No pneumothorax. No effusion. HEART: Unremarkable. Cardiac silhouette not enlarged. MEDIASTINUM: Central airways and mediastinal contour are unremarkable. BONES/JOINTS: Degenerative changes of the spine. No acute fracture. SOFT TISSUES: Unremarkable. VASCULATURE: Ectasia of the thoracic aorta. TUBES, LINES AND DEVICES: Leads extending into the thoracic spinal canal. RAD/Chest PA and Lateral IMPRESSION: No acute findings in the chest. Electronically Signed: Khanh Cruz MD at 7:54 EDT , CC: Dr. Romie Delgado DO; Dr. Isaak Cruz MD Media Production Operator: Signed Normal [facility] Partial Thromboplast Timeon 01-22-2024 aPTT Coag (Bld) [Time] 30.5 s Normal 24.1-36.2 [facility] Comment on above: Performed By: #### L 300.4310, L500.2500, L300.3900, M100.651, L100.0100 #### [facility] [address] [place], [address] Prothrombin Time w/INRon INR Coag (PPP) [Relative time] 1.2 {INR} Normal [facility] Comment on above: Performed By: #### L 300.4310, L500.2500, L300.3900, M100.651, L100.0100 #### [facility] [address] [place], [address] PT Coag (PPP) [Time] 15.2 s High 11.7-14.9 [facility] Comment on above: Performed By: #### L 300.4310, L500.2500, L300.3900, M100.651, L100.0100 #### [facility] [address] [place], [address] CBC W/Diff, Automatedon 11-06 Absolute Lymph 1.95 X10 3/uL Normal 0.83-4.51 [facility] Comment on above: Performed By: #### L 100.0100, L500.4050, L500.4100 ####[facility] [address] [place], [address] Absolute Neut 3.1 X10 3/uL Normal 2.0-7.7 [facility] Comment on above: Performed By: #### L 100.0100, L500.4050, L500.4100 ####[facility] [address] [place], [address] Basophils/100 WBC (Bld) 1.0 % Normal 0-1 [facility] Comment on above: Performed By: #### L 100.0100, L500.4050, L500.4100 ####[facility] [address] [place], [address] Eosinophils/100 WBC (Bld) 4.5 % Normal 0-5 [facility] Comment on above: Performed By: #### L 100.0100, L500.4050, L500.4100 ####[facility] [address] [place], [address] Erythrocyte distribution width (RBC) [Ratio] 12.6 % Normal 11.6-14.6 [facility] Comment on above: Performed By: #### L 100.0100, L500.4050, L500.4100 ####[facility] [address] [place], [address] Hematocrit (Bld) [Volume fraction] 42.1 % Normal 40-54 [facility] Comment on above: Performed By: #### L 100.0100, L500.4050, L500.4100 ####[facility] [address] [place], [address] Hemoglobin (Bld) [Mass/Vol] 13.8 g/dL Normal 13.0-16.5 [facility] Comment on above: Performed By: #### L 100.0100, L500.4050, L500.4100 ####[facility] [address] [place], [address] IG% 0.300 Normal 0.0-0.9 [facility] Comment on above: Result Comment: IG% - Immature Granulocytes (promyelocytes, myelocytes and metamyelocytes) > 1% indicates that a LEFT SHIFT is Present. Performed By: #### L 100.0100, L500.4050, L500.4100 ####[facility] [address] [place], [address] Lymphocytes/100 WBC (Bld) 32.6 % Normal 19-41 [facility] Comment on above: Performed By: #### L 100.0100, L500.4050, L500.4100 ####[facility] [address] [place], [address] MCH (RBC) [Entitic mass] 29.0 pg Normal 27.0-32.0 [facility] Comment on above: Performed By: #### L 100.0100, L500.4050, L500.4100 ####[facility] [address] [place], [address] MCHC (RBC) [Mass/Vol] 32.8 g/dL Normal 32-36 [facility] Comment on above: Performed By: #### L 100.0100, L500.4050, L500.4100 ####[facility] [address] [place], [address] MCV (RBC) [Entitic vol] 88.4 fL Normal 80-94 [facility] Comment on above: Performed By: #### L 100.0100, L500.4050, L500.4100 ####[facility] [address] [place], [address] Monocytes/100 WBC (Bld) 9.5 % Normal 0-10 [facility] Comment on above: Performed By: #### L 100.0100, L500.4050, L500.4100 ####[facility] [address] [place], [address] Neutrophils/100 WBC (Bld) 52.1 % Normal 47-70 [facility] Comment on above: Performed By: #### L 100.0100, L500.4050, L500.4100 ####[facility] [address] [place], [address] Nucleated RBC (Bld) [#/Vol] 0 10*3/uL Normal 0-5 [facility] Comment on above: Performed By: #### L 100.0100, L500.4050, L500.4100 ####[facility] [address] [place], [address] Platelet mean volume (Bld) [Entitic vol] 9.7 fL Normal 6.2-12.0 [facility] Comment on above: Performed By: #### L 100.0100, L500.4050, L500.4100 ####[facility] [address] [place], [address] Platelets (Bld) [#/Vol] 243 10*3/uL Normal 150-450 [facility] Comment on above: Performed By: #### L 100.0100, L500.4050, L500.4100 ####[facility] [address] [place], [address] RBC (Bld) [#/Vol] 4.76 10*6/uL Normal 4.6-6.2 [facility] Comment on above: Performed By: #### L 100.0100, L500.4050, L500.4100 ####[facility] [address] [place], [address] RDW SD 40.8 fl Normal 35.1-43.9 [facility] Comment on above: Performed By: #### L 100.0100, L500.4050, L500.4100 ####[facility] [address] [place], [address] WBC (Bld) [#/Vol] 6.0 10*3/uL Normal 4.4-11.0 [facility] Comment on above: Performed By: #### L 100.0100, L500.4050, L500.4100 ####[facility] [address] [place], [address] Comprehensive Metabolic Prof ilon 11-20-2023 Albumin [Mass/Vol] 3.6 g/dL Normal 3.2-5.0 [facility] Comment on above: Performed By: #### L 100.0100, L500.4050, L500.4100 ####[facility] [address] [place], [address] Albumin/Globulin [Mass ratio] 1.0 {ratio} Normal 0.9-2.4 [facility] Comment on above: Performed By: #### L 100.0100, L500.4050, L500.4100 ####[facility] [address] [place], [address] ALK P 103 U/L Normal 45-117 [facility] Comment on above: Performed By: #### L 100.0100, L500.4050, L500.4100 ####[facility] [address] [place], [address] ALT [Catalytic activity/Vol] 31 U/L Normal 16-61 [facility] Comment on above: Performed By: #### L 100.0100, L500.4050, L500.4100 ####[facility] [address] [place], [address] AST [Catalytic activity/Vol] 25 U/L Normal 15-37 [facility] Comment on above: Performed By: #### L 100.0100, L500.4050, L500.4100 ####[facility] [address] [place], [address] Bilirubin [Mass/Vol] 1.50 mg/dL High 0.20-1.00 [facility] Comment on above: Result Comment: For patients on eltrombopag therapy, use of Dimension [place] TBIL is not recommended. Performed By: #### L 100.0100, L500.4050, L500.4100 ####[facility] [address] [place], [address] BUN/CRE 24.9 RATIO High 10-20 [facility] Comment on above: Performed By: #### L 100.0100, L500.4050, L500.4100 ####[facility] [address] [place], [address] CA,Total 9.2 mg/dL Normal 8.5-10.1 [facility] Comment on above: Performed By: #### L 100.0100, L500.4050, L500.4100 ####[facility] [address] [place], [address] Chloride [Moles/Vol] 106 mmol/L Normal 98-107 [facility] Comment on above: Performed By: #### L 100.0100, L500.4050, L500.4100 ####[facility] [address] [place], [address] CO2 [Moles/Vol] 28.0 mmol/L Normal 21.0-32.0 [facility] Comment on above: Performed By: #### L 100.0100, L500.4050, L500.4100 ####[facility] [address] [place], [address] Creatinine [Mass/Vol] 0.96 mg/dL Normal 0.70-1.30 [facility] Comment on above: Result Comment: The validity of the calculated GFR GFRAA in patients over 70 years has not been determined. Clinical correlation is essential. Performed By: #### L 100.0100, L500.4050, L500.4100 ####[facility] [address] [place], [address] EST GFR - AA 96 mL/min Normal >60 [facility] Comment on above: Result Comment: Afri can Spanish GFR Calc Performed By: #### L 100.0100, L500.4050, L500.4100 ####[facility] [address] [place], [address] GAP 4 Low 5-15 [facility] Comment on above: Performed By: #### L 100.0100, L500.4050, L500.4100 ####[facility] [address] [place], [address] GFR/1.73 sq M.predicted among non-blacks MDRD (S/P/Bld) [Vol rate/Area] 79 mL/min/{1.73_m2} Normal >60 [facility] Comment on above: Result Comment: Non- GFR Calc Performed By: #### L 100.0100, L500.4050, L500.4100 ####[facility] [address] [place], [address] Globulin (S) [Mass/Vol] 3.5 g/dL Normal 2.2-4.2 [facility] Comment on above: Performed By: #### L 100.0100, L500.4050, L500.4100 ####[facility] [address] [place], [address] Glucose [Mass/Vol] 107 mg/dL High 74-106 [facility] Comment on above: Result Comment: Fast ing Glucose result from 100 to 125 mg/dL suggests IMPAIRED HOMEOSTASIS per A.D.A. criteria. Performed By: #### L 100.0100, L500.4050, L500.4100 ####[facility] [address] [place], [address] Potassium [Moles/Vol] 4.5 mmol/L Normal 3.5-5.1 [facility] Comment on above: Performed By: #### L 100.0100, L500.4050, L500.4100 ####[facility] [address] [place], [address] Sodium [Moles/Vol] 138 mmol/L Normal 136-145 [facility] Comment on above: Performed By: #### L 100.0100, L500.4050, L500.4100 ####[facility] [address] [place], [address] T PROT 7.1 g/dL Normal 6.4-8.2 [facility] Comment on above: Performed By: #### L 100.0100, L500.4050, L500.4100 ####[facility] [address] [place], [address] Urea nitrogen [Mass/Vol] 24 mg/dL High 7-18 [facility] Comment on above: Performed By: #### L 100.0100, L500.4050, L500.4100 ####[facility] [address] [place], [address] Lipid Profileon 11-20-2023 Cholesterol [Mass/Vol] 172 mg/dL Normal 200 [facility] Comment on above: Result Comment: <200 mg/dL Desirable 200-240 mg/dL Borderline >240 mg/dL High Risk Performed By: #### L 100.0100, L500.4050, L500.4100 ####[facility] [address] [place], [address] Cholesterol in HDL [Mass/Vol] 45 mg/dL Normal [facility] Comment on above: Result Comment: The drugs N-Acetylcysteine and Metamizole may falsely depress this assay. Reference Range HDL <40 mg/dL Low HDL Cholesterol HDL >or= 60 mg/dL High HDL Cholesterol Performed By: #### L 100.0100, L500.4050, L500.4100 ####[facility] [address] [place], [address] Cholesterol in LDL [Mass/Vol] 103 mg/dL Normal 0-130 [facility] Comment on above: Performed By: #### L 100.0100, L500.4050, L500.4100 ####[facility] [address] [place], [address] Cholesterol in VLDL [Mass/Vol] 24 mg/dL Normal 5-40 [facility] Comment on above: Performed By: #### L 100.0100, L500.4050, L500.4100 ####[facility] [address] [place], [address] Triglyceride [Mass/Vol] 121 mg/dL Normal [facility] Comment on above: Result Comment: The drugs N-Acetylcysteine and Metamizole may falsely depress this assay. Serum Triglycerides Reference Interval Normal <150 mg/dL Borderline high 150 - 199 mg/dL High 200 - 499 mg/dL Very High > or = 500 mg/dL Performed By: #### L 100.0100, L500.4050, L500.4100 ####[facility] [address] [place], [place], [id number] Absolute lymphocyte countOrd ered By: Dee Dee Grimm on 05-27-2023 Lymphocytes Auto (Unsp spec) [#/Vol] 1.98 10*3/uL 0.83-4.51 [facility] Automated lymphocyte count a s percentage of total leukocytesOrdered By: Dee Dee Grimm on 05-27-2023 Lymphocytes/100 WBC Auto (Unsp spec) 26.1 % 19-41 [facility] Basophil percentageOrdered B y: Dee Dee Grimm on 05-27-2023 Basophils/100 WBC (Bld) 0.7 % 0-1 [facility] Eosinophils/100 WBC (Bld) 2.2 % 0-5 [facility] Hemoglobin (Bld) [Mass/Vol] 14.0 g/dL 13.0-16.5 [facility] Monocytes/100 WBC (Bld) 9.3 % 0-10 [facility] Neutrophils (Bld) [#/Vol] 4.7 10*3/uL 2.0-7.7 [facility] Neutrophils/100 WBC (Bld) 61.6 % 47-70 [facility] WBC (Bld) [#/Vol] 7.6 10*3/uL 4.4-11.0 [facility] Determination of erythrocyte mean corpuscular volume (MCV)Ordered By: Dee Dee Grimm on 05-27-2023 MCV (RBC) [Entitic vol] 88.2 fL 80-94 [facility] Erythrocyte distribution wid th ratioOrdered By: Dee Dee Grimm on 05-27-2023 Erythrocyte distribution width (RBC) [Ratio] 13.1 % 11.6-14.6 [facility] Erythrocyte distribution wid th standard deviationOrdered By: Dee Dee Grimm on 05-27-2023 Erythrocyte distribution width (RBC) [Entitic vol] 41.9 fL 35.1-43.9 [facility] Hematocrit Auto (Bld) [Volum e fraction]Ordered By: Dee Dee Grimm on 05-27-2023 Hematocrit (Bld) [Volume fraction] 43.9 % 40-54 [facility] Immature granulocytes/100 WB C Auto (Bld)Ordered By: Dee Dee Grimm on 05-27-2023 Immature granulocytes/100 WBC (Bld) 0.100 % 0.0-0.9 [facility] Comment on above: IG% - Immature Granu locytes (promyelocytes, myelocytes and metamyelocytes) > 1% indicates that a LEFT SHIFT is Present. Laboratory - Hematology and Cell countsOrdered By: Dee Dee Grimm on 05-27-2023 MCH (RBC) [Entitic mass] 28.1 pg 27.0-32.0 [facility] MCHC (RBC) [Mass/Vol] 31.9 g/dL 32-36 [facility] Nucleated RBC/100 WBC (Bld) [Ratio] 0 % 0-5 [facility] Platelet mean volume (Bld) [Entitic vol] 11.0 fL 6.2-12.0 [facility] Platelets (Bld) [#/Vol] 258 10*3/uL 150-450 [facility] RBC Auto (Bld) [#/Vol]Ordere d By: Dee Dee Grimm on 05-27-2023 RBC (Bld) [#/Vol] 4.98 10*6/uL 4.6-6.2 [facility] Basophil percentageOrdered B y: Isaak Cruz on 05-23-2023 Bilirubin [Mass/Vol] 1.20 mg/dL 0.20-1.00 [facility] Comment on above: For patients on eltr ombopag therapy, use of Dimension [place] TBIL is not recommended. Chloride [Moles/Vol] 109 mmol/L 98-107 [facility] Cholesterol [Mass/Vol] 232 mg/dL <200 [facility] Comment on above: <200 mg/dL Desirable 200-240 mg/dL Borderline >240 mg/dL High Risk Glucose [Mass/Vol] 109 mg/dL 74-106 [facility] Comment on above: Fasting Glucose resu lt from 100 to 125 mg/dL suggests IMPAIRED HOMEOSTASIS per A.D.A. criteria. Potassium [Moles/Vol] 4.7 mmol/L 3.5-5.1 [facility] Protein [Mass/Vol] 7.3 g/dL 6.4-8.2 [facility] Sodium [Moles/Vol] 141 mmol/L 136-145 [facility] Triglyceride [Mass/Vol] 123 mg/dL <199 [facility] Comment on above: The drugs N-Acetylcy steine and Metamizole may falsely depress this assay.Serum Triglycerides Reference Interval Normal <150 mg/dL Borderline high 150 - 199 mg/dL High 200 - 499 mg/dL Very High > or = 500 mg/dL Laboratory - Chemistry and C hemistry - challengeOrdered By: Isaak Cruz on 05-23-2023 Albumin/Globulin [Mass ratio] 1.0 {ratio} 0.9-2.4 [facility] ALP [Catalytic activity/Vol] 102 U/L 45-117 [facility] ALT [Catalytic activity/Vol] 30 U/L 16-61 [facility] Cholesterol in HDL [Mass/Vol] 48 mg/dL >40 [facility] Comment on above: The drugs N-Acetylcy steine and Metamizole may falsely depress this assay. Reference Range HDL <40 mg/dL Low HDL Cholesterol HDL >or= 60 mg/dL High HDL Cholesterol Cholesterol in LDL [Mass/Vol] 159 mg/dL 0-130 [facility] CO2 [Moles/Vol] 28.0 mmol/L 21.0-32.0 [facility] Globulin (S) [Mass/Vol] 3.6 g/dL 2.2-4.2 [facility] Urea nitrogen/Creatinine [Mass ratio] 30.3 mg/mg 10-20 [facility] No Panel InformationOrdered By: Isaak Cruz on 05-23-2023 Estimated GFR (MDRD) Amer 97 mL/min >60 [facility] Comment on above: GFR Calc Estimated GFR (MDRD) Non-Af Amer 80 mL/min >60 [facility] Comment on above: Non- GFR Calc VLDL Cholesterol 25 mg/dL 5-40 [facility] Serum or plasma calcium bobbi urement (mass/volume)Ordered By: Isaak Cruz on 05-23-2023 Calcium [Mass/Vol] 9.7 mg/dL 8.5-10.1 [facility] Serum or plasma creatinine m easurement (mass/volume)Ordered By: Isaak Cruz on 05-23-2023 Creatinine [Mass/Vol] 0.96 mg/dL 0.70-1.30 [facility] Comment on above: The validity of the calculated GFR & GFRAA in patients over 70 years has not been determined. Clinical correlation is essential. Serum or plasma urea nitroge n measurement (mass/volume)Ordered By: Isaak Cruz on 05-23-2023 Urea nitrogen [Mass/Vol] 29 mg/dL 7-18 [facility] Thin prep Papanicolaou smear with manual screeningOrdered By: Isaak Cruz on 05-23-2023 Thin prep Papanicolaou smear with manual screening 3.7 g/dL 3.2-5.0 [facility] Thin prep Papanicolaou smear with manual screening 30 U/L 15-37 [facility] Thin prep Papanicolaou smear with manual screening 4 5-15 [facility] Basophil percentageOrdered B y: Isaak Cruz on 02-22-2023 Bilirubin [Mass/Vol] 1.00 mg/dL 0.20-1.00 [facility] Comment on above: For patients on eltr ombopag therapy, use of Dimension [place] TBIL is not recommended. Chloride [Moles/Vol] 106 mmol/L 98-107 [facility] Cholesterol [Mass/Vol] 207 mg/dL <200 [facility] Comment on above: <200 mg/dL Desirable 200-240 mg/dL Borderline >240 mg/dL High Risk Glucose [Mass/Vol] 97 mg/dL 74-106 [facility] Potassium [Moles/Vol] 4.4 mmol/L 3.5-5.1 [facility] Protein [Mass/Vol] 7.1 g/dL 6.4-8.2 [facility] Sodium [Moles/Vol] 138 mmol/L 136-145 [facility] Triglyceride [Mass/Vol] 178 mg/dL <199 [facility] Comment on above: The drugs N-Acetylcy steine and Metamizole may falsely depress this assay.Serum Triglycerides Reference Interval Normal <150 mg/dL Borderline high 150 - 199 mg/dL High 200 - 499 mg/dL Very High > or = 500 mg/dL Laboratory - Chemistry and C hemistry - challengeOrdered By: Isaak Cruz on 02-22-2023 ALP [Catalytic activity/Vol] 102 U/L 45-117 [facility] ALT [Catalytic activity/Vol] 30 U/L 16-61 [facility] CO2 [Moles/Vol] 27.0 mmol/L 21.0-32.0 [facility] Globulin (S) [Mass/Vol] 3.7 g/dL 2.2-4.2 [facility] Urea nitrogen/Creatinine [Mass ratio] 26.6 mg/mg 10-20 [facility] No Panel InformationOrdered By: Isaak Cruz on 02-22-2023 Estimated GFR (MDRD) Amer 72 mL/min >60 [facility] Comment on above: GFR Calc Estimated GFR (MDRD) Non-Af Amer 60 mL/min >60 [facility] Comment on above: Non- GFR Calc Serum or plasma albumin bobbi urement (mass/volume)Ordered By: Isaak Cruz on 02-22-2023 Albumin [Mass/Vol] 3.4 g/dL 3.2-5.0 [facility] Serum or plasma albumin/glob ulin mass ratioOrdered By: Isaak Cruz on 02-22-2023 Albumin/Globulin [Mass ratio] 0.9 {ratio} 0.9-2.4 [facility] Serum or plasma calcium bobbi urement (mass/volume)Ordered By: Isaak Cruz on 02-22-2023 Calcium [Mass/Vol] 8.9 mg/dL 8.5-10.1 [facility] Serum or plasma cholesterol in HDL measurement (mass/volume)Ordered By: Isaak Cruz on 02-22-2023 Cholesterol in HDL [Mass/Vol] 45 mg/dL >40 [facility] Comment on above: The drugs N-Acetylcy steine and Metamizole may falsely depress this assay. Reference Range HDL <40 mg/dL Low HDL Cholesterol HDL >or= 60 mg/dL High HDL Cholesterol Serum or plasma cholesterol in VLDL measurement (mass/volume)Ordered By: Isaak Cruz on 02-22-2023 Cholesterol in VLDL [Mass/Vol] 36 mg/dL 5-40 [facility] Serum or plasma creatinine m easurement (mass/volume)Ordered By: Isaak Cruz on 02-22-2023 Creatinine [Mass/Vol] 1.24 mg/dL 0.70-1.30 [facility] Comment on above: The validity of the calculated GFR & GFRAA in patients over 70 years has not been determined. Clinical correlation is essential. Serum or plasma low density lipoprotein (LDL) cholesterol measurement (mass/volume)Ordered By: Isaak Cruz on 02-22-2023 Cholesterol in LDL [Mass/Vol] 126 mg/dL 0-130 [facility] Serum or plasma urea nitroge n measurement (mass/volume)Ordered By: Isaak Cruz on 02-22-2023 Urea nitrogen [Mass/Vol] 33 mg/dL 7-18 [facility] Thin prep Papanicolaou smear with manual screeningOrdered By: Isaak Cruz on 02-22-2023 Thin prep Papanicolaou smear with manual screening 17 U/L 15-37 [facility] Thin prep Papanicolaou smear with manual screening 5 5-15 [facility] Basophil percentageOrdered B y: Isaak Cruz on 11-22-2022 Chloride [Moles/Vol] 107 mmol/L 98-107 [facility] Cholesterol [Mass/Vol] 223 mg/dL <200 [facility] Comment on above: <200 mg/dL Desirable 200-240 mg/dL Borderline >240 mg/dL High Risk Glucose [Mass/Vol] 101 mg/dL 74-106 [facility] Comment on above: Fasting Glucose resu lt from 100 to 125 mg/dL suggests IMPAIRED HOMEOSTASIS per A.D.A. criteria. Potassium [Moles/Vol] 4.0 mmol/L 3.5-5.1 [facility] Sodium [Moles/Vol] 140 mmol/L 136-145 [facility] Triglyceride [Mass/Vol] 164 mg/dL <199 [facility] Comment on above: The drugs N-Acetylcy steine and Metamizole may falsely depress this assay.Serum Triglycerides Reference Interval Normal <150 mg/dL Borderline high 150 - 199 mg/dL High 200 - 499 mg/dL Very High > or = 500 mg/dL Laboratory - Chemistry and C hemistry - challengeOrdered By: Isaak Cruz on 11-22-2022 CO2 [Moles/Vol] 27.0 mmol/L 21.0-32.0 [facility] Urea nitrogen/Creatinine [Mass ratio] 25.5 mg/mg 10-20 [facility] No Panel InformationOrdered By: Isaak Cruz on 11-22-2022 Estimated GFR (MDRD) Amer 90 mL/min >60 [facility] Comment on above: GFR Calc Estimated GFR (MDRD) Non-Af Amer 75 mL/min >60 [facility] Comment on above: Non- GFR Calc Prostate Specific Antigen Screen 3.06 ng/mL 0.00-4.00 [facility] Comment on above: This test was perfor med using the TPSA assay method for the[employer] chemistry system. Values obtained with differentassay methods cannot be used interchangably.When changing PSA assays in the course of monitoring apatient, additional sequential testing should be carriedout to confirm baseline values. Thyroid Stimulating Hormone (TSH) 2.24 uIU/mL 0.358-3.74 [facility] Serum or plasma calcium bobbi urement (mass/volume)Ordered By: Isaak Cruz on 11-22-2022 Calcium [Mass/Vol] 9.3 mg/dL 8.5-10.1 [facility] Serum or plasma cholesterol in HDL measurement (mass/volume)Ordered By: Isaak Cruz on 11-22-2022 Cholesterol in HDL [Mass/Vol] 54 mg/dL >40 [facility] Comment on above: The drugs N-Acetylcy steine and Metamizole may falsely depress this assay. Reference Range HDL <40 mg/dL Low HDL Cholesterol HDL >or= 60 mg/dL High HDL Cholesterol Serum or plasma cholesterol in VLDL measurement (mass/volume)Ordered By: Isaak Cruz on 11-22-2022 Cholesterol in VLDL [Mass/Vol] 33 mg/dL 5-40 [facility] Serum or plasma creatinine m easurement (mass/volume)Ordered By: Isaak Cruz on 11-22-2022 Creatinine [Mass/Vol] 1.02 mg/dL 0.70-1.30 [facility] Comment on above: The validity of the calculated GFR & GFRAA in patients over 70 years has not been determined. Clinical correlation is essential. Serum or plasma low density lipoprotein (LDL) cholesterol measurement (mass/volume)Ordered By: Isaak Cruz on 11-22-2022 Cholesterol in LDL [Mass/Vol] 136 mg/dL 0-130 [facility] Serum or plasma urea nitroge n measurement (mass/volume)Ordered By: Isaak Cruz on 11-22-2022 Urea nitrogen [Mass/Vol] 26 mg/dL 7-18 [facility] Thin prep Papanicolaou smear with manual screeningOrdered By: Isaak Cruz on 11-22-2022 Thin prep Papanicolaou smear with manual screening 6 - [facility] Basophil percentageon 2021 Chloride [Moles/Vol] 106 mmol/L 98-107 [facility] Work Phone: Cholesterol [Mass/Vol] 207 mg/dL <200 [facility] Work Phone: Comment on above: <200 mg/dL Desirable 200-240 mg/dL Borderline >240 mg/dL High Risk Glucose [Mass/Vol] 106 mg/dL 74-106 [facility] Work Phone: Comment on above: Fasting Glucose resu lt from 100 to 125 mg/dL suggests IMPAIRED HOMEOSTASIS per A.D.A. criteria. Potassium [Moles/Vol] 4.2 mmol/L 3.5-5.1 [facility] Work Phone: Sodium [Moles/Vol] 140 mmol/L 136-145 [facility] Work Phone: Triglyceride [Mass/Vol] 135 mg/dL <199 [facility] Work Phone: Comment on above: The drugs N-Acetylcy steine and Metamizole may falsely depress this assay.Serum Triglycerides Reference Interval Normal <150 mg/dL Borderline high 150 - 199 mg/dL High 200 - 499 mg/dL Very High > or = 500 mg/dL Laboratory - Chemistry and C hemistry - challengeon 10-20-2021 CO2 [Moles/Vol] 29.0 mmol/L 21.0-32.0 [facility] Work Phone: Urea nitrogen/Creatinine [Mass ratio] 24.3 mg/mg 10-20 [facility] Work Phone: No Panel Informationon 10-20 Estimated GFR (MDRD) Amer 90 mL/min >60 [facility] Work Phone: Comment on above: GFR Calc Estimated GFR (MDRD) Non-Af Amer 74 mL/min >60 [facility] Work Phone: Comment on above: Non- GFR Calc Prostate Specific Antigen Screen 2.65 ng/mL 0.00-4.00 [facility] Work Phone: Comment on above: This test was perfor med using the TPSA assay method for [employer] chemistry system. Values obtained with differentassay methods cannot be used interchangably.When changing PSA assays in the course of monitoring apatient, additional sequential testing should be carriedout to confirm baseline values. Serum or plasma calcium bobbi urement (mass/volume)on 10-20-2021 Calcium [Mass/Vol] 9.2 mg/dL 8.5-10.1 [facility] Work Phone: Serum or plasma cholesterol in HDL measurement (mass/volume)on 10-20-2021 Cholesterol in HDL [Mass/Vol] 49 mg/dL >40 [facility] Work Phone: Comment on above: The drugs N-Acetylcy steine and Metamizole may falsely depress this assay. Reference Range HDL <40 mg/dL Low HDL Cholesterol HDL >or= 60 mg/dL High HDL Cholesterol Serum or plasma cholesterol in VLDL measurement (mass/volume)on 10-20-2021 Cholesterol in VLDL [Mass/Vol] 27 mg/dL 5-40 [facility] Work Phone: Serum or plasma creatinine m easurement (mass/volume)on 10-20-2021 Creatinine [Mass/Vol] 1.03 mg/dL 0.70-1.30 [facility] Work Phone: Comment on above: The validity of the calculated GFR & GFRAA in patients over 70 years has not been determined. Clinical correlation is essential. Serum or plasma low density lipoprotein (LDL) cholesterol measurement (mass/volume)on 10-20-2021 Cholesterol in LDL [Mass/Vol] 131 mg/dL 0-130 [facility] Work Phone: Serum or plasma urea nitroge n measurement (mass/volume)on 10-20-2021 Urea nitrogen [Mass/Vol] 25 mg/dL 7-18 [facility] Work Phone: Thin prep Papanicolaou smear with manual screeningon 10-20-2021 Thin prep Papanicolaou smear with manual screening 5 -15 [facility] Work Phone: Vital Signs Date Time Vital Sign Value Performing Clinician Faci lity 09-24-2024 08:50-0400 Body height 193.[address] Isaak Cruz MD Work Phone: [facility] 07-14-2024 09:14-0400 Body mass index (BMI) [Ratio] 27.5 kg/m2 Dr. Isaak Cruz MD Work Phone: [facility] 07-14-2024 09:14-0400 Body weight 102.[address] Isaak Cruz MD Work Phone: [facility] 07-14-2024 09:14-0400 Diastolic blood pressure 62 mm[Hg] Dr. Isaak Cruz MD Work Phone: [facility] 07-14-2024 09:14-0400 Heart rate 65 /min Dr. Isaak Cruz MD Work Phone: [facility] 07-14-2024 09:14-0400 Respiratory rate 16 /min Dr. Isaak Cruz MD Work Phone: [facility] 07-14-2024 09:14-0400 Systolic blood pressure 99 mm[Hg] Dr. Isaak Cruz MD Work Phone: [facility] 05-27-2023 08:22-0500 Body height 193.[address] Isaak Cruz Work Phone: [facility] 05-27-2023 08:22-0500 Body mass index (BMI) [Ratio] 28.5 kg/m2 Dr. Isaak Cruz Work Phone: [facility] 05-27-2023 08:22-0500 Body weight 106.[address] Isaak Cruz Work Phone: [facility] 05-27-2023 08:22-0500 Diastolic blood pressure 68 mm[Hg] Dr. Isaak Cruz Work Phone: [facility] 05-27-2023 08:22-0500 Heart rate 102 /min Dr. Isaak Cruz Work Phone: [facility] 05-27-2023 08:22-0500 Respiratory rate 18 /min Dr. Isaak Cruz Work Phone: [facility] 05-27-2023 08:22-0500 Systolic blood pressure 115 mm[Hg] Dr. Isaak Cruz Work Phone: [facility] 02-14-2023 10:42-0500 Body height 193.[address] Isaak Cruz Work Phone: [facility] 02-14-2023 10:42-0500 Body mass index (BMI) [Ratio] 28.5 kg/m2 Dr. Isaak Cruz Work Phone: [facility] 02-14-2023 10:42-0500 Body temperature 98.3 [degF] Dr. Isaak Cruz Work Phone: [facility] 02-14-2023 10:42-0500 Body weight 106.[address] Isaak Cruz Work Phone: [facility] 02-14-2023 10:42-0500 Diastolic blood pressure 78 mm[Hg] Dr. Isaak Cruz Work Phone: [facility] 02-14-2023 10:42-0500 Heart rate 56 /min Dr. Isaak Cruz Work Phone: [facility] 02-14-2023 10:42-0500 Respiratory rate 14 /min Dr. Isaak Cruz Work Phone: [facility] 02-14-2023 10:42-0500 SaO2% (BldA) [Mass fraction] 95 % Dr. Isaak Cruz Work Phone: [facility] 02-14-2023 10:42-0500 Systolic blood pressure 132 mm[Hg] Dr. Isaak Cruz Work Phone: [facility] Encounters Encounter Date Encounter Type Care Provider Facility Start: 09-30-2024 End: 09-30-[address] Isaak Cruz MD Work Phone: -Radiology [facility] Start: 09-30-2024 End: 09-30-[address] Isaak Cruz MD -Radiology [facility] Work Phone: Start: 09-30-2024 End: 09-30-2024 ambulatory Isaak Cruz Facility:[facility] Start: 09-24-2024 End: 09-24-[address] Gilberto Jack MD -[facility] Start: 09-24-2024 End: 09-24-[address] Isaak Cruz MD Work Phone: [facility] Work Phone: Start: 07-14-2024 End: 07-14-[address] Gilberto Jack MD -[facility] Work Phone: Start: 07-14-2024 End: 07-14-2024 ambulatory Isaak Cruz Facility:[facility] Start: 05-22-2024 End: 05-22-2024 ambulatory Isaak Cruz Facility:[facility] Start: 02-07-2024 Encounter for other preprocedural examination Maryse Sheffield Chidi [facility] Start: 02-06-2024 End: 02-07-2024 ambulatory Isaak Cruz Facility:[facility] Start: 01-22-2024 End: 01-22-2024 ambulatory Isaak Cruz Facility:[facility] Start: 12-17-2023 Encounter for other preprocedural examination Isaak Cruz [facility] Start: 11-20-2023 End: 11-20-2023 ambulatory Isaak Cruz Facility:[facility] Start: 05-27-2023 End: 05-27-[address] Isaak Cruz Work Phone: [facility] Work Phone: Start: 05-27-2023 End: 05-27-[address] [facility] Work [facility]: Start: 05-23-2023 End: 05-23-[address] Isaak Cruz Work Phone: [facility] Work Phone: Start: 05-23-2023 End: 05-23-[address] Isaak Cruz Work Phone: [facility] Start: 02-22-2023 End: 02-22-[address] Isaak Cruz Work Phone: [facility] Work Phone: Start: 02-22-2023 End: 02-22-[address] Isaak Cruz Work Phone: [facility] Start: 02-14-2023 End: 02-14-[address] Isaak Cruz Work Phone: [facility] Work Phone: Start: 01-29-2023 Non-patient / Non-visit Dr. Darnell Cruz Work Phone: [facility] Start: 01-29-2023 End: 01-29-[address] Isaak Cruz Work Phone: [facility] Work Phone: Start: 01-29-2023 End: 01-29-[address] Isaak Cruz Work Phone: [facility] Work Phone: Start: 11-22-2022 End: 11-22-2022 ambulatory [facility] Work Phone: Start: 11-22-2022 End: 11-22-2022 Patient encounter procedure [facility] Work Phone: Start: 10-20-2021 End: 10-20-2021 Patient encounter procedure [facility] Family Procedures Date Procedure Procedure Detail Performing Clinician Start: 09-30-[address] Isaak mckeon MD Work Phone: Start: 09-24-2024 X-ray of lumbar spin e, two or three views Dr. Isaak Cruz MD Work Phone: Start: 01-29-2023 Radionuclide imaging of perfusion of myocardium under exercise stress Dr. Isaak Cruz Work Phone: Plan of Treatment Date Care Activity Detail Author Start: 09-24-2024 X-ray of lumbar spin e, two or three views Lumbar Spine 2 or 3 Views [facility] Immunizations Immunization Date Immunization Notes Care Provider Fa [facility] 02-25-2021 Covid (Moderna) [facility] 02-06-2021 Influenza virus vaccine [facility] 09-06-2020 Covid (Moderna) [facility] 08-06-2020 Covid (Moderna) [facility] 01-06-2014 influenza, injectabl e, quadrivalent, preservative free Dr. Isaak Cruz Work Phone: [facility] 01-06-2014 influenza, seasonal, injectable [facility] 09-06-2012 Pneumococcal Vaccine [facility] Work Phone: 09-06-2012 pneumococcal vaccine , unspecified formulation [facility] Payers Date Payer Category Payer Self-pay [id number] 2007 Medicare [id number] 2005 Private Health Insurance [id number] Unknown [id number] 2.16.8 [id number] Unknown [id number] 2.16.8 [id number] Unknown [id number] 2.16.8 [id number] Unknown [id number] 2.16.8 [id number] Unknown [id number] 2.16.8 [id number] Unknown [id number] 2.16.8 [id number] Unknown [id number] 2.16.8 [id number] Unknown [id number] 2.16.8 [id number] Unknown [id number] 2.16.8 [id number] Social History Date Type Detail Facility Start: 06-13-2021 End: 05-27-2023 Tobacco smoking status ORIS Unknown if ever smoked [facility] Start: 07-17-2014 None [facility] Start: 07-17-2014 Alone [facility] Start: 07-17-2014 Non-smoker [facility] Start: 1940 Sex Assigned At Male [facility] Start: 09-24-2024 [facility] Medical Equipment Procedure Code Equipment Code Equipment Origin al Text Equipment Identifier Dates Laminectomy, spine, lumbar, with spinal cord stimulator insertion Injex Bi-Wing Irma FDA Start: 02-06-2024 Laminectomy, spine, lumbar, with spinal cord stimulator insertion Specify SureScan MRI 5-6-5 FDA Start: 02-06-2024 Laminectomy, spine, lumbar, with spinal cord stimulator insertion Vanta AdaptiveStim [id number] FDA Start: 02-06-2024 Laminectomy, spine, lumbar, with spinal cord stimulator insertion Collagen haemostatic agent, non-antimicrobial [id number] FDA Start: 02-06-2024 Laminectomy, spine, lumbar, with spinal cord stimulator insertion Gelatin haemostatic agent ()[id number] FDA Start: 02-06-2024 Laminectomy, spine, lumbar, with spinal cord stimulator insertion Injex Bi-Wing Irma FDA Start: 02-06-2024 Laminectomy, spine, lumbar, with spinal cord stimulator insertion Specify SureScan MRI 5-6-5 FDA Start: 02-06-2024 Laminectomy, spine, lumbar, with spinal cord stimulator insertion Vanta AdaptiveStim [id number] FDA Start: 02-06-2024 ([id number]) Metal-backed pat fiona prosthesis ()[id number] FDA Start: 01-09-2021 ([id number]) Coated knee femu r prosthesis ()[id number] FDA Start: 01-09-2021 ([id number]) Coated knee tibi a prosthesis ()[id number] FDA Start: 01-09-2021 ([id number]) Tibial insert ()[id number] AV FDA Start: 01-09-2021 ([id number]) Metal-backed pat fiona prosthesis ()[id number] 1 FDA Start: 03-13-2021 ([id number]) Coated knee femu r prosthesis ()[id number] FDA Start: 03-13-2021 ([id number]) Coated knee tibi a prosthesis ()[id number] FDA Start: 03-13-2021 ([id number]) Tibial insert ()[id number] FDA Start: 03-13-2021 Procedure note 09-30-2024 Note Date & Type Note Facility 09-30-2024 Procedure note [facility] Evaluation note 07-14-2024 Note Date & Type Note Facility 07-14-2024 Evaluation note Diagnosis Onset Date Resolution Atrial fibrillation acute July 14, 2024 9:13am Hyperlipidemia chronic July 14, 2024 9:13am Nonobstructive atherosclerosis of coronary artery chronic July 14, 2024 9:13am [facility] [employer] Work Phone: Discharge summary note 02-06-2024 Note Date & Type Note Facility 02-06-2024 Note [facility] Medical Records Department [address] [place] [id number] Discharge Summary 02/06/24 0725 MR#: [id number] Acct: [id number] Name: ENRICO MUÑOZ LAURA Rep #: [id number] : 1940 83 From: Romie Delgado DO PCP: Dr. Isaak Cruz MD Status:ADM MONICA Location: [place] [address] Providers Date of Admission: 02/06/24 Primary Care Physician: Dr. Isaak Cruz MD Reason For Visit: Hardware Removal of Spinal Cord Sti Diagnosis Discharge Diagnosis (1) Lumbar spondylosis: Status: Acute Code(s): M47.816 - Spondylosis without myelopathy or radiculopathy, lumbar region Plan: Okay to admit See orders Discharge planning, likely home tomorrow Medications at Discharge Home Medications multivitamin (Daily Multi-Vitamin tablet) 1 tab PO DAILY 06/17/18 tamsulosin 0.4 mg capsule (Flomax) 0.4 mg PO DAILY 06/18/19 metoprolol succinate 25 mg tablet,extended release 24 hr 25 mg PO DAILY #90 tabs 05/24/23 cholecalciferol (vitamin D3) 25 mcg (1,000 unit) tablet (Vitamin D3) 25 mcg PO DAILY 01/15/24 donepezil 10 mg tablet 10 mg PO DAILY 01/15/24 duloxetine 30 mg capsule,delayed release 30 mg PO DAILY 01/15/24 hydrocodone-acetaminophen 5-325mg 5mg-325mg 1 tab PO Q6H 7 days #28 tabs 02/06/24 Hospital Course Operations - (Explantation of previous spinal cord stimulator leads and generator. T9-10 laminectomy with implantation of spinal cord stimulator lead and generator) Summary of Care Provided Minutes Spent on Discharge: 15 Hospital Course: The patient is an 83-year-old male who underwent explantation of previous nonfunctioning spinal cord stimulator leads and generator with implantation of new spinal cord stimulator lead and generator on 02/06/2024. He was subsequently admitted. The hospitalist was consulted for medical management. The patient progressed well. His pain was controlled and he was mobilizing well. No significant medical issues were reported. He was subsequently discharged home on 02/07/2024 to follow-up with Dr. Delgado in 3 weeks Physical Exam Const alert, oriented x3 and no apparent distress General Appearance: cooperative, comfortable and well kempt Neck full ROM General: normal visual inspection Resp normal respiratory effort and normal air movement Effort and Inspection: able to speak in complete sentences Cardio regular rate and peripheral pulses 2+ throughout GI soft to palpation, non-tender and non-distended Back/Spine Back/Spine Narrative: Dressings clean dry and intact. Incisions well-approximated with interrupted sutures in place Cervical Spine: cervical ROM normal Thoracic Spine / Upper Back: normal to inspection Lumbar Spine / Lower Back: normal to inspection Extremity normal to inspection, full ROM, normal capillary refill, no clubbing, cyanosis or edema and no calf tenderness Skin no rashes or lesions noted General Skin Exam: no breakdown Neuro oriented x3, CN's II-XII intact bilaterally, moves all extremities, no focal motor deficits, no sensory deficits noted and deep tendon reflexes 2+ bilaterally Motor Exam: strength 5/5 throughout and muscle tone normal throughout Weight / BMI Weight Weight: 222 lb 10.67 oz Body Mass Index (BMI) 27.1 ABG / Lab / Microbiology Data 01/22/24 07:32 01/22/24 07:32 Microbiology: Microbiology 01/22/24 07:32 Swab (Method) Nasal Screen MRSA/MSSA - Final D/C Instructions Discharge Diet: No restrictions Additional Activity Instructions: No repetitive bending twisting or lifting greater than 5 pounds. No reaching above head Call your doctor if your incision/area has: Continuous Slow Oozing, Sudden Increased Bleeding, Increased Pain/ Swelling, Increased Redness, Foul Smelling Discharge and Swelling at the incision site Call your doctor if you observe: Fever of 101 or Higher, Coldness, Increased Pain, Numbness or Tingling, Change in Color, Inability to urinate, Inability to have a bowel movement, Using more than 1 pad per hour, Shortness of breath, Dizziness, Fainting spells, Swelling in the ankles, Chest pain, Prolonged hiccupping, Increased palpitations (irregular heartbeat), Calf discomfort and Uncontrolled pain Additional Dressing/Incision Instructions: Change dressings daily with gauze and tape Additional Instructions: 1. During your procedure, you received sedation through your IV. Please follow these instructions for the next 24 hours: Do not drive a motor vehicle, do not drink any alcoholic beverages, and do not sign any legal documents or make personal or business decisions. A responsible adult should stay with you at least 6 hours after the procedure. 2. Keep your surgical site/incision clean and the dressing dry and intact. Change dressings daily with gauze and tape. You may use an ice pack at the surgical site to reduce any swelling or discomfort. 3. Monitor the inc (more content not included)... [facility] Evaluation note Note Date & Type Note Facility Evaluation note No assessment information availa [facility] Work Phone: Evaluation note Note Date & Type Note Facility Evaluation note Diagnosis Onset Date Abrasion of right elbow, initial encounter acute Olecranon bursitis, right elbow acute [facility] Work Phone: Evaluation note Note Date & Type Note Facility Evaluation note Diagnosis Onset Date Abrasion of right elbow, initial encounter acute Olecranon bursitis, right elbow acute Atrial fibrillation acute Hyperlipidemia chronic Nonobstructive atheroscleros is of coronary artery chronic [facility] Work Phone: Reason for referral (narrative) Note Date & Type Note Facility Reason for referral (narrative) No reason for referral information available [facility] Work Phone: Family History No Family History Records Found Relationship Condition Age at Onset Recorded Date/T lorie father Cardiac disease Unknown brother Cardiac disease Unknown Advance Directives No Advanced Directives Records Found Advance Directive Response Recorded Date/ Time Advance Directives No June 06 11:44am Living Will No March 13 9:36pm Power of Human Resources Operations Coordinator No March 13, 2021 9:36pm Advance Directive Response Recorded Date/ Time Advance Directives No June 06 10:44am Living Will No March 13 8:36pm Power of Human Resources Operations Coordinator No March 13, 2021 8:36pm Advance Directive Response Recorded Date/ Time Living Will No March 13 9:36pm Do you have a Healthcare Power of Human Resources Operations Coordinator? No March 13, 2021 9:36pm Advance Directives No September 24 8:50am Chief Complaint and Reason for Visit Chief Complaint Admit Date 1 Y FU July 14, 2024 9:13 am XRAY September 24, 2024 8:53 am DYSPHAGIA September 30, 2024 9:11 am Reason for Visit Admit Date Atrial fibrillation July 14, 2024 9:13 am Hyperlipidemia July 14, 2024 9:13 am Nonobstructive atherosclerosis of chambers ry artery July 14, 2024 9:13am Chief Complaint Shortness of breath Shortness of breath Chief Complaint Shortness of breath Shortness of breath CONCERN FOR INFECTION ON RIGHT ELBOW Reason for Visit Abrasion of right el bow, initial encounter Olecranon bursitis, right elbow Chief Complaint Shortness of breath Shortness of breath CONCERN FOR INFECTION ON RIGHT ELBOW 1 Y FU Reason for Visit Abrasion of right el bow, initial encounter Olecranon bursitis, right elbow Atrial fibrillation Hyperlipidemia Nonobstructive atherosclerosis of coronary artery Chief Complaint CONCERN FOR INFECTIO N ON RIGHT ELBOW 1 Y FU Reason for Visit Abrasion of right el bow, initial encounter Olecranon bursitis, right elbow Atrial fibrillation Hyperlipidemia Nonobstructive atherosclerosis of coronary artery Chief Complaint Admit Date 1 Y FU July 14, 2024 9:13 am XRAY September 24, 2024 8:53 am Summary Purpose Additional Source Comments Goals (unrecognized section and content) Goals may be documented in a n alternate sectionGoals may be documented in an alternate sectionGoals may be documented in an alternate sectionGoals may be documented in an alternate sectionGoals may be documented in an alternate sectionGoals may be documented in an alternate sectionGoals may be documented in an alternate sectionGoals may be documented in an alternate section Care Teams (unrecognized sec tion and content) Team Status: Active Member Role Status Dates Dr. Isaak Cruz MD Family Provider Active Dr. Isaak Cruz MD Primary Care Provider Active Team Status: Inactive Member Role Status Dates Dr. Isaak Cruz MD Primary Care Provider, Attending Provider Active Team Status: Active Member Role Status Dates Dr. Isaak Cruz MD Primary Care Provi alena, Referring Provider, Other Provider Active Dr. Gilberto Jack MD Attending Provider Active Team Status: Inactive Member Role Status Dates Dr. Isaak Cruz MD Primary Care Provi alena, Attending Provider, Referring Provider Active Team Status: Inactive Member Role Status Dates Dr. Isaak Cruz MD Primary Care Provider, Referring Provider Active Avery Appiah PA, PA Attending Provider Active Team Status: Inactive Member Role Status Dates Dr. Isaak Cruz MD Primary Care Provider, Referring Provider Active Dee Dee Grimm PA, PA Attending Provider Active Team Status: Active Member Role Status Dates Dr. Isaak Cruz MD Primary Care Provider Active Dee Dee Grimm PA, PA Attending Provider Active Team Status: Inactive Member Role Status Dates Dr. Isaak Cruz MD Primary Care Provider Active Dee Dee Grimm PA, PA Attending Provider Active Team Status: Active Member Role Status Dates Dr. Isaak Cruz MD Primary Care Provider Active Team Status: Inactive Member Role Status Dates Dr. Isaak Cruz MD Primary Care Provider Active Start: July 14, 2024 End: July 14, 2024 Dr. Isaak Cruz MD Referring Provider Active Start: July 14, 2024 End: July 14, 2024 Dr. Gilberto Jack MD Attending Provider Active S tart: July 14, 2024 End: July 14, 2024 Team Status: Inactive Member Role Status Dates Dr. Isaak Cruz MD Primary Care Provider Active Start: September 24, 2024 End: September 24, 2024 Dr. Gilberto Jack MD Attending Provider Active S tart: September 24, 2024 End: September 24, 2024 Team Status: Active Member Role/Relationship Status Dates Dr. Isaak Cruz MD Primary Care Provider Active Team Status: Inactive Member Role/Relationship Status Dates Dr. Isaak Cruz MD Primary Care Provider Active Start: July 14, 2024 End: July 14, 2024 Dr. Isaak Cruz MD Referring Provider Active Start: July 14, 2024 End: July 14, 2024 Dr. Gilberto Jack MD Attending Provider Active S tart: July 14, 2024 End: July 14, 2024 Team Status: Inactive Member Role/Relationship Status Dates Dr. Isaak Cruz MD Primary Care Provider Active Start: September 24, 2024 End: September 24, 2024 Dr. Gilberto Jack MD Attending Provider Active S tart: September 24, 2024 End: September 24, 2024 Team Status: Inactive Member Role/Relationship Status Dates Dr. Isaak Cruz MD Primary Care Provider Active Start: September 30, 2024 End: September 30, 2024 Dr. Isaak Cruz MD Attending Provider Active Start: September 30, 2024 End: September 30, 2024 Dr. Isaak Cruz MD Referring Provider Active Start: September 30, 2024 End: September 30, 2024 (unrecognized sect ion and content) No Status Records Found INFORMATION SOURCE (unrecogn ized section and content) DATE CREATED AUTHOR 10/06/2024 [facility] FOR RECORDS PERTAINING TO PATIENTS WHO ARE OR HAVE BEEN ENROLLED IN A CHEMICAL DEPENDENCY/SUBSTANCEABUSE PROGRAM, SOME INFORMATION MAY BE OMITTED. This clinical summary was aggregated from multiple sources. Caution should be exercised in using it in the provision of clinical care. This summary normalizes information from multiple sources, and as a consequence, information in this document may materially change the coding, format and clinical context of patient data. In addition, data may be omitted in some cases. CLINICAL DECISIONS SHOULD BE BASED ON THE PRIMARY CLINICAL RECORDS. [employer] provides no warranty or guarantee of the accuracy or completeness of information in this document.
[2024-11-18 11:04] LABS: Creatinine, Urine (random) 142.00 mg/dL (39.00-259.00); Microalbumin,Random Urine 61.6 mg/L (<20 mg/L)
[2024-11-18 11:36] LABS: AST(SGOT) 20 U/L (<=37); Alanine Aminotransfer ALT/SGPT 12 U/L (<=46); Albumin, Serum 4.0 g/dL (3.4-4.8); Alkaline Phosphatase 113 U/L (40-129); Anion Gap 13 (5-15); BUN 24 mg/dL (4-19); BUN/Creat Ratio 24.3 RATIO (10-20); Calcium,Total 9.8 mg/dL (7.6-11.0); Carbon Dioxide 24.2 mmol/L (21.0-32.0); Chloride 101 mmol/L (98-108); Cholesterol 215 mg/dL (<=200); Globulin 3.4 g/dL (2.2-4.2); Glucose 108 mg/dL (70-99); Low Density Lipoprotein Calc. 149 mg/dL; Potassium 4.5 mmol/L (3.3-5.1); Triglycerides 109 mg/dL; Very Low Density Lipoprotein 22 mg/dL (5-40); cholesterol:hdl ratio screen 4.91
== END | disposition home or self-care (01) ==
LOC: MFPLAB 08:41
PROVIDERS: PCP Family Medicine; Visit Provider Family Medicine
DX: I10 Essential (primary) hypertension (principal); E78.5 Hyperlipidemia, unspecified
CPT/HCPCS: 36415; 80053; 80061; 82043; 82570

== ENCOUNTER → 2024-12-03 | Outpatient (CLI) | payer MEDICARE, OTHER, SELFPAY ==
--- NOTE | 2024-12-03 10:49 | RAD_ITS ---
EXAM: XR Cervical Spine, 4 or 5 Views CLINICAL INDICATION: NECK PAIN TECHNIQUE: Frontal, lateral and bilateral oblique views of the cervical spine. COMPARISON: XR Cervical Spine dated 10/01/2023 FINDINGS: VERTEBRAE: Degenerative facet arthropathy throughout the cervical spine. Normal alignment. No fracture or significant dynamic instability. DISC SPACES: Degenerative disc disease throughout the cervical spine. SOFT TISSUES: Unremarkable. RAD/Cerv Spine Obl/Flex/Ext Comp IMPRESSION: 1. No fracture or significant dynamic instability. 2. If symptoms persist, further evaluation with MRI is recommended. 3. Degenerative changes of the cervical spine as described. Reading [facility]
--- NOTE | 2024-12-03 10:49 | RAD_ITS ---
PROCEDURE: SHOULDER MIN 2 VIEWS 12/03/2024 REASON FOR EXAM: BILATERAL SHOULDER PAIN TECHNIQUE: Four view right shoulder series and four view left shoulder series (combined dictation). COMPARISON: None. RAD/Shoulder min 2 Views IMPRESSION: A spinal neurostimulator is seen, with tip projecting in the T6-T7 level. Dege nerative changes and dextroscoliosis of the thoracic spine noted. The right acromioclavicular joint demonstrates dwbs-py-wyynvlnn degenerative ch anges with partial joint narrowing. Rzcb-gd-svgmwoxu right glenohumeral joint degenerative changes are seen, but wi thout significant associated joint narrowing. Decreased acromiohumeral distance is suggestive, which would be consistent with chronic rotator cuff disease. On the left, eskb-qj-lhynniko acromioclavicular joint degenerative changes are seen, with partial joint narrowing noted. The left glenohumeral joint demonstrates rcyp-sa-rjqqrckg degenerative changes, without significant joint narrowing. No fracture or dislocation is seen. Reading Location: [place] [id number]
--- NOTE | 2024-12-03 10:49 | RAD_ITS ---
PROCEDURE: SHOULDER MIN 2 VIEWS 12/03/2024 REASON FOR EXAM: BILATERAL SHOULDER PAIN TECHNIQUE: Four view right shoulder series and four view left shoulder series (combined dictation). COMPARISON: None. RAD/Shoulder min 2 Views IMPRESSION: A spinal neurostimulator is seen, with tip projecting in the T6-T7 level. Dege nerative changes and dextroscoliosis of the thoracic spine noted. The right acromioclavicular joint demonstrates cgmv-ff-zgxypnhi degenerative ch anges with partial joint narrowing. Qifb-ni-jllvnhty right glenohumeral joint degenerative changes are seen, but wi thout significant associated joint narrowing. Decreased acromiohumeral distance is suggestive, which would be consistent with chronic rotator cuff disease. On the left, zbkf-vh-nolggqnz acromioclavicular joint degenerative changes are seen, with partial joint narrowing noted. The left glenohumeral joint demonstrates sprh-ku-tejzeamr degenerative changes, without significant joint narrowing. No fracture or dislocation is seen. Reading Location: [place] [id number]
== END | disposition home or self-care (01) ==
LOC: MTRAD 10:47
PROVIDERS: PCP Family Medicine; Referring Provider Anesthesiology Pain Medicine; Visit Provider Anesthesiology Pain Medicine
DX: M54.2 Cervicalgia (principal); M25.511 Pain in right shoulder; M25.512 Pain in left shoulder
CPT/HCPCS: 72052; 73030